=== PATIENT | female | born 1950 | race Caucasian/White ===

== ENCOUNTER 2016-09-02 09:40 | Observation (INO) | payer OTHER ==
[2016-08-29 08:00] VITALS: BMI 24.0
[~2016-09-02] VITALS: Ht 167.6 cm; Wt 72.0 kg
[~2016-09-02 09:40] MED LIST: ALPR1TAB3 PO; BRIM0.1S OPB; FENTANYL CITRATE INJ 50 MCG/1 ML 2 ML VIAL ONE; LSN25 PO; METO100T44 PO; MIDAZOLAM HCL 1 MG/ML 2ML VIAL ONE; OXGN; PANT1TAB48 PO; SPIR25TA PO
[2016-09-02 09:57] VITALS: BP 93/46; PULSE 71; TEMP 36.8; O2SAT 94; Ht 167.6 cm; Wt 72.0 kg
[2016-09-02 10:23] LABS: PROTHROMBIN TIME (PATIENT) 10.2 SECONDS (9.0-12.0)
[2016-09-02] MEDS ORDERED: DEXAMETHASONE SOD INJ 4 MG/ML VIAL ONE (10:25)
[2016-09-02] MEDS ORDERED: LIDOCAINE HCL 2% 2 ML VIAL (20MG/ML) ONE ×2 (10:25→11:14)
[2016-09-02] MEDS ORDERED: PROPOFOL IV EMULSION 10 MG/ML 20 ML VIAL IV ONE ×2 (10:25→11:14)
[2016-09-02] MEDS ORDERED: MIDAZOLAM HCL 1 MG/ML 2ML VIAL ONE (10:25)
[2016-09-02] MEDS ORDERED: ONDANSETRON INJ 2 MG/ML 2 ML VIAL ONE ×2 (10:25→11:14)
--- NOTE | 2016-09-02 10:25 | History & Physical Bridge Note ---
H&P Re-Evaluation Bridge Note: I have examined the patient, reviewed the History & Physical and in the interval since the performance of the History & Physical I have noted the following changes of clinical significance: No changes noted pt marked coumadin had been stopped son to be here later
[2016-09-02] MEDS ORDERED: FENTANYL CITRATE INJ 50 MCG/1 ML 2 ML VIAL ONE (10:26)
[2016-09-02] MEDS: BACITRACIN 50000 UNIT VIAL ONE ×2 (10:33→11:45)
[2016-09-02] MEDS ORDERED: BUPIVACAINE 0.5 % 5 MG/1 ML MPF 30ML VIAL ONE (10:33)
[2016-09-02] MEDS ORDERED: HYDROmorphone INJ 2 MG/ML SYR/VIAL ONE (10:49)
[2016-09-02] MEDS ORDERED: VANCOMYCIN 1GM/270ML NSS IV SCH (11:00)
[2016-09-02] MEDS ORDERED: EpHEDrine SULFATE 50MG/5ML SYR ONE (11:14)
[2016-09-02] MEDS ORDERED: VANCOMYCIN HCL 1000MG/20ML VIAL ONE (11:19)
--- NOTE | 2016-09-02 11:42 | [facility] Post Operative Brief Note ---
Immediate Operative Summary Operative Date September 02, 2016. Pre-Operative Diagnosis Incarcerated Left Inguinal Hernia Post-Operative Diagnosis Incarcerated Left Inguinal Hernia indirect Procedure(s) Performed Left Open Inguinal Hernia Repair(олег) Surgeon Dr. Albright Machine Fitter Surgeon(s) Yokasta Kunz-PAC Estimated Blood Loss 5 ML Findings indirect left ing hernia large displacing ext oblique fibers to sub cut Specimens none
[2016-09-02] MEDS ORDERED: LACTATED RINGER'S 1000ML 1,000 ML IV SCH (11:52)
[2016-09-02] MEDS ORDERED: ONDANSETRON INJ 2 MG/ML 2 ML VIAL IV PRN ×2 (12:00→12:15)
[2016-09-02] MEDS ORDERED: MoRPHine SULFATE 4 MG/ML 1 ML CARP\\VIAL IV PRN (12:00)
[2016-09-02] MEDS ORDERED: HYDROmorphone INJ 1 MG/ML SYR ONE (12:01)
[2016-09-02] MEDS ORDERED: HYDROmorphone INJ 2 MG/ML SYR/VIAL IV PRN (12:15)
[2016-09-02] MEDS ORDERED: EpHEDrine SULFATE INJ 50 MG/ML AMP IV PRN (12:15)
[2016-09-02] MEDS ORDERED: ATROPINE SULFATE 0.1 MG/ML 5ML SYR IV PRN (12:15)
[2016-09-02] MEDS ORDERED: PHENYLEPHRINE 100MCG/ML 5ML SYR IV PRN (12:15)
--- NOTE | 2016-09-02 12:30 | Anesthesiology Progress Note ---
Anesthesia Post Op Note Date & Time September 02, 2016 at 12:29 Vital Signs Pain Intensity: 3 Vital Signs Past 12 Hours Date Time Temp Pulse Resp B/P Pulse Ox O2 Delivery O2 Flow Rate FiO2 09/02/16 12:21 72 16 09/02/16 12:21 73 16 99 09/02/16 12:20 116/53 09/02/16 12:16 75 16 09/02/16 12:16 73 16 99 09/02/16 12:15 117/60 09/02/16 12:11 71 13 100 09/02/16 12:11 72 13 09/02/16 12:10 118/61 09/02/16 12:08 77 16 100 09/02/16 12:08 76 16 09/02/16 12:05 124/63 09/02/16 12:03 74 19 100 09/02/16 12:03 75 19 09/02/16 12:00 121/67 09/02/16 11:58 78 20 09/02/16 11:58 77 20 100 09/02/16 11:55 126/73 09/02/16 11:53 82 15 122/66 100 09/02/16 11:53 82 15 09/02/16 11:53 36.6 84 16 112/66 100 Mask 10 09/02/16 09:57 36.8 71 16 93/46 94 Room Air Notes Mental Status: alert / awake / arousable, participated in evaluation Pt Amnestic to Procedure: Yes Nausea / Vomiting: adequately controlled Pain: adequately controlled Airway Patency, RR, SpO2: stable & adequate BP & HR: stable & adequate Hydration State: stable & adequate Anesthetic Complications: no major complications apparent
[2016-09-02] MEDS: OXYCODONE/ACETAMINOPHEN 5-325 TAB PO PRN ×3 (13:16→23:43)
[2016-09-02] MEDS: ALPRAZOLAM 0.5 MG TAB PO SCH ×3 (13:19→21:14)
[2016-09-02] MEDS ORDERED: NURSING VERBAL MED ORDER ONE (14:30)
[2016-09-02] MEDS ORDERED: IV FLUIDS COMPLETED PRN (14:30)
--- NOTE | 2016-09-02 14:33 | OPERATIVE REPORT ---
DATE OF OPERATION: 09/02/2016 SURGEON: Dr. Albright. COMMERCIAL LOAN MANAGER: GEO Connelly PREOPERATIVE DIAGNOSIS: Left inguinal hernia. POSTOPERATIVE DIAGNOSIS: Left incarcerated indirect inguinal hernia. PROCEDURE: Open repair, left indirect inguinal hernia with mesh with primary (Bassini) repair. SUMMARY: The patient was brought into the operating room theater. The left lower quadrant was prepped with Betadine scrubbing solution and properly draped. We had ordered some vancomycin to be given to the patient, in case we would put mesh in there, but this was handled by anesthesia and pharmacy. We used 1% Xylocaine without epinephrine to infiltrate the skin 2 fingerbreadths medial anterior superior iliac crest, the fascia external oblique where local was used along the incision. We made an incision by the groin crease parallel to the inguinal ligament extending about 2.5 to 3 inches, deepened through subcutaneous tissue. The patient had a significant amount of fatty tissue between the subQ was ligated, but then we were able to get what appears to be under Milana fascia, well delineated fatty tissue consistent with possibly lipoma. We were not sure where this was coming from, at first it had the appearance that this was a femoral hernia coming through the canal since we could see some external oblique fibers superomedially which had the impression that this was the shelving portion of the inguinal ligament. As we freed more around this, we then got onto the symphysis pubis. We were able to identify that this was actually the external oblique fascia there had been ripped from the inferior aspect of this large incarcerated hernia that had gone through the fibers of the external oblique into the subcutaneous tissue and also to the external ring. We actually could see the fibers of the external oblique down into the inferiorly and all the way down to the inguinal ligament. With this, we then maneuvered all this fatty tissue out of the way and got to the point that this was an indirect hernia coming through a significant amount of fatty tissue. The cord structure and round ligament was barely visible with fiber stand. We identified the ilioinguinal nerve and avoided it. At this point, I elected to use a primary repair of this rather than put any mesh, since the tissue was lax and therefore we used #0 silk suture approximating transversalis fascia, the shelving portion of the inguinal ligament. We paid attention to avoid the ilioinguinal nerve. There was a small vessel along the inferior epigastric that we ligated with 3-0 silk suture. The repair appeared to be solid. Then we closed the external oblique on top of the repair with interrupted 3-0 silk suture completely reconstructing the floor of the external oblique to the external ring, which was nonexistent. Subcutaneous tissue was irrigated, skin edges approximated with edgar after we closed the Milana fascia with 2-0 Vicryl suture. The procedure was tolerated well by the patient. Estimated blood loss approximately 5 mL. The patient was taken to recovery room in good condition. I attest to the content of the Intraoperative Record and any orders documented therein. Any exceptio ns are noted below.
--- NOTE | 2016-09-02 15:07 | CARDIOLOGY CONSULTATION ---
DATE OF CONSULTATION: 09/02/2016 DATE OF CONSULTATION: 09/02/2016. REQUESTED BY: Dr. Albright. REASON FOR CONSULTATION: Postop cardiac management. HISTORY OF PRESENT ILLNESS: This is a 66-year-old female who is well known to our service with a nonischemic cardiomyopathy and severe LV dysfunction with an estimated left ventricular ejection fraction of 20%. She is [place] [employer] class 3 congestive heart failure. She has an ICD biventricular pacemaker in place. This morning she underwent an elective inguinal hernia repair that was noncomplicated. She is admitted for observation post surgery. She is actually doing quite well and is ambulating to the bathroom and has no complaints. ALLERGIES: CEFAZOLIN, CIPROFLOXACIN, CLINDAMYCIN, DIPHENHYDRAMINE, FENTANYL, DILANTIN, TRAMADOL, ZOLPIDEM. PAST MEDICAL HISTORY: As outlined above, the patient has a nonischemic cardiomyopathy with severe LV dysfunction and an estimated left ventricular ejection fraction of 20% first diagnosed in 2009 at which time she had normal coronaries by cardiac catheterization. She has had chronic systolic heart failure and is currently at class 3 [place] [employer]. The patient is status post biventricular pacemaker ICD which was implanted for primary prevention. She is status post hip replacement. She does have a history of anxiety and depression. SOCIAL HISTORY: She lives independently. She is a nonsmoker. FAMILY MEDICAL HISTORY: Noncontributory. REVIEW OF SYSTEMS: A 10-point review of systems is negative except for the history of chief complaint. PHYSICAL EXAMINATION: GENERAL: She is alert and oriented in no acute distress. VITAL SIGNS: Blood pressure is 112/60, pulse is regular at 68. She is afebrile. HEAD, EYES, EARS, NOSE, AND THROAT: She is normocephalic. Pupils are equal and reactive to light. Extraocular muscles are intact bilaterally. NECK: The neck veins are flat. Carotids have good upstrokes bilaterally without bruits. Thyroid is nonpalpable. RESPIRATORY: Breath sounds equal bilaterally and clear to auscultation. CARDIOVASCULAR: Heart has a regular rhythm. Normal S1, S2. No S3 or S4. GASTROINTESTINAL: Abdomen is soft and nontender. The patient is post-inguinal hernia repair. EXTREMITIES: Free of edema, digit clubbing, or cyanosis. NEUROLOGIC: Grossly intact. SKIN: Warm to touch. LYMPH NODES: Negative to palpation. LABORATORY DATA: Admission INR is 1.0. IMPRESSION: 1. Status post inguinal hernia repair. 2. Nonischemic cardiomyopathy with an estimated left ventricular ejection fraction of 20%. 3. ICD biventricular pacemaker. RECOMMENDATIONS: The patient will be started on her home medications. She will also be started on warfarin tonight. If all goes well, I suspect that her hospital stay will be brief.
[2016-09-02 15:30] VITALS: BP 80/51; PULSE 70; TEMP 36.3; O2SAT 95
[2016-09-02] MEDS: WARFARIN SOD 5 MG TAB PO SCH (16:54)
[2016-09-02 19:05] VITALS: BP 80/51; PULSE 79; TEMP 36.4; O2SAT 95
[2016-09-02 19:45] VITALS: BP 93/58
[2016-09-02 20:00] VITALS: O2SAT 95
[2016-09-02] MEDS: METOPROLOL SUCC 50MG EXT REL TAB PO SCH (21:00)
[2016-09-02] MEDS ORDERED: LISINOPRIL 2.5 MG TAB PO SCH (21:00)
[2016-09-02] MEDS: LISINOPRIL 2.5 MG TAB PO SCH (21:00)
[2016-09-02 21:10] VITALS: BP 100/89
[2016-09-02] MEDS: DOCUSATE SODIUM 100 MG CAP PO SCH (21:10)
[2016-09-02] MEDS: PANTOprazole SOD 40 MG TAB PO SCH (21:10)
[2016-09-02] MEDS: SPIRONOLACTONE 25 MG TAB PO SCH (21:11)
[2016-09-02] MEDS: TRAVOPROST Z 0.004% OPH SOLN 2.5 ML BTL OPB SCH (21:11)
[2016-09-02] MEDS: [UNRECOGNIZED DRUG - REMARK] SCH (23:32)
[2016-09-03] VITALS (17 sets, daily range): BP systolic 81–115; BP diastolic 50–71; PULSE 70–92; TEMP 36.5–37.6; O2SAT 91–98
[2016-09-03] MEDS: OXYCODONE/ACETAMINOPHEN 5-325 TAB PO PRN ×3 (06:23→21:21)
[2016-09-03 07:20] LABS: BASO % 0.3 %; BASO ABS # 0.02 K/uL (0-0.2); COMPLETE YES; EOS % 3.2 %; HEMATOCRIT 33.3 % (37-47); LYMPH % 27.2 %; LYMPH ABS # 1.85 K/uL (1.2-3.4); MEAN CELL VOLUME 90.5 fL (80-100); MEAN CORPUSCULAR HEMOGLOBIN 28.5 pg (25-34); MEAN CORPUSCULAR HGB CONC 31.5 g/dl (32-36); MEAN PLATELET VOLUME 9.1 fL (7.4-10.4); NEUT % 60.3 %; PLATELET COUNT 197 K/uL (130-400); RED BLOOD COUNT 3.68 M/uL (4.2-5.4)
--- NOTE | 2016-09-03 07:42 | SURGERY PROGRESS NOTE ---
DATE: 09/03/2016 Natali is resting comfortably. She has virtually no pain in the left inguinal area from the hernia. Intraoperative findings were discussed with her. The abdominal exam is negative. The dressing is dry. Last vitals showed a temperature of 36.6, pulse 71, respirations not recorded, blood pressure 90/56, O2 sats 96 on room air. She has voided without problem. At this point, certainly she can go home later on today. She will be started on Coumadin. We will continue with such. Will see her back in the office in 1 week. She was instructed as far as wound care. She can shower and only lift a gallon of milk. We will make sure to check with cardiology prior to discharging her.
[2016-09-03 07:55] LABS: BUN/CREATININE RATIO 10.1 (10-20); CALCIUM 8.2 mg/dl (8.5-10.1); CREATININE 0.7 mg/dl (0.60-1.20); POTASSIUM 3.8 mmol/L (3.5-5.1)
[2016-09-03] MEDS: [UNRECOGNIZED DRUG - REMARK] SCH ×3 (08:00→23:45)
[2016-09-03] MEDS ORDERED: OXYC-57 PO (08:09)
--- NOTE | 2016-09-03 08:11 | Discharge Instructions ---
Discharge Instructions Date of Service September 03, 2016. Admission Reason for Admission: Left Inguinal Hernia Discharge Discharge Diagnosis / Problem: Inguinal hernia repair Discharge Goals Goal(s): Decrease discomfort Activity Recommendations Activity Limitations: as noted below Lifting Limitations: no more than 10 pounds Shower/Bathe: no limitations (ok to shower) Driving or Machine Use: 1 week . Instructions / Follow-Up Instructions / Follow-Up Dr. Albright in 1 week, call [phone] if you do not already have an appt Current Hospital Diet Patient's current hospital diet: Regular Diet Discharge Diet Recommended Diet: Regular Diet Procedures Procedures Performed: Left Open Inguinal Hernia Repair(олег) Pending Studies Studies pending at discharge: no Medical Emergencies . Who to Call and When: Medical Emergencies: If at any time you feel your situation is an emergency, please call 911 immediately. . Non-Emergent Contact Non-Emergency issues call your: Surgeon Call Non-Emergent contact if: you have a fever, temperature is above 101.5, your pain is not controlled, wound has increased redness . "Provider Documentation" section prepared by Maxime Kunz. . VTE Core Measure Inpt VTE Proph given/why not?: SCD's
[2016-09-03] MEDS: METOPROLOL SUCC 50MG EXT REL TAB PO SCH ×2 (09:00→21:20)
[2016-09-03] MEDS: TORSEMIDE 20 MG TAB PO SCH (09:00)
[2016-09-03] MEDS: ALPRAZOLAM 0.5 MG TAB PO SCH ×4 (09:00→21:00)
[2016-09-03] MEDS: PANTOprazole SOD 40 MG TAB PO SCH ×2 (09:30→21:21)
[2016-09-03] MEDS: DOCUSATE SODIUM 100 MG CAP PO SCH ×2 (09:30→21:20)
--- NOTE | 2016-09-03 09:53 | Anesthesiology Progress Note ---
Anesthesia Post Op Note Date & Time September 03, 2016 at 09:53 Vital Signs Pain Intensity: 8.0 Vital Signs Past 12 Hours Date Time Temp Pulse Resp B/P Pulse Ox O2 Delivery O2 Flow Rate FiO2 09/03/16 09:30 86/55 09/03/16 07:04 36.5 73 16 91/56 91 Room Air 09/03/16 04:00 36.6 71 90/56 98 Nasal Cannula 2.0 09/03/16 04:00 98 Nasal Cannula 2.0 09/03/16 00:34 72 100/63 09/03/16 00:00 36.5 70 88/51 98 2.0 09/03/16 00:00 98 Nasal Cannula 2.0 Notes Mental Status: alert / awake / arousable, participated in evaluation Pt Amnestic to Procedure: Yes Nausea / Vomiting: adequately controlled Pain: adequately controlled Airway Patency, RR, SpO2: stable & adequate BP & HR: stable & adequate Hydration State: stable & adequate Anesthetic Complications: no major complications apparent
--- NOTE | 2016-09-03 10:21 | Cardiology Follow-Up ---
Subjective General Date of Service: September 03, 2016. Chief Complaint: Fatigue Pt evaluation today including: conversation w/ patient, physical exam, chart review, lab review, review of studies, review of inpatient medication list History of Present Illness + Incisional discomfort. Walked earlier this morning without significant difficulty. Tired, lethargic currently Hypotension observed, below systolic baseline of 90's-100's No chest pain. No palpitations. Baseline dyspnea, without orthopnea, PND, or increased edema. Telemetry: Sinus, paced, Rare PVC's in singles, one couplet. Allergies Coded Allergies: Cefazolin (Verified Allergy, Severe, ANAPHYLAXIS, 08/29/16) Phenytoin (Verified Allergy, Intermediate, HIVES, 08/29/16) PER ROUTINE PREOP ORDERS [id number] Diphenhydramine (Verified Allergy, Mild, HAS OPPOSITE EFFECTS, 08/29/16) Zolpidem (Verified Allergy, Mild, HAS OPPOSITE EFFECTS, 08/29/16) Ciprofloxacin (Verified Allergy, Unknown, UNKNOWN, 08/29/16) Clindamycin (Verified Allergy, Unknown, UNKNOWN, 08/29/16) Fentanyl (Verified Allergy, Unknown, HAS OPPOSITE EFFECTS, 08/29/16) Tramadol (Verified Adverse Reaction, Intermediate, SEIZURE, 09/02/16) PER ROUTINE PRE-OP ORDERS [id number] Social History Smoking Status: Never Smoker Hx Tobacco Use In Past Year?: No Hx Alcohol Use - Type And Amou: No Hx Substance Use - Type And Am: No Problem List Medical Problems: (1) Hypomagnesemia Status: Acute Review of Systems Respiratory: No cough, No dyspnea at rest, No dyspnea on exertion, No hemoptysis, No shortness of breath, No sputum, No wheezing Cardiac: No chest pain, No edema, No orthopnea, No palpitations Physical Exam Vital Signs Last Vital Signs Documentation Date Time Temp Pulse Resp B/P Pulse Ox O2 Delivery O2 Flow Rate FiO2 09/03/16 09:30 86/55 09/03/16 07:04 36.5 73 16 91 Room Air 09/03/16 04:00 2.0 Physical Exam Constitutional: Level of Distress: NAD Psychiatric: Mental Status: lethargic Orientation: to time, to place, to person Memory: recent memory normal, remote memory normal Head: normocephalic, atraumatic Eyes: Pupils: PERRLA Neck: pertinent finding (Neck veins are flat) Lungs: Respiratory effort: no dyspnea Auscultation: breath sounds normal, CTA except as noted, no wheezing, no rales/crackles, no rhonchi Cardiovascular: Heart Auscultation: RRR (76 bpm), no rubs Peripheral Pulses: Radial Pulse: normal on the left, normal on the right Dorsalis Pedis Pulse: normal on the left, normal on the right Abdomen: Bowel Sounds: normal Extremities: no cyanosis, no clubbing, edema (Minimal) Neurologic: Cranial Nerves: grossly intact Assessment and Plan Assessment and Plan Status post September 02, 2016 open repair of an incarcerated indirect left inguinal hernia by Dr. Albright History of severe nonischemic cardiomyopathy with EF 20%, NYHA Class III+ dyspnea, status post Medtr[employer] BiV-ICD implantation History of ventricular fibrillation status post successful ICD discharge, April 2016 Normal coronaries via September 21, 2009 cardiac catheterization Current volume status appears to be mildly hypovolemic RECOMMENDATIONS/PLAN: Attempt to continue Toprol XL as prescribed. Hold torsemide and spironolactone this morning Hold lisinopril tonight. Continue telemetry. Cardiology attending physician: Patient seen and examined at the bedside. She is resting comfortably. Blood pressure slowly improving. A.m. antihypertensive medications were held including beta carola therapy. Denies chest pain or shortness of breath. Mild incisional discomfort noted. PE: VSS, GEN: NAD, AAO x 3. Heart: Regular, normal S1-S2. No murmur. Lungs: Clear bilateral, no rales, rhonchi, or wheeze. Extremities: No edema. A/P: Agree with above PAC history, physical exam, assessment, and plan. We will attempt to continue beta carola therapy uninterrupted. Other antihypertensive medications will remain on hold including diuretic therapy. Will reassess volume status, blood pressure in the a.m. Continue telemetry monitoring. Tk Sheriff DO, [facility] Laboratory Results Last 24 Hours Test 09/03/16 06:53 White Blood Count 6.80 K/uL Red Blood Count 3.68 M/uL Hemoglobin 10.5 g/dL Hematocrit 33.3 % Mean Corpuscular Volume 90.5 fL Mean Corpuscular Hemoglobin 28.5 pg Mean Corpuscular Hemoglobin Concent 31.5 g/dl Platelet Count 197 K/uL Mean Platelet Volume 9.1 fL Neutrophils (%) (Auto) 60.3 % Lymphocytes (%) (Auto) 27.2 % Monocytes (%) (Auto) 9.0 % Eosinophils (%) (Auto) 3.2 % Basophils (%) (Auto) 0.3 % Neutrophils # (Auto) 4.10 K/uL Lymphocytes # (Auto) 1.85 K/uL Monocytes # (Auto) 0.61 K/uL Eosinophils # (Auto) 0.22 K/uL Basophils # (Auto) 0.02 K/uL RDW Standard Deviation 52.3 fL RDW Coefficient of Variation 15.7 % Immature Granulocyte % (Auto) 0.0 % Immature Granulocyte # (Auto) 0.00 K/uL Sodium Level 143 mmol/L Potassium Level 3.8 mmol/L Chloride Level 107 mmol/L Carbon Dioxide Level 30 mmol/L Anion Gap 6.0 mmol/L Blood Urea Nitrogen 7 mg/dl Creatinine 0.70 mg/dl Est Creatinine Clear Calc Drug Dose 82.4 ml/min Estimated GFR () 106.1 Estimated GFR (Non- 91.6 BUN/Creatinine Ratio 10.1 Random Glucose 85 mg/dl Calcium Level 8.2 mg/dl
[2016-09-03] MEDS: WARFARIN SOD 5 MG TAB PO SCH (17:35)
[2016-09-03] MEDS: LISINOPRIL 2.5 MG TAB PO SCH (21:00)
[2016-09-03] MEDS: SPIRONOLACTONE 25 MG TAB PO SCH (21:00)
[2016-09-03] MEDS: TRAVOPROST Z 0.004% OPH SOLN 2.5 ML BTL OPB SCH (21:21)
[2016-09-04] MEDS: OXYCODONE/ACETAMINOPHEN 5-325 TAB PO PRN ×2 (03:11→12:24)
[2016-09-04 04:23] VITALS: BP 104/68; PULSE 79; TEMP 36.7; O2SAT 95
--- NOTE | 2016-09-04 07:07 | SURGERY PROGRESS NOTE ---
DATE: 09/04/2016 Natali is doing well. She is alert, coherent and in no distress, having virtually no pain. Her last vitals showed a temperature of 36.7, pulse 79, respirations 19, blood pressure 104/68, O2 sats 95 on room air. The dressing on the left groin incision was removed. The incision is intact. There is no ecchymosis, no drainage. At this point, we will leave the final decision discharge to the cardiology service. From my point of view, she can be discharged. She can and increase her diet. Instructions will be given regarding her activity and followup.
[2016-09-04 08:41] VITALS: BP_SYST 102; BP_SYST 75; BP_DIAS 48; BP_DIAS 67; PULSE 75; TEMP 36; O2SAT 95
[2016-09-04 08:55] VITALS: BP_SYST 78; BP_SYST 95; BP_DIAS 48; BP_DIAS 61
[2016-09-04] MEDS: DOCUSATE SODIUM 100 MG CAP PO SCH (08:55)
[2016-09-04] MEDS: METOPROLOL SUCC 50MG EXT REL TAB PO SCH ×2 (08:55→09:06)
[2016-09-04] MEDS: TORSEMIDE 20 MG TAB PO SCH (08:55)
[2016-09-04] MEDS: PANTOprazole SOD 40 MG TAB PO SCH (08:55)
[2016-09-04] MEDS: ALPRAZOLAM 0.5 MG TAB PO SCH (09:02)
[2016-09-04 09:05] VITALS: BP 102/50
--- NOTE | 2016-09-04 09:24 | Cardiology Follow-Up ---
Subjective General Date of Service: September 04, 2016. Chief Complaint: Post op evaluation Pt evaluation today including: conversation w/ patient, physical exam, chart review, lab review, review of studies, review of inpatient medication list History of Present Illness No complaints. Anxious to return home. Denies chest pain, palpitations, or dyspnea above baseline. No orthopnea, PND, or increased edema. Appetite normal. Tolerable incisional discomfort Telemetry: Sinus, paced. Transient sinus tachycardia overnight. Rare PVC's in singles, couplet. Allergies Coded Allergies: Cefazolin (Verified Allergy, Severe, ANAPHYLAXIS, 08/29/16) Phenytoin (Verified Allergy, Intermediate, HIVES, 08/29/16) PER ROUTINE PREOP ORDERS [id number] Diphenhydramine (Verified Allergy, Mild, HAS OPPOSITE EFFECTS, 08/29/16) Zolpidem (Verified Allergy, Mild, HAS OPPOSITE EFFECTS, 08/29/16) Ciprofloxacin (Verified Allergy, Unknown, UNKNOWN, 08/29/16) Clindamycin (Verified Allergy, Unknown, UNKNOWN, 08/29/16) Fentanyl (Verified Allergy, Unknown, HAS OPPOSITE EFFECTS, 08/29/16) Tramadol (Verified Adverse Reaction, Intermediate, SEIZURE, 09/02/16) PER ROUTINE PRE-OP ORDERS [id number] Social History Smoking Status: Never Smoker Hx Tobacco Use In Past Year?: No Hx Alcohol Use - Type And Amou: No Hx Substance Use - Type And Am: No Problem List Medical Problems: (1) Hypomagnesemia Status: Acute Physical Exam Vital Signs Last Vital Signs Documentation Date Time Temp Pulse Resp B/P Pulse Ox O2 Delivery O2 Flow Rate FiO2 09/04/16 09:05 102/50 09/04/16 08:41 36.0 75 29 95 Room Air 09/03/16 04:00 2.0 Physical Exam Constitutional: Level of Distress: NAD Psychiatric: Orientation: to time, to place, to person Memory: recent memory normal, remote memory normal Head: normocephalic, atraumatic Eyes: Pupils: PERRLA Neck: pertinent finding (Neck veins are flat) Lungs: Respiratory effort: no dyspnea Auscultation: breath sounds normal, CTA except as noted, no wheezing, no rales/crackles, no rhonchi Cardiovascular: Heart Auscultation: RRR, no rubs Peripheral Pulses: Radial Pulse: normal on the left, normal on the right Dorsalis Pedis Pulse: normal on the left, normal on the right Abdomen: Bowel Sounds: normal Extremities: no cyanosis, no edema, no clubbing Neurologic: Cranial Nerves: grossly intact Assessment and Plan Assessment and Plan Status post September 02, 2016 open repair of an incarcerated indirect left inguinal hernia by Dr. Albright History of severe nonischemic cardiomyopathy with EF 20%, NYHA Class III+ dyspnea, status post Medtronic BiV-ICD implantation History of ventricular fibrillation status post successful ICD discharge, April 2016 Normal coronaries via September 21, 2009 cardiac catheterization Current volume status appears normovolemic. RECOMMENDATIONS/PLAN: OK for discharge to home Hold torsemide, spironolactone, and lisinopril today. Resume as before hospitalization, in the AM of 09/05/2016 Continue Toprol XL as prescribed. Cardiology follow-up in 1-2 weeks. Office aware, will call patient with arrangements. CARDIOLOGY ATTENDING ADDENDUM: Case discussed with Mr Paulino. Patient was discharged before she was examined by the undersigned. Agree with Shaun Paulino PA-C's findings and plans as documented above.
[2016-09-04 10:33] VITALS: BP 102/50; PULSE 75; TEMP 36; O2SAT 95
--- NOTE | 2016-09-06 10:42 | DISCHARGE SUMMARY ---
PRIMARY DISCHARGE DIAGNOSIS: Incarcerated left inguinal hernia. SECONDARY DISCHARGE DIAGNOSES: 1. Cardiomyopathy. 2. Anxiety. PROCEDURE PERFORMED: Open left indirect inguinal hernia repair ([place]). CONSULTATIONS: [facility]. HOSPITAL COURSE: The patient is a 66-year-old female brought in through same day and taken to the operating room for repair of chronically incarcerated left inguinal hernia. The procedure was well tolerated. She was transferred to PCU for monitoring given her history of cardiomyopathy. Cardiology was consulted routinely. She did well overnight and on postoperative day 1 was stable from a surgical standpoint; however, her systolic pressure was running in the 80s. She was continued on her Toprol, but her torsemide, lisinopril and spironolactone were held. By postoperative day 2, her blood pressure had remained stable, was running in the 90s-100s systolic, which is her baseline. She was tolerating diet and oral analgesics. Incision was dry. She was stable for discharge. DISCHARGE INSTRUCTIONS: Discharge home. Follow up with Dr. Albright in 1 week. Follow up with Shaun Paulino in 1-2 weeks. DISCHARGE MEDICATIONS: Percocet 1-2 tablets every 4 hours as needed. Continue to hold her lisinopril, spironolactone and torsemide for this evening dose and resume tomorrow with her regular routine. Resume Coumadin 5 mg daily, Protonix 40 mg daily, Toprol-XL 100 mg b.i.d., Xanax 1 mg 4 times daily as needed, Alphagan eyedrops, Travatan eyedrops and nighttime oxygen.
[2016-10-21] MEDS ORDERED: TRAV0.00 OPB (13:55)
[2016-10-21] MEDS ORDERED: WARF5TAB7 PO (17:33)
[2016-11-14] MEDS ORDERED: SPR25 PO ×2 (10:22→11:00)
[2016-11-14] MEDS ORDERED: LSN5 PO (10:22)
[2016-11-14] MEDS ORDERED: ACET-749 PO (10:23)
[2016-11-14] MEDS ORDERED: DMD20 PO (11:00)
[2017-01-10] MEDS ORDERED: MCRK20 PO (15:54)
== END 2016-09-04 12:59 | disposition home or self-care (01) ==
LOC: ENRESERVTM → ENRESERVDT → C.ACU 09:40 → C.2T 11:57 → INTOOBSV 11:57
PROVIDERS: ADMIT Surgery; ATTEND Surgery
DX: K40.30 Unilateral inguinal hernia, with obstruction, without gangrene, not specified as recurrent (principal); R53.83 Other fatigue; I50.22 Chronic systolic (congestive) heart failure; I42.9 Cardiomyopathy, unspecified; Z95.810 Presence of automatic (implantable) cardiac defibrillator

== ENCOUNTER 2016-10-21 18:14 | Emergency (ER) | payer OTHER ==
[~2016-10-21] VITALS: Ht 167.6 cm; Wt 74.4 kg
[~2016-10-21 18:14] MED LIST changes: -FENTANYL CITRATE INJ 50 MCG/1 ML 2 ML VIAL ONE; -LSN25 PO; -MIDAZOLAM HCL 1 MG/ML 2ML VIAL ONE; +OXYC-57 PO; -SPIR25TA PO; +TRAV0.00 OPB; +WARF5TAB7 PO
[2016-10-21 18:16] VITALS: TEMP 36.5; Ht 167.6 cm; Wt 74.4 kg
[2016-10-21 18:33] VITALS: O2SAT 95
[2016-10-21] MEDS ORDERED: [UNRECOGNIZED DRUG - CODE] PO (19:05)
[2016-10-21] MEDS ORDERED: DMD20 PO (19:05)
[2016-10-21 19:08] LABS: BASO % 0.4 %; BASO ABS # 0.04 K/uL (0-0.2); COMPLETE YES; EOS % 1.3 %; HEMATOCRIT 39.7 % (37-47); IG% 0.2 %; LYMPH % 18.1 %; LYMPH ABS # 1.89 K/uL (1.2-3.4); MEAN CELL VOLUME 86.1 fL (80-100); MEAN CORPUSCULAR HEMOGLOBIN 29.3 pg (25-34); MEAN PLATELET VOLUME 9.5 fL (7.4-10.4); MONO % 3.8 %; NEUT % 76.2 %; PLATELET COUNT 310 K/uL (130-400); RED BLOOD COUNT 4.61 M/uL (4.2-5.4); WHITE BLOOD COUNT 10.47 K/uL (4.8-10.8)
[2016-10-21] MEDS ORDERED: SPR25 PO (19:08)
--- NOTE | 2016-10-21 19:19 | DIAGNOSTIC IMAGING REPORT ---
CHEST ONE VIEW PORTABLE CLINICAL HISTORY: Shortness of breath COMPARISON STUDY: 04/12/2016 FINDINGS: The heart is borderline enlarged. There is a left subclavian pacer/defibrillator present. There is no failure. There is no lobar consolidation. There are subsegmental atelectatic changes at the right lung base. Postsurgical changes involve the right humerus.[ IMPRESSION: No active disease in the chest. Electronically signed by: Francisco Adam M.D. 10/21/2016 7:18 PM Dictated Date/Time: 10/21/2016 7:17 PM
[2016-10-21 19:20] LABS: INR 1.8 (0.9-1.1); PARTIAL THROMBOPLASTIN RATIO 1.3; PROTHROMBIN TIME (PATIENT) 19.6 SECONDS (9.0-12.0)
[2016-10-21 19:38] LABS: ALB/GLOB RATIO 0.9 (0.9-2); ALKALINE PHOSPHATASE 136 U/L (45-117); ALT/SGPT 21 U/L (12-78); AST/SGOT 23 U/L (15-37); BLOOD UREA NITROGEN 11 mg/dl (7-18); BUN/CREATININE RATIO 11.7 (10-20); CALCIUM 8.5 mg/dl (8.5-10.1); CARBON DIOXIDE 27 mmol/L (21-32); CHLORIDE 101 mmol/L (98-107); GLUCOSE 112 mg/dl (70-99); POTASSIUM 3.6 mmol/L (3.5-5.1); SODIUM 141 mmol/L (136-145)
--- NOTE | 2016-10-21 19:57 | EMERGENCY ROOM VISIT NOTE ---
History Report prepared by Tyrese: Norman Arias Under the Supervision of: Dr. Gallito Dominguez D.O. First contact with patient: 18:29 Chief Complaint: CARDIAC ASSESSMENT Stated Complaint: CAN'T BREATH,CARDIAC PT,FILLING W/FLUID Nursing Triage Summary: pt reports sob started friday called dr paulino took extra torsemide. pt reports cardiac pt sob worse today History of Present Illness The patient is a 66 year old female who presents to the Emergency Room with complaints of intermittent shortness of breath for the past six days. The shortness of breath is worse with exertion. The patient's shortness of breath was worse today. The patient has had similar breathing difficulty in the past. She is also feeling very tired and feel like she could fall asleep. The patient was in contact with Shaun Paulino PA-C (Cardiology). She takes Torsemide for a history of heart failure. Source of History: patient Onset: six days ago Position: other (respiratory) Quality: other (shortness of breath) Timing: intermittent Modifying Factors (Worsening): exertion Associated Symptoms: + fatigue Review of Systems See HPI for pertinent positives & negatives. A total of 10 systems reviewed and were otherwise negative. Past Medical & Surgical Medical Problems: (1) Calculus of kidney and ureter (2) Cardiomyopathy (3) Chronic osteoarthritis (4) Dyslipidemia (5) Hypokalemia (6) Hypothyroidism (7) Inguinal hernia (8) Left bundle branch block (9) left ventricular mural thrombus (10) Mitral valve regurgitation (11) Pulmonary hypertension (12) s/p arthroscopy/meniscectomy right knee (13) s/p cardiac catheterization (14) s/p colonoscopy (15) s/p EGD (16) s/p hysterectomy (17) s/p ORIF right humerus fracture (18) s/p pacemaker insertion (19) s/p placement AICD (20) s/p sinus surgery (21) s/p ROBYN left (22) s/p ROBYN right (23) Systolic heart failure (24) Ventricular fibrillation Family History FH: breast cancer SISTER FH: lung disease FATHER Social History Smoking Status: Never Smoker Alcohol Use: none Drug Use: none Marital Status: Housing Status: lives with family Occupation Status: other Current/Historical Medications Scheduled Acetaminophen W/ Codeine (Acetaminophen/Codeine #4), 1 MG PO PRN UD Alprazolam (Xanax), 1 MG PO QID Brimonidine Tartrate (Alphagan P Oph), 1 DROP OPB BID Home O2 Therapy (Oxygen), 2 LITERS NA HS&PRN Metoprolol Succ (Toprol Xl) (Toprol-Xl ), 100 MG PO BID Pantoprazole (Protonix), 40 MG PO BID Spironolactone (Spironolactone), 25 MG PO QP Torsemide (Torsemide), 60 MG PO PT Travoprost (Travatan Z), 1 DROP OPB HS Warfarin Sod (Jantoven), 5 MG PO QPM Allergies Coded Allergies: Cefazolin (Verified Allergy, Severe, ANAPHYLAXIS, 08/29/16) Phenytoin (Verified Allergy, Intermediate, HIVES, 08/29/16) PER ROUTINE PREOP ORDERS [id number] Diphenhydramine (Verified Allergy, Mild, HAS OPPOSITE EFFECTS, 08/29/16) Zolpidem (Verified Allergy, Mild, HAS OPPOSITE EFFECTS, 08/29/16) Ciprofloxacin (Verified Allergy, Unknown, UNKNOWN, 08/29/16) Clindamycin (Verified Allergy, Unknown, UNKNOWN, 08/29/16) Fentanyl (Verified Allergy, Unknown, HAS OPPOSITE EFFECTS, 08/29/16) Tramadol (Verified Adverse Reaction, Intermediate, SEIZURE, 09/02/16) PER ROUTINE PRE-OP ORDERS [id number] Physical Exam Vital Signs Date Time Temp Pulse Resp B/P (MAP) Pulse Ox O2 Delivery O2 Flow Rate FiO2 10/21/16 19:32 106 20 113/71 97 Nasal Cannula 2.0 10/21/16 18:53 95 Nasal Cannula 2.0 10/21/16 18:47 107 17 107/70 96 Nasal Cannula 2.0 10/21/16 18:42 108 10/21/16 18:33 95 Nasal Cannula 2.0 10/21/16 18:30 91 Room Air 10/21/16 18:16 36.5 120 28 100/60 93 Room Air Physical Exam CONSTITUTIONAL/VITAL SIGNS: Reviewed / noted above. GENERAL: Non-toxic in appearance. INTEGUMENTARY: Warm, dry, and Cyr. HEAD: Normocephalic. EYES: without scleral icterus or trauma. ENT/OROPHARYNX: clear and moist. LYMPHADENOPATHY/NECK: Is supple without lymphadenopathy or meningismus. RESPIRATORY: Bibasilar crackles. No increased work of breathing. CARDIOVASCULAR: Regular rate and rhythm. GI/ABDOMEN: Soft and nontender. No organomegaly or pulsatile mass. No rebound or guarding. Normal bowel sounds. EXTREMITIES: Warm and well perfused. BACK: No CVA tenderness. NEUROLOGICAL: Intact without focal deficits. PSYCHIATRIC: normal affect. MUSCULOSKELETAL: Normally developed with good muscle tone. Medical Decision & Procedures ER Provider Diagnostic Interpretation: X ray results and stated below per my interpretation and radiology interpretation. CHEST ONE VIEW PORTABLE CLINICAL HISTORY: Shortness of breath COMPARISON STUDY: 04/12/2016 FINDINGS: The heart is borderline enlarged. There is a left subclavian pacer/defibrillator present. There is no failure. There is no lobar consolidation. There are subsegmental atelectatic changes at the right lung base. Postsurgical changes involve the right humerus.[ IMPRESSION: No active disease in the chest. Electronically signed by: Francisco Adam M.D. 10/21/2016 7:18 PM Dictated Date/Time: 10/21/2016 7:17 PM Laboratory Results 10/21/16 18:45 Red Blood Count 4.61, Mean Corpuscular Volume 86.1, Mean Corpuscular Hemoglobin 29.3, Mean Corpuscular Hemoglobin Concent 34.0, Mean Platelet Volume 9.5, Neutrophils (%) (Auto) 76.2, Lymphocytes (%) (Auto) 18.1, Monocytes (%) (Auto) 3.8, Eosinophils (%) (Auto) 1.3, Basophils (%) (Auto) 0.4, Neutrophils # (Auto) 7.98, Lymphocytes # (Auto) 1.89, Monocytes # (Auto) 0.40, Eosinophils # (Auto) 0.14, Basophils # (Auto) 0.04 10/21/16 18:45 Test 10/21/16 18:37 10/21/16 18:45 White Blood Count 10.47 K/uL (4.8-10.8) Red Blood Count 4.61 M/uL (4.2-5.4) Hemoglobin 13.5 g/dL (12.0-16.0) Hematocrit 39.7 % (37-47) Mean Corpuscular Volume 86.1 fL (80-100) Mean Corpuscular Hemoglobin 29.3 pg (25-34) Mean Corpuscular Hemoglobin Concent 34.0 g/dl (32-36) Platelet Count 310 K/uL (130-400) Mean Platelet Volume 9.5 fL (7.4-10.4) Neutrophils (%) (Auto) 76.2 % Lymphocytes (%) (Auto) 18.1 % Monocytes (%) (Auto) 3.8 % Eosinophils (%) (Auto) 1.3 % Basophils (%) (Auto) 0.4 % Neutrophils # (Auto) 7.98 K/uL (1.4-6.5) Lymphocytes # (Auto) 1.89 K/uL (1.2-3.4) Monocytes # (Auto) 0.40 K/uL (0.11-0.59) Eosinophils # (Auto) 0.14 K/uL (0-0.5) Basophils # (Auto) 0.04 K/uL (0-0.2) RDW Standard Deviation 46.4 fL (36.4-46.3) RDW Coefficient of Variation 14.8 % (11.5-14.5) Immature Granulocyte % (Auto) 0.2 % Immature Granulocyte # (Auto) 0.02 K/uL (0.00-0.02) Prothrombin Time 19.6 SECONDS (9.0-12.0) Prothromb Time International Ratio 1.8 (0.9-1.1) Activated Partial Thromboplast Time 32.7 SECONDS (21.0-31.0) Partial Thromboplastin Ratio 1.3 Anion Gap 13.0 mmol/L (3-11) Est Creatinine Clear Calc Drug Dose 65.1 ml/min Estimated GFR () 78.3 Estimated GFR (Non- 67.6 BUN/Creatinine Ratio 11.7 (10-20) Calcium Level 8.5 mg/dl (8.5-10.1) Total Bilirubin 0.1 mg/dl (0.2-1) Aspartate Amino Transf (AST/SGOT) 23 U/L (15-37) Alanine Aminotransferase (ALT/SGPT) 21 U/L (12-78) Alkaline Phosphatase 136 U/L (45-117) Total Creatine Kinase 70 U/L (26-192) Creatine Kinase MB 0.7 ng/ml (0.5-3.6) Creatine Kinase MB Ratio 1.0 (0-3.0) Troponin I < 0.015 ng/ml (0-0.045) Pro-B-Type Natriuretic Peptide 1777 pg/ml (0-900) Total Protein 7.5 gm/dl (6.4-8.2) Albumin 3.5 gm/dl (3.4-5.0) Globulin 4.0 gm/dl (2.5-4.0) Albumin/Globulin Ratio 0.9 (0.9-2) Chemistry Specimen Hemolysis Laboratory results as stated above per my review. ECG Indication: SOB/dyspnea Rate (beats per minute): 110 Rhythm: other (ventricular paced) Findings: no acute ischemic change, paced rhythm, no ectopy ED Course 1835: Previous medical records were reviewed. The patient was evaluated in room B12b. A complete history and physical examination was performed. 1950: Reassessed the patient. Discussed the workup with her. She verbalized understanding and agreement of the discharge instructions. The patient is ready for discharge. Medical Decision The differential that was considered includes acute myocardial infarction, acute coronary syndrome, myocarditis, pericarditis, pericardial effusions / tamponad, esophageal perforation, thoracic aortic dissection, pulmonary embolism , pneumonia, pneumothorax, pancreatitis, shingles, acute cholecystitis, perforated abdominal viscus. Medication Reconciliation: I attest that I have personally reviewed the patient' s current medication list. Blood pressure Screening: Patient was found to have normal blood pressure on screening and does not require follow-up. This is a 66-year-old female who presents to the ED with a chief complaint of shortness of breath for the past 6 days. She states that it comes and goes without worse today. She also reports exertional dyspnea. She reports that she has a history of congestive heart failure and feels that her symptoms are related to this. She denies any fevers or recent illness. Denies any nausea or vomiting. She has not seen black stool or blood in her stool. Her physical exam reveals some crackles in the bilateral bases. Exam was otherwise unremarkable. Heart rate was initially 120. Respiratory rate is 28. She appears to be tired but is in no significant respiratory distress. Her breathing does not appear to be labored. CBC was unremarkable. Chest x-ray did not show acute disease. The patient was reassessed. Her breathing is now better. Her heart rate is normal. The exact cause of her symptoms are unclear this time. She does have a history of congestive heart failure and an ejection fraction of 20%. This does not appear to be the case today. She is on Coumadin. She was advised to take an extra Coumadin tonight. She will contact her Coumadin clinic tomorrow. She will return for any concerns or worsening. Impression Primary Impression: Dyspnea on effort Scribe Attestation The scribe's documentation has been prepared under my direction and personally reviewed by me in its entirety. I confirm that the note above accurately reflects all work, treatment, procedures, and medical decision making performed by me. Departure Information Dispostion Home / Self-Care Referrals Adan Christopher M.D. (MEDICAL) (PCP) Forms IMPORTANT VISIT INFORMATION Patient Instructions My [facility] Additional Instructions Follow-up with your doctors for further evaluation of your symptoms. Take an extra Coumadin tonight. Call your Coumadin clinic tomorrow and let them know that your INR is 1.8. Return for any worsening or new concerns.
[2016-10-21 20:12] VITALS: BP 117/74; PULSE 77; O2SAT 97
[2016-11-14] MEDS ORDERED: LSN5 PO (10:22)
[2016-11-14] MEDS ORDERED: SPR25 PO ×2 (10:22→11:00)
[2016-11-14] MEDS ORDERED: ACET-749 PO (10:23)
[2016-11-14] MEDS ORDERED: DMD20 PO (11:00)
[2017-01-10] MEDS ORDERED: MCRK20 PO (15:54)
== END 2016-10-21 20:13 | disposition home or self-care (01) ==
LOC: C.EDB 18:15
DX: R06.00 Dyspnea, unspecified (principal); Z79.899 Other long term (current) drug therapy; Z87.442 Personal history of urinary calculi; I42.9 Cardiomyopathy, unspecified; Z95.810 Presence of automatic (implantable) cardiac defibrillator; M19.90 Unspecified osteoarthritis, unspecified site; E78.5 Hyperlipidemia, unspecified; E03.9 Hypothyroidism, unspecified; Z90.710 Acquired absence of both cervix and uterus; I50.20 Unspecified systolic (congestive) heart failure; Z96.643 Presence of artificial hip joint, bilateral; Z80.3 Family history of malignant neoplasm of breast; Z84.1 Family history of disorders of kidney and ureter; Z79.01 Long term (current) use of anticoagulants

== ENCOUNTER 2016-11-11 18:23 | Inpatient (IN) | payer OTHER ==
[~2016-11-11] VITALS: Ht 167.6 cm; Wt 74.2 kg
[~2016-11-11 18:23] MED LIST changes: +DMD20 PO; -METO100T44 PO; +METO1TAB69 PO; -OXYC-57 PO; +SPR25 PO; +[UNRECOGNIZED DRUG - CODE] PO
[2016-11-11] MEDS ORDERED: SODIUM CHLORIDE 0.9% 1000ML 1,000 ML IV STA (18:43)
[2016-11-11] MEDS ORDERED: LISI-729 PO (19:18)
--- NOTE | 2016-11-11 19:19 | DIAGNOSTIC IMAGING REPORT ---
CHEST ONE VIEW PORTABLE CLINICAL HISTORY: chest pain, sob, tachycardia COMPARISON STUDY: 10/21/2016 FINDINGS: The cardiac and mediastinal contours remain stable. There is a left-sided pacer/defibrillator present. There is no failure. There is no focal pulmonary consolidation. There is minor left basilar atelectasis. No pleural effusions are visualized. IMPRESSION: No active disease in the chest. Electronically signed by: Francisco Adam M.D. 11/11/2016 7:18 PM Dictated Date/Time: 11/11/2016 7:17 PM
[2016-11-11] MEDS ORDERED: METOPROLOL TARTRATE 1 MG/ML VIAL IV STA (19:38)
--- NOTE | 2016-11-11 19:41 | EMERGENCY ROOM VISIT NOTE ---
History Report prepared by Tyrese: Lena Louie Under the Supervision of: Dr. Alonso Zambrano M.D. First contact with patient: 18:37 Chief Complaint: CHEST PAIN Stated Complaint: CHEST PAIN SOB Nursing Triage Summary: Pt reports fall on Friday, "everything jolted and I have a defribillator, so they sent me to get checked. I am just so sick". Pt c/o pain across check, n/v blood in stool. History of Present Illness The patient is a 66 year old female who presents to the Emergency Room with complaints of persistent chest pain starting 3 days ago. The patient fell off her mattress 3 days ago. She fell onto her buttocks and felt a jolt when she landed. She has a pacemaker/defibrillator in place and was supposed to see her doctor today to see if it had gone off. She was feeling too sick to go. She reports SOB, nausea, and vomiting. She has had rectal bleeding which has worsened recently. She is lightheaded when standing up and paler than usual. She has a history of internal hemorrhoids. She denies any black stools or LOC. She is taking all her medications. She was on digoxin in the past, but taken off because she did not require it anymore. She is on Coumadin. Source of History: patient Onset: 3 days ago Position: chest Quality: other (pain) Timing: other (persistent) Associated Symptoms: + SOB, + nausea, + vomiting, No LOC, No melena Note: Pt reports rectal bleeding, lightheadedness, pale. Review of Systems See HPI for pertinent positives & negatives. A total of 10 systems reviewed and were otherwise negative. Past Medical & Surgical Medical Problems: (1) Calculus of kidney and ureter (2) Cardiomyopathy (3) Chronic osteoarthritis (4) Dyslipidemia (5) Hypokalemia (6) Hypothyroidism (7) Inguinal hernia (8) Left bundle branch block (9) left ventricular mural thrombus (10) Mitral valve regurgitation (11) Pulmonary hypertension (12) s/p arthroscopy/meniscectomy right knee (13) s/p cardiac catheterization (14) s/p colonoscopy (15) s/p EGD (16) s/p hysterectomy (17) s/p ORIF right humerus fracture (18) s/p pacemaker insertion (19) s/p placement AICD (20) s/p sinus surgery (21) s/p ROBYN left (22) s/p ROBYN right (23) Systolic heart failure (24) Ventricular fibrillation Family History FH: breast cancer SISTER FH: lung disease FATHER Social History Smoking Status: Never Smoker Alcohol Use: none Drug Use: none Marital Status: Housing Status: lives with family Occupation Status: other Current/Historical Medications Scheduled Alprazolam (Xanax), 1 MG PO QID Brimonidine Tartrate (Alphagan P Oph), 1 DROP OPB BID Home O2 Therapy (Oxygen), 2 LITERS NA HS&PRN Lisinopril (Zestril), 2.5 MG PO BID Metoprolol Succ (Toprol Xl) (Toprol-Xl ), 100 MG PO BID Pantoprazole (Protonix), 40 MG PO BID Spironolactone (Spironolactone), 25 MG PO QP Torsemide (Torsemide), 20 MG PO 5XD Travoprost (Travatan Z), 1 DROP OPB HS Warfarin Sod (Jantoven), 5 MG PO QPM Allergies Coded Allergies: Cefazolin (Verified Allergy, Severe, ANAPHYLAXIS, 11/11/16) Phenytoin (Verified Allergy, Intermediate, HIVES, 11/11/16) PER ROUTINE PREOP ORDERS [id number] Diphenhydramine (Verified Allergy, Mild, HAS OPPOSITE EFFECTS, 11/11/16) Zolpidem (Verified Allergy, Mild, HAS OPPOSITE EFFECTS, 11/11/16) Ciprofloxacin (Verified Allergy, Unknown, UNKNOWN, 11/11/16) Clindamycin (Verified Allergy, Unknown, UNKNOWN, 11/11/16) Fentanyl (Verified Allergy, Unknown, HAS OPPOSITE EFFECTS, 11/11/16) Ivabradine (Unverified Allergy, Unknown, RASH/DEPLETED POTASSIUM IN BOODY , 11/11/16) Tramadol (Verified Adverse Reaction, Intermediate, SEIZURE, 11/11/16) PER ROUTINE PRE-OP ORDERS [id number] Physical Exam Vital Signs Date Time Temp Pulse Resp B/P (MAP) Pulse Ox O2 Delivery O2 Flow Rate FiO2 11/11/16 22:01 113/73 11/11/16 21:43 94 15 96 11/11/16 21:31 114/71 11/11/16 21:28 116/65 7/10/17 21:13 95 13 94 11/11/16 21:01 116/65 11/11/16 20:55 127/77 11/11/16 20:43 89 18 96 11/11/16 20:13 91 13 96 11/11/16 20:08 90 13 94 11/11/16 19:56 103 112/75 11/11/16 19:53 106 18 96 11/11/16 19:38 113 18 95 11/11/16 19:37 112/75 11/11/16 19:34 116 11/11/16 18:33 96 Room Air 11/11/16 18:30 36.7 125 18 119/67 96 Room Air Physical Exam GENERAL: Patient is unwell appearing and in mild distress. HEENT: No acute trauma, normocephalic atraumatic, mucous membranes moist, no nasal congestion, pale conjunctiva, no scleral icterus. NECK: No stridor, no adenopathy, no meningismus, trachea is midline. LUNGS: No dyspnea. Clear to auscultation and equal bilaterally. No wheeze, no rhonchi. HEART: Tachycardic rate and regular rhythm. No murmurs, rubs, gallops appreciated. ABDOMEN: Soft, nontender, bowel sounds positive, no masses appreciated, no peritonitis. BACK: No midline tenderness, no CVA tenderness EXTREMITIES: Normal motion all extremities, no cyanosis, no edema. NEUROLOGIC: Alert and oriented, no acute motor or sensory deficits, no focal weakness, cranial nerves grossly intact. SKIN: No rash, no jaundice, no diaphoresis. Medical Decision & Procedures ER Provider Diagnostic Interpretation: X ray results are stated below per my interpretation and the radiologist's interpretation. CHEST ONE VIEW PORTABLE CLINICAL HISTORY: chest pain, sob, tachycardia COMPARISON STUDY: 10/21/2016 FINDINGS: The cardiac and mediastinal contours remain stable. There is a left-sided pacer/defibrillator present. There is no failure. There is no focal pulmonary consolidation. There is minor left basilar atelectasis. No pleural effusions are visualized. IMPRESSION: No active disease in the chest. Electronically signed by: Francisco Adam M.D. 11/11/2016 7:18 PM Dictated Date/Time: 11/11/2016 7:17 PM Laboratory Results 11/11/16 19:25 Red Blood Count 4.68, Mean Corpuscular Volume 82.9, Mean Corpuscular Hemoglobin 28.6, Mean Corpuscular Hemoglobin Concent 34.5, Mean Platelet Volume 9.6, Neutrophils (%) (Auto) 67.4, Lymphocytes (%) (Auto) 22.6, Monocytes (%) (Auto) 9.0, Eosinophils (%) (Auto) 0.6, Basophils (%) (Auto) 0.2, Neutrophils # (Auto) 5.99, Lymphocytes # (Auto) 2.01, Monocytes # (Auto) 0.80, Eosinophils # (Auto) 0.05, Basophils # (Auto) 0.02 11/11/16 19:25 Test 11/11/16 19:25 11/11/16 19:30 11/11/16 20:34 White Blood Count 8.89 K/uL (4.8-10.8) Red Blood Count 4.68 M/uL (4.2-5.4) Hemoglobin 13.4 g/dL (12.0-16.0) Hematocrit 38.8 % (37-47) Mean Corpuscular Volume 82.9 fL (80-100) Mean Corpuscular Hemoglobin 28.6 pg (25-34) Mean Corpuscular Hemoglobin Concent 34.5 g/dl (32-36) Platelet Count 295 K/uL (130-400) Mean Platelet Volume 9.6 fL (7.4-10.4) Neutrophils (%) (Auto) 67.4 % Lymphocytes (%) (Auto) 22.6 % Monocytes (%) (Auto) 9.0 % Eosinophils (%) (Auto) 0.6 % Basophils (%) (Auto) 0.2 % Neutrophils # (Auto) 5.99 K/uL (1.4-6.5) Lymphocytes # (Auto) 2.01 K/uL (1.2-3.4) Monocytes # (Auto) 0.80 K/uL (0.11-0.59) Eosinophils # (Auto) 0.05 K/uL (0-0.5) Basophils # (Auto) 0.02 K/uL (0-0.2) RDW Standard Deviation 43.4 fL (36.4-46.3) RDW Coefficient of Variation 14.3 % (11.5-14.5) Immature Granulocyte % (Auto) 0.2 % Immature Granulocyte # (Auto) 0.02 K/uL (0.00-0.02) Est Creatinine Clear Calc Drug Dose 57.8 ml/min Estimated GFR () 76.3 Estimated GFR (Non- 65.8 BUN/Creatinine Ratio 12.8 (10-20) Calcium Level 9.3 mg/dl (8.5-10.1) Magnesium Level 1.7 mg/dl (1.8-2.4) Troponin I < 0.015 ng/ml (0-0.045) Chemistry Specimen Hemolysis Bedside Hemoglobin 14.3 g/dl (12.0-16.0) Bedside Hematocrit 42 % (37-47) Bedside Sodium 136 mEq/L (135-144) Bedside Potassium 3.3 mEq/L (3.3-5.0) Bedside Chloride 95 mEq/L (101-112) Bedside Total CO2 31 mEq/l (24-31) Anion Gap 15.0 mmol/L (16-25) Bedside Blood Urea Nitrogen 13 mg/dl (7-18) Bedside Creatinine 0.8 mg/dl (0.6-1.3) Bedside Glucose (other) 99 mg/dl (70-99) Bedside Ionized Calcium (Renu) 1.02 mmol/l (1.12-1.32) Prothrombin Time 41.7 SECONDS (9.0-12.0) Prothromb Time International Ratio 3.7 (0.9-1.1) Activated Partial Thromboplast Time 39.9 SECONDS (21.0-31.0) Partial Thromboplastin Ratio 1.5 Laboratory results as reviewed by me. Medications Administered Medications (Trade) Dose Ordered Sig/[facility] Route Start Time Stop Time Status Last Admin Dose Admin Sodium Chloride 1,000 ml @ 999 mls/hr Q1H1M STAT IV 11/11/16 18:43 11/11/16 19:43 DC 11/11/16 18:43 999 MLS/HR Metoprolol Tartrate (Lopressor Iv) 5 mg NOW STAT IV 11/11/16 19:38 11/11/16 19:40 DC 11/11/16 19:56 5 MG Promethazine HCl 25 mg/Sodium Chloride 51 ml @ 204 mls/hr NOW STAT IV 11/11/16 19:44 11/11/16 19:58 DC 11/11/16 19:44 204 MLS/HR Magnesium Sulfate 1 gm/Prmx 100 ml @ 100 mls/hr Q1H IV 11/11/16 23:03 11/12/16 01:02 DC 11/12/16 00:33 100 MLS/HR ECG Indication: chest pain Rate (beats per minute): 131 Rhythm: sinus tachycardia Findings: LBBB, no acute ischemic change, no ectopy Change: Similar to morphology of previous sinus EKGs. Repeat EKG: atrial sensed ventricular paced, rate 111, no ectopy, no ischemia, similar to previous ventricular paced morphologies. ED Course 1836: The patient was evaluated in room B10. A complete history and physical exam was performed. 1842: NSS 1000 ml @ 999 mls/hr IV. 1937: Lopressor Iv 5 mg IV. 1938: I reevaluated the patient. She is stable. She now has an atrial sensed ventricular paced rhythm. Her hemoglobin is 14. 1943: Promethazine HCl 25 mg/Sodium Chloride 51 ml @ 204 mls/hr IV. 1954: I reevaluated the patient. She is starting to feel better. She notes that she might have hit her right lower ribs when she fell on Friday. 2054: Upon reevaluation, the patient is feeling much better and somewhat drowsy. She has no further chest pain. I discussed results and treatment plan with the patient. She verbalized understanding and agreement with the treatment plan. The patient will be evaluated for further management. 2057: I discussed the patient's case with Dr. Phipps, [facility] hospitalist. The patient will be evaluated for further management. Medical Decision Differential: Cardiac Ischemia (STEMI, NSTEMI, Unstable Angina, etc), Aortic Dissection, Arrhythmia, Pulmonary Embolism, Pneumonia, Pneumothorax, MSK, Infectious, Pericarditis/Myocarditis, Esophageal Rupture, Gastrointestinal, amongst other pathologies entertained. Medication Reconciliation: I attest that I have personally reviewed the patient 's current medication list. Blood pressure screening: Patient was found to have normal blood pressure on screening and does not require follow-up. 66 yr old female arrives with complaint of weakness, nausea, dizzy and chest pain. Weak and feel 3 days ago with right rib pain since though this afternoon worsening substernal CP. She is on coumadin already. No evidence of hemothorax on CXR and otherwise clear. No abdominal TTP nor evidence intraabdominal hemorrhage. Trop initial negative. CP resolved with fluids, metoprolol and HR under control. Suspect this was CP from demand Tachycardia. Unclear cause of tachy, she has history of tachycardia for which she is on metoprolol and regularly has HR that is mildly elevated though 130s is clearly a bit high for her. Labs otherwise not significantly off. I suspect she does have right rib contusion vs fracture that is causing pain. With stability and exam will hold on CT imaging at this time. Will need cardiac rule out given her complex history. Consults Time Called: 2034 Consulting Physician: Dr. Phipps [facility] hospitalist Returned Call: [phone] I discussed the patient's case with him. The patient will be evaluated for further management. Impression Primary Impression: Chest pain Additional Impression: Tachycardia Scribe Attestation The scribe's documentation has been prepared under my direction and personally reviewed by me in its entirety. I confirm that the note above accurately reflects all work, treatment, procedures, and medical decision making performed by me. Departure Information Dispostion Being Evaluated By Hospitalist Referrals Adan Christopher M.D. (MEDICAL) (PCP) Patient Instructions My [facility] Problem Qualifiers
[2016-11-11 19:42] LABS: ISTAT CREATININE 0.8 mg/dl (0.6-1.3); ISTAT HEMOGLOBIN 14.3 g/dl (12.0-16.0); ISTAT IONIZED CALCIUM 1.02 mmol/l (1.12-1.32)
[2016-11-11 19:44] LABS: BASO % 0.2 %; BASO ABS # 0.02 K/uL (0-0.2); COMPLETE YES; EOS % 0.6 %; HEMATOCRIT 38.8 % (37-47); IG% 0.2 %; LYMPH % 22.6 %; LYMPH ABS # 2.01 K/uL (1.2-3.4); MEAN CELL VOLUME 82.9 fL (80-100); MEAN CORPUSCULAR HEMOGLOBIN 28.6 pg (25-34); MEAN CORPUSCULAR HGB CONC 34.5 g/dl (32-36); MEAN PLATELET VOLUME 9.6 fL (7.4-10.4); NEUT % 67.4 %; PLATELET COUNT 295 K/uL (130-400); RED BLOOD COUNT 4.68 M/uL (4.2-5.4); WHITE BLOOD COUNT 8.89 K/uL (4.8-10.8)
[2016-11-11] MEDS ORDERED: PROMETHAZINE HCL INJ 25 MG in SODIUM CHLORIDE 0.9% 50ML 50 ML IV STA (19:44)
[2016-11-11 20:06] LABS: BLOOD UREA NITROGEN 12 mg/dl (7-18); BUN/CREATININE RATIO 12.8 (10-20); CALCIUM 9.3 mg/dl (8.5-10.1); CARBON DIOXIDE 28 mmol/L (21-32); CHLORIDE 97 mmol/L (98-107); CREATININE 0.92 mg/dl (0.60-1.20); GLUCOSE 94 mg/dl (70-99); MAGNESIUM 1.7 mg/dl (1.8-2.4); POTASSIUM 2.8 mmol/L (3.5-5.1); SODIUM 136 mmol/L (136-145)
[2016-11-11 21:08] LABS: INR 3.7 (0.9-1.1); PARTIAL THROMBOPLASTIN RATIO 1.5; PROTHROMBIN TIME (PATIENT) 41.7 SECONDS (9.0-12.0)
[2016-11-11] MEDS ORDERED: POLYETHYLENE (MIRALAX) 17 GM PACK PO PRN (23:15)
[2016-11-11] MEDS ORDERED: ENOXAPARIN 40 MG/0.4 ML SYR SC SCH (23:15)
[2016-11-11] MEDS ORDERED: ONDANSETRON INJ 2 MG/ML 2 ML VIAL IV PRN (23:15)
[2016-11-11] MEDS ORDERED: ALUMINUM/MAGNESIUM/SIMETH (MAALOX MAX) 30 ML UDC PO PRN (23:15)
[2016-11-11] MEDS ORDERED: MAGNESIUM HYDROXIDE SUSP 30 ML UDC PO PRN (23:15)
[2016-11-11] MEDS ORDERED: NITROGLYCERIN 0.4 MG SL PER TAB CHARGE SL PRN (23:15)
[2016-11-11] MEDS: MAGNESIUM SULFATE 1GM / D5W 1 GM in PREMIXED IN D5W 100 ML IV SCH (23:31)
[2016-11-12] VITALS (10 sets, daily range): BP systolic 84–113; BP diastolic 57–76; PULSE 85–126; TEMP 36.6–37.1; O2SAT 94–98; Ht 167.6 cm; Wt 74.2 kg
[2016-11-12] MEDS: MAGNESIUM SULFATE 1GM / D5W 1 GM in PREMIXED IN D5W 100 ML IV SCH (00:33)
[2016-11-12] MEDS ORDERED: MoRPHine SULFATE 2 MG/ML CARP IV STA (00:43)
[2016-11-12] MEDS ORDERED: ALPRAZOLAM 0.5 MG TAB PO STA (01:05)
--- NOTE | 2016-11-12 03:51 | History and Physical ---
History & Physical Date & Time of Service: Nov 12, 2016 at 03:26 Chief Complaint: Chest Pain, Tachycardia Primary Care Physician: Adan Christopher M.D. (MEDICAL) History of Present Illness Source: patient, clinic records, hospital records This is a 66 year old female with PMH of idiopathic cardiomyopathy and systolic CHF with EF ~ 20% s/p AICD, hx. of V-fib, Hx. of A-flutter on Coumadin presents to the ER after a fall on November 08. She states that her doses of Aldactone and torsemide have been increased recently. She has been having to urinate more often; states that on Friday, she was trying to get up at night to go to the bathroom and on her way to get up she fell and hit her back/R side. She developed R back pain. She thought nothing of it; but then developed substernal chest pain. States it was worse with movement. She denies shortness of breath/palpitations. Upon presentation, she was noted to have tachycardia. Chest pain improved. She is resting comfortably now. Past Medical/Surgical History Medical Problems: (1) Calculus of kidney and ureter Status: Resolved (2) Cardiomyopathy Permanent Comment: idiopathic echo 02/10/11 [facility] global hypokinesis, LVEF 20-25%, mural thrombus Status: Chronic (3) Chronic osteoarthritis Status: Chronic (4) Dyslipidemia Status: Chronic (5) Hypothyroidism Status: Chronic (6) Left bundle branch block Status: Chronic (7) left ventricular mural thrombus Permanent Comment: noted on echo 02/10/11 Status: Chronic (8) Mitral valve regurgitation Status: Chronic (9) Pulmonary hypertension Status: Chronic (10) s/p arthroscopy/meniscectomy right knee Permanent Comment: 2003 Status: Resolved (11) s/p cardiac catheterization Permanent Comment: 09/21/09 normal coronaries Status: Resolved (12) s/p colonoscopy Permanent Comment: 2008 internal hemorrhoids Status: Resolved (13) s/p EGD Permanent Comment: 03/22/11 [facility] gastritis Status: Resolved (14) s/p hysterectomy Status: Resolved (15) s/p ORIF right humerus fracture Status: Resolved (16) s/p pacemaker insertion Permanent Comment: 03/26/10 Dr. Wallace [facility] [place] Status: Resolved (17) s/p placement AICD Status: Resolved (18) s/p sinus surgery Status: Resolved (19) s/p ROBYN left Permanent Comment: 08/14/11 Dr. Butcher [facility] Status: Resolved (20) s/p ROBYN right Permanent Comment: 05/09/11 Dr. Butcher [facility] Status: Resolved (21) Systolic heart failure Permanent Comment: LVEF 20-25% by echo 2010 Status: Chronic Family History FH: breast cancer SISTER FH: lung disease FATHER Social History Smoking Status: Never Smoker Drug Use: none Marital Status: Housing status: lives with family Occupational Status: other Immunizations History of Influenza Vaccine: No History of Tetanus Vaccine?: Yes Tetanus Immunization Date: Mar 21, 2005 History of Pneumococcal: Yes Pneumococcal Date: May 09, 2009 History of Hepatitis B Vaccine: Yes Multi-Drug Resistant Organisms History of MDRO: No Allergies Coded Allergies: Cefazolin (Verified Allergy, Severe, ANAPHYLAXIS, 11/11/16) Phenytoin (Verified Allergy, Intermediate, HIVES, 11/11/16) PER ROUTINE PREOP ORDERS [id number] Diphenhydramine (Verified Allergy, Mild, HAS OPPOSITE EFFECTS, 11/11/16) Zolpidem (Verified Allergy, Mild, HAS OPPOSITE EFFECTS, 11/11/16) Ciprofloxacin (Verified Allergy, Unknown, UNKNOWN, 11/11/16) Clindamycin (Verified Allergy, Unknown, UNKNOWN, 11/11/16) Fentanyl (Verified Allergy, Unknown, HAS OPPOSITE EFFECTS, 11/11/16) Ivabradine (Unverified Allergy, Unknown, RASH/DEPLETED POTASSIUM IN BOODY , 11/11/16) Tramadol (Verified Adverse Reaction, Intermediate, SEIZURE, 11/11/16) PER ROUTINE PRE-OP ORDERS [id number] Home Medications Scheduled Alprazolam (Xanax), 1 MG PO QID Brimonidine Tartrate (Alphagan P Oph), 1 DROP OPB BID Home O2 Therapy (Oxygen), 2 LITERS NA HS&PRN Lisinopril (Zestril), 2.5 MG PO BID Metoprolol Succ (Toprol Xl) (Toprol-Xl ), 100 MG PO BID Pantoprazole (Protonix), 40 MG PO BID Spironolactone (Spironolactone), 25 MG PO QP Torsemide (Torsemide), 20 MG PO 5XD Travoprost (Travatan Z), 1 DROP OPB HS Warfarin Sod (Jantoven), 5 MG PO QPM Review of Systems Constitutional: + weakness, No fever, No chills, No sweats, No fatigue Respiratory: No cough, No sputum, No shortness of breath, No dyspnea on exertion, No dyspnea at rest, No hemoptysis Cardiovascular: + chest pain, No orthopnea, No edema, No palpitations Abdomen: No pain, No nausea, No vomiting, No diarrhea, No constipation Musculoskeletal: No joint pain, No muscle pain Genitourinary - Female: No dysuria, No urinary frequency, No urinary urgency, No urinary incontinence, No urinary retention, No hematuria Psychiatric: No depression symptoms Hematologic / Lymphatic: No abnormal bleeding/bruising Integumentary: No rash Allergic / Immunologic: No environmental allergies, No seasonal allergies Physical Exam Vital Signs Date Time Temp Pulse Resp B/P (MAP) Pulse Ox O2 Delivery O2 Flow Rate FiO2 11/12/16 00:16 36.7 98 18 113/76 94 Room Air 11/11/16 23:19 97 20 104/65 94 Room Air 11/11/16 22:01 113/73 11/11/16 21:43 94 15 96 11/11/16 21:31 114/71 11/11/16 21:28 116/65 11/11/16 21:13 95 13 94 11/11/16 21:01 116/65 11/11/16 20:55 127/77 11/11/16 20:43 89 18 96 11/11/16 20:13 91 13 96 11/11/16 20:08 90 13 94 11/11/16 19:56 103 112/75 11/11/16 19:53 106 18 96 11/11/16 19:38 113 18 95 11/11/16 19:37 112/75 11/11/16 19:34 116 11/11/16 18:33 96 Room Air 11/11/16 18:30 36.7 125 18 119/67 96 Room Air General Appearance: no apparent distress Head: normocephalic, atraumatic Eyes: normal inspection Respiratory/Chest: lungs clear, normal breath sounds, no respiratory distress, no accessory muscle use, + pertinent finding (chest wall tenderness; R back pain to palpation) Cardiovascular: no edema, no murmur, + tachycardia Abdomen/GI: normal bowel sounds, non tender, soft Extremities/Musculoskelatal: no calf tenderness, normal capillary refill, no pedal edema Neurologic/Psych: no motor/sensory deficits, alert, normal mood/affect Diagnostics Laboratory Results Results Past 24 Hours Test 11/11/16 19:25 11/11/16 19:30 11/11/16 20:34 Range/Units White Blood Count 8.89 4.8-10.8 K/uL Red Blood Count 4.68 4.2-5.4 M/uL Hemoglobin 13.4 12.0-16.0 g/dL Hematocrit 38.8 37-47 % Mean Corpuscular Volume 82.9 80-100 fL Mean Corpuscular Hemoglobin 28.6 25-34 pg Mean Corpuscular Hemoglobin Concent 34.5 32-36 g/dl Platelet Count 295 130-400 K/uL Mean Platelet Volume 9.6 7.4-10.4 fL Neutrophils (%) (Auto) 67.4 % Lymphocytes (%) (Auto) 22.6 % Monocytes (%) (Auto) 9.0 % Eosinophils (%) (Auto) 0.6 % Basophils (%) (Auto) 0.2 % Neutrophils # (Auto) 5.99 1.4-6.5 K/uL Lymphocytes # (Auto) 2.01 1.2-3.4 K/uL Monocytes # (Auto) 0.80 0.11-0.59 K/uL Eosinophils # (Auto) 0.05 0-0.5 K/uL Basophils # (Auto) 0.02 0-0.2 K/uL RDW Standard Deviation 43.4 36.4-46.3 fL RDW Coefficient of Variation 14.3 11.5-14.5 % Immature Granulocyte % (Auto) 0.2 % Immature Granulocyte # (Auto) 0.02 0.00-0.02 K/uL Sodium Level 136 136-145 mmol/L Potassium Level 2.8 3.5-5.1 mmol/L Chloride Level 97 98-107 mmol/L Carbon Dioxide Level 28 21-32 mmol/L Anion Gap 11.0 15.0 16-25 mmol/L Blood Urea Nitrogen 12 7-18 mg/dl Creatinine 0.92 0.60-1.20 mg/dl Est Creatinine Clear Calc Drug Dose 57.8 ml/min Estimated GFR () 76.3 Estimated GFR (Non- 65.8 BUN/Creatinine Ratio 12.8 10-20 Random Glucose 94 70-99 mg/dl Calcium Level 9.3 8.5-10.1 mg/dl Magnesium Level 1.7 1.8-2.4 mg/dl Troponin I < 0.015 0-0.045 ng/ml Chemistry Specimen Hemolysis Bedside Hemoglobin 14.3 12.0-16.0 g/dl Bedside Hematocrit 42 37-47 % Bedside Sodium 136 135-144 mEq/L Bedside Potassium 3.3 3.3-5.0 mEq/L Bedside Chloride 95 101-112 mEq/L Bedside Total CO2 31 24-31 mEq/l Bedside Blood Urea Nitrogen 13 7-18 mg/dl Bedside Creatinine 0.8 0.6-1.3 mg/dl Bedside Glucose (other) 99 70-99 mg/dl Bedside Ionized Calcium (Renu) 1.02 1.12-1.32 mmol/l Prothrombin Time 41.7 9.0-12.0 SECONDS Prothromb Time International Ratio 3.7 0.9-1.1 Activated Partial Thromboplast Time 39.9 21.0-31.0 SECONDS Partial Thromboplastin Ratio 1.5 Diagnostic Radiology CHEST ONE VIEW PORTABLE CLINICAL HISTORY: chest pain, sob, tachycardia COMPARISON STUDY: 10/21/2016 FINDINGS: The cardiac and mediastinal contours remain stable. There is a left-sided pacer/defibrillator present. There is no failure. There is no focal pulmonary consolidation. There is minor left basilar atelectasis. No pleural effusions are visualized. IMPRESSION: No active disease in the chest. EKG Atrial-sensed ventricular-paced rhythm Abnormal ECG When compared with ECG of 11-NOV-2016 18:29, (unconfirmed) Electronic ventricular pacemaker has replaced Sinus rhythm Impression Assessment and Plan This is a 66 year old female with PMH of idiopathic cardiomyopathy and systolic CHF with EF ~ 20% s/p AICD, hx. of V-fib, Hx. of A-flutter on Coumadin presents to the ER after a fall and subsequently developed chest pain Chest Pain r/o ACS patient presented with chest pain likely chest wall tenderness initial set of cardiac enzymes negative will trend enzymes recheck EKG in AM to compare get an updated echo consulted cardiology S/P Fall, likely Mechanical Fall possibly orthostatic due to increase in diuretics recently monitor in tele orthostatic vitals Idiopathic Cardiomyopathy systolic CHF with EF ~ 20% s/p AICD dose of diuretics have increased recently for now, continue Torsemide BID, Aldactone BID Tachycardia for now, continue Toprol monitor in tele for now cardiology consultation for further dose adjustment Hx. of A. Flutter continue b-carola hold Coumadin, INR > 3 DVT ppx Coumadin FULL CODE Advanced Directives Existing Living Will: No Existing Power of Wood Cabinetmaker: No VTE Prophylaxis VTE Risk Assessment Done? Y/N: Yes Risk Level: Moderate
[2016-11-12] MEDS ORDERED: IV FLUIDS COMPLETED PRN ×2 (05:00→08:15)
[2016-11-12 06:18] LABS: HEMATOCRIT 35.1 % (37-47); MEAN CELL VOLUME 83.2 fL (80-100); MEAN CORPUSCULAR HEMOGLOBIN 27.3 pg (25-34); MEAN CORPUSCULAR HGB CONC 32.8 g/dl (32-36); MEAN PLATELET VOLUME 8.8 fL (7.4-10.4); PLATELET COUNT 251 K/uL (130-400); RED BLOOD COUNT 4.22 M/uL (4.2-5.4)
[2016-11-12 06:35] LABS: INR 3.1 (0.9-1.1); PROTHROMBIN TIME (PATIENT) 34.5 SECONDS (9.0-12.0)
[2016-11-12 06:55] LABS: BLOOD UREA NITROGEN 12 mg/dl (7-18); BUN/CREATININE RATIO 17.6 (10-20); CALCIUM 8.4 mg/dl (8.5-10.1); CARBON DIOXIDE 30 mmol/L (21-32); CHLORIDE 104 mmol/L (98-107); CREATININE 0.68 mg/dl (0.60-1.20); GLUCOSE 91 mg/dl (70-99); MAGNESIUM 2.5 mg/dl (1.8-2.4); POTASSIUM 2.5 mmol/L (3.5-5.1); SODIUM 140 mmol/L (136-145)
[2016-11-12] MEDS ORDERED: POTASSIUM CHLR 10 MEQ / WTR 10 MEQ in PREMIXED WATER 100 ML IV SCH (08:00)
[2016-11-12] MEDS: PANTOprazole SOD 40 MG TAB PO SCH ×2 (08:06→20:28)
[2016-11-12] MEDS: ASPIRIN 81 MG ECTAB PO SCH (08:06)
[2016-11-12] MEDS: ALPRAZOLAM 0.5 MG TAB PO SCH ×4 (08:09→23:34)
[2016-11-12] MEDS ORDERED: TORSEMIDE 20 MG TAB PO SCH (09:00)
[2016-11-12] MEDS ORDERED: LISINOPRIL 5 MG TAB PO SCH (09:00)
[2016-11-12] MEDS: SPIRONOLACTONE 25 MG TAB PO SCH ×2 (09:35→16:21)
[2016-11-12] MEDS: METOPROLOL SUCC 50MG EXT REL TAB PO SCH ×2 (09:35→20:28)
[2016-11-12] MEDS ORDERED: POTASSIUM CHLORIDE 20 MEQ TABCR PO ONE (10:30)
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
[2016-11-12] MEDS: PROMETHAZINE HCL INJ 12.5 MG in SODIUM CHLORIDE 0.9% 50ML 50 ML IV PRN (13:32)
[2016-11-12 14:04] LABS: BLOOD UREA NITROGEN 12 mg/dl (7-18); BUN/CREATININE RATIO 12.3 (10-20); CALCIUM 9.1 mg/dl (8.5-10.1); CARBON DIOXIDE 29 mmol/L (21-32); CHLORIDE 102 mmol/L (98-107); CREATININE 0.94 mg/dl (0.60-1.20); GLUCOSE 73 mg/dl (70-99); POTASSIUM 3.7 mmol/L (3.5-5.1); SODIUM 139 mmol/L (136-145)
[2016-11-12 14:24] LABS: CKMB/CK RATIO 1.3 (0-3.0)
--- NOTE | 2016-11-12 14:55 | ECHOCARDIOGRAM REPORT ---
*NOTICE TO RECEIVING CONSTITUTION PARTY AGENCY This information is strictly Confidential and protected under [place] law. [place] law prohibits you from making any further disclosure of this information unless further disclosure is expressly permitted by the written consent of the person to whom it pertains or is authorized by law. A general authorization for the release of medical or other information is not sufficient for this purpose. Hospital accepts no responsibility if the information is made available to any other person, INCLUDING THE PATIENT. Interpretation Summary * Name: DIANA STEIN Study Date: 11/12/2016 06:54 AM BP: 84/66 mmHg * Patient Location: C.2T\S\S233\S\1 HR: 98 * : 1950 (M/d/yyyy) Gender: Female Height: 66 in * Age: 66 yrs Ethnicity: CA Weight: 156 lb * Ordering Physician: Ronald Phipps * Referring Physician: Shaun Paulino PA-C * Performed By: Marva Puri RCS * * Reason For Study: CHEST PAIN * BSA: 1.8 m2 * -- Conclusions -- * There is global thinning of the left ventricular esparza. * The left ventricle is severely dilated. * There is severe global hypokinesis of the left ventricle. * Left ventricular systolic function is severely reduced. * The qualitative left ventricular ejection fraction is < 20% * There is moderate to severe mitral regurgitation. * The etiology of the metral regurtitation is secondary mitral regurgitation from left ventricular chamber dilatation with resultant leaflet motion in systole (Maeve functional classification Type IIIb ). * There is moderate tricuspid regurgitation. * Doppler findings do not suggest pulmonary hypertension. * Diastolic dysfunction, Grade III (restrictive pattern), consistent with markedly increased left atrial pressure. * The inferior vena cava diameter is collapsed at baseline, consistent with low right atrial pressure and low central venous pressure. * Compared to the prior study dated 10/01/13 , the LV systolic function is relatively unchanged. Procedure Details * A complete two-dimensional transthoracic echocardiogram was performed (2D, M-mode, Doppler and color flow Doppler). Left Ventricle * The left ventricle is severely dilated. * There is global thinning of the left ventricular esparza. * Left ventricular systolic function is severely reduced. * The qualitative left ventricular ejection fraction is < 20% * There is severe global hypokinesis of the left ventricle. Right Ventricle * The right ventricle is normal size. * The right ventricular systolic function is normal as assessed by tricuspid annular plane systolic excursion (TAPSE) (normal >1.5 cm). Atria * The left atrium is moderately dilated. * Right atrial size is normal. * An AICD lead is noted in the right atrium. * There is no evidence of atrial septal defect, but resolution does not allow assessment for a patent foramen ovale. Mitral Valve * The mitral valve is normal. * There is no mitral valve stenosis. * There is moderate to severe mitral regurgitation. Tricuspid Valve * The tricuspid valve is normal. * There is no tricuspid stenosis. * There is moderate tricuspid regurgitation. * Doppler findings do not suggest pulmonary hypertension. Aortic Valve * The aortic valve is trileaflet. * Aortic stenosis is absent. * There is no significant aortic regurgitation. Pulmonic Valve * The pulmonary valve is not well seen, but the Doppler examination is normal without significant regurgitation or stenosis. Great Vessels * The aortic root and proximal ascending aorta are normal sized. Pericardium/Pleural * There is no pericardial effusion. Right Ventricle * An AICD lead is noted in the right ventricle. Great Vessels * The inferior vena cava diameter is collapsed at baseline, consistent with low right atrial pressure and low central venous pressure. Left Ventricular Diastolic Function * Diastolic dysfunction, Grade III (restrictive pattern), consistent with markedly increased left atrial pressure. MMode 2D Measurements and Calculations IVSd 1.2 cm IVSs 1.3 cm LVIDd 6.5 cm LVIDs 5.8 cm LVPWd 1.2 cm LVPWs 1.3 cm IVS/LVPW 1.0 FS 10.4 % EDV(Teich) 213.3 ml ESV(Teich) 165.9 ml EF(Teich) 22.2 % EDV(cubed) 270.1 ml ESV(cubed) 194.1 ml EF(cubed) 28.1 % % IVS thick 4.2 % % LVPW thick 12.0 % LV mass(C)d 351.8 grams LV mass(C)dI 195.5 grams/m\S\2 LV mass(C)s 325.7 grams LV mass(C)sI 181.0 grams/m\S\2 SV(Teich) 47.4 ml SI(Teich) 26.3 ml/m\S\2 SV(cubed) 75.9 ml SI(cubed) 42.2 ml/m\S\2 Ao root diam 2.7 cm Ao root area 5.6 cm\S\2 ACS 1.6 cm LA dimension 3.5 cm LA/Ao 1.3 LVOT diam 1.9 cm LVOT area 3.0 cm\S\2 LVAd ap4 50.7 cm\S\2 LVLd ap4 8.0 cm EDV(MOD-sp4) 262.0 ml EDV(sp4-el) 272.5 ml LVAs ap4 44.7 cm\S\2 LVLs ap4 8.0 cm ESV(MOD-sp4) 202.5 ml ESV(sp4-el) 211.5 ml EF(MOD-sp4) 22.7 % EF(sp4-el) 22.4 % LVAd ap2 53.3 cm\S\2 LVLd ap2 8.5 cm EDV(MOD-sp2) 279.6 ml EDV(sp2-el) 283.8 ml LVAs ap2 46.7 cm\S\2 LVLs ap2 8.3 cm ESV(MOD-sp2) 211.8 ml ESV(sp2-el) 223.9 ml EF(MOD-sp2) 24.2 % EF(sp2-el) 21.1 % LVLd %diff 5.8 % EDV(MOD-bp) 279.9 ml LVLs %diff 2.9 % ESV(MOD-bp) 211.9 ml EF(MOD-bp) 24.3 % SV(MOD-sp4) 59.5 ml SI(MOD-sp4) 33.1 ml/m\S\2 SV(MOD-sp2) 67.8 ml SI(MOD-sp2) 37.7 ml/m\S\2 SV(MOD-bp) 68.0 ml SI(MOD-bp) 37.8 ml/m\S\2 SV(sp4-el) 61.0 ml SI(sp4-el) 33.9 ml/m\S\2 SV(sp2-el) 59.9 ml SI(sp2-el) 33.3 ml/m\S\2 Doppler Measurements and Calculations MV E max zamzam 152.6 cm/sec MV P1/2t max zamzam 141.2 cm/sec MV P1/2t 67.6 msec MVA(P1/2t) 3.3 cm\S\2 MV dec slope 612.3 cm/sec\S\2 MV dec time 0.13 sec Ao V2 max 131.8 cm/sec Ao max PG 7.0 mmHg Ao max PG (full) 0.89 mmHg MARYLIN(V,A) 2.8 cm\S\2 MARYLIN(V,D) 2.8 cm\S\2 LV V1 max PG 6.1 mmHg LV V1 max 123.1 cm/sec MR max zamzam 504.8 cm/sec MR max PG 101.9 mmHg TR max zamzam 279.0 cm/sec
[2016-11-12] MEDS ORDERED: WARFARIN SOD 5 MG TAB PO SCH (16:00)
--- NOTE | 2016-11-12 18:56 | Progress Note ---
Internal Med Progress Note Date of Service: Nov 12, 2016. Provider Documentation: SUBJECTIVE: minimum SOB , chest pain has improved OBJECTIVE: Vital Signs-as noted below Exam: General-no sign of distress Eyes-sclera non icteric ENT-NAD Neck-no JVD Lungs-CTA Heart-regular Abdomen-soft, non tender Extremities-no lower ext edema Neuro-AAO x3, no focal deficit Lab data as noted below. ASSESSMENT & PLAN: Chest Pain/ no cardiac : likely chest wall tenderness cardiac enzymes negative appreciate cardiology eval Chronic CHF with severe non ischemic cardiomyopathy : status post BiV-ICD implantation Volume status is currently mildly hypovolemic. diuretics on hold for low ECHO : Transthoracic echocardiogram performed today and reviewed independently by the undersigned: Severe left ventricular chamber dilatation, left ventricular end-diastolic dimension was 6.5 cm. Severe global left ventricular hypokinesis with severely reduced ejection fraction, less than 20%. Moderate to severe mitral regurgitation secondary to left ventricular chamber dilatation and tethering of the mitral valve apparatus. Marked hypokalemia due to diuresis replaced cont to monitor K and Mg level S/P Fall, likely Mechanical Fall no complain of dizzy spell or lightheadedness at present possibly orthostatic due to increase in diuretics recently monitor in tele orthostatic vitals Idiopathic Cardiomyopathy systolic CHF with EF ~ 20% s/p AICD dose of diuretics have increased recently Torsemide BID, Aldactone BID has been kept on hold Hx. of A. Flutter continue b-carola hold Coumadin, INR > 3 DVT ppx Coumadin DISPOSITION to home when medically stable Vital Signs: Date Time Temp Pulse Resp B/P (MAP) Pulse Ox O2 Delivery O2 Flow Rate FiO2 11/12/16 16:00 Room Air 11/12/16 15:33 37.1 98 22 97/66 (76) 94 Room Air 11/12/16 12:00 Room Air 11/12/16 11:50 36.7 90 18 103/69 (80) 95 11/12/16 08:00 Room Air 11/12/16 07:50 126 84/66 (72) 11/12/16 07:49 109 100/70 (80) 11/12/16 07:48 106 106/73 (84) 11/12/16 07:27 36.9 104 18 103/70 (81) 95 11/12/16 04:00 Room Air 11/12/16 03:53 36.6 119 20 112/62 (79) 98 Room Air 11/12/16 00:16 36.7 98 18 113/76 94 Room Air 11/11/16 23:19 97 20 104/65 94 Room Air 11/11/16 22:01 113/73 11/11/16 21:43 94 15 96 11/11/16 21:31 114/71 11/11/16 21:28 116/65 11/11/16 21:13 95 13 94 11/11/16 21:01 116/65 11/11/16 20:55 127/77 11/11/16 20:43 89 18 96 11/11/16 20:13 91 13 96 11/11/16 20:08 90 13 94 11/11/16 19:56 103 112/75 11/11/16 19:53 106 18 96 11/11/16 19:38 113 18 95 11/11/16 19:37 112/75 11/11/16 19:34 116 Lab Results: Results Past 24 Hours Test 11/11/16 19:25 11/11/16 19:30 11/11/16 20:34 11/12/16 06:01 Range/Units White Blood Count 8.89 6.60 4.8-10.8 K/uL Red Blood Count 4.68 4.22 4.2-5.4 M/uL Hemoglobin 13.4 11.5 12.0-16.0 g/dL Hematocrit 38.8 35.1 37-47 % Mean Corpuscular Volume 82.9 83.2 80-100 fL Mean Corpuscular Hemoglobin 28.6 27.3 25-34 pg Mean Corpuscular Hemoglobin Concent 34.5 32.8 32-36 g/dl Platelet Count 295 251 130-400 K/uL Mean Platelet Volume 9.6 8.8 7.4-10.4 fL Neutrophils (%) (Auto) 67.4 % Lymphocytes (%) (Auto) 22.6 % Monocytes (%) (Auto) 9.0 % Eosinophils (%) (Auto) 0.6 % Basophils (%) (Auto) 0.2 % Neutrophils # (Auto) 5.99 1.4-6.5 K/uL Lymphocytes # (Auto) 2.01 1.2-3.4 K/uL Monocytes # (Auto) 0.80 0.11-0.59 K/uL Eosinophils # (Auto) 0.05 0-0.5 K/uL Basophils # (Auto) 0.02 0-0.2 K/uL RDW Standard Deviation 43.4 43.6 36.4-46.3 fL RDW Coefficient of Variation 14.3 14.3 11.5-14.5 % Immature Granulocyte % (Auto) 0.2 % Immature Granulocyte # (Auto) 0.02 0.00-0.02 K/uL Sodium Level 136 140 136-145 mmol/L Potassium Level 2.8 2.5 3.5-5.1 mmol/L Chloride Level 97 104 98-107 mmol/L Carbon Dioxide Level 28 30 21-32 mmol/L Anion Gap 11.0 15.0 6.0 3-11 mmol/L Blood Urea Nitrogen 12 12 7-18 mg/dl Creatinine 0.92 0.68 0.60-1.20 mg/dl Est Creatinine Clear Calc Drug Dose 57.8 84.8 ml/min Estimated GFR () 76.3 107.1 Estimated GFR (Non- 65.8 92.4 BUN/Creatinine Ratio 12.8 17.6 10-20 Random Glucose 94 91 70-99 mg/dl Calcium Level 9.3 8.4 8.5-10.1 mg/dl Magnesium Level 1.7 2.5 1.8-2.4 mg/dl Troponin I < 0.015 0.020 0-0.045 ng/ml Chemistry Specimen Hemolysis Bedside Hemoglobin 14.3 12.0-16.0 g/dl Bedside Hematocrit 42 37-47 % Bedside Sodium 136 135-144 mEq/L Bedside Potassium 3.3 3.3-5.0 mEq/L Bedside Chloride 95 101-112 mEq/L Bedside Total CO2 31 24-31 mEq/l Bedside Blood Urea Nitrogen 13 7-18 mg/dl Bedside Creatinine 0.8 0.6-1.3 mg/dl Bedside Glucose (other) 99 70-99 mg/dl Bedside Ionized Calcium (Renu) 1.02 1.12-1.32 mmol/l Prothrombin Time 41.7 34.5 9.0-12.0 SECONDS Prothromb Time International Ratio 3.7 3.1 0.9-1.1 Activated Partial Thromboplast Time 39.9 21.0-31.0 SECONDS Partial Thromboplastin Ratio 1.5 Total Creatine Kinase 36 26-192 U/L Creatine Kinase MB < 0.5 0.5-3.6 ng/ml Creatine Kinase MB Ratio 0-3.0 Test 11/12/16 13:17 11/12/16 13:26 Range/Units Creatine Kinase MB Ratio 1.3 0-3.0 Sodium Level 139 136-145 mmol/L Potassium Level 3.7 3.5-5.1 mmol/L Chloride Level 102 98-107 mmol/L Carbon Dioxide Level 29 21-32 mmol/L Anion Gap 8.0 3-11 mmol/L Blood Urea Nitrogen 12 7-18 mg/dl Creatinine 0.94 0.60-1.20 mg/dl Est Creatinine Clear Calc Drug Dose 61.4 ml/min Estimated GFR () 74.3 Estimated GFR (Non- 64.1 BUN/Creatinine Ratio 12.3 10-20 Random Glucose 73 70-99 mg/dl Calcium Level 9.1 8.5-10.1 mg/dl Total Creatine Kinase 45 26-192 U/L Creatine Kinase MB 0.6 0.5-3.6 ng/ml Troponin I < 0.015 0-0.045 ng/ml
[2016-11-12] MEDS: LISINOPRIL 5 MG TAB PO SCH (20:28)
[2016-11-12] MEDS: MoRPHine SULFATE 2 MG/ML CARP IV PRN (23:35)
[2016-11-13] VITALS (8 sets, daily range): BP systolic 78–104; BP diastolic 49–70; PULSE 72–87; TEMP 36.3–36.9; O2SAT 94–97
[2016-11-13] MEDS: ACETAMINOPHEN 325 MG TAB PO PRN ×2 (02:18→22:18)
[2016-11-13] MEDS: PROMETHAZINE HCL INJ 12.5 MG in SODIUM CHLORIDE 0.9% 50ML 50 ML IV PRN (02:32)
[2016-11-13] MEDS: ASPIRIN 81 MG ECTAB PO SCH (07:32)
[2016-11-13] MEDS: PANTOprazole SOD 40 MG TAB PO SCH ×2 (07:32→20:36)
[2016-11-13] MEDS: SPIRONOLACTONE 25 MG TAB PO SCH ×2 (07:32→16:47)
[2016-11-13] MEDS: METOPROLOL SUCC 50MG EXT REL TAB PO SCH ×2 (07:33→20:36)
[2016-11-13] MEDS: ALPRAZOLAM 0.5 MG TAB PO SCH ×4 (07:35→20:35)
[2016-11-13 08:50] LABS: HEMATOCRIT 34.5 % (37-47); MEAN CELL VOLUME 85.8 fL (80-100); MEAN CORPUSCULAR HEMOGLOBIN 27.1 pg (25-34); MEAN CORPUSCULAR HGB CONC 31.6 g/dl (32-36); MEAN PLATELET VOLUME 9.3 fL (7.4-10.4); PLATELET COUNT 252 K/uL (130-400); RED BLOOD COUNT 4.02 M/uL (4.2-5.4); WHITE BLOOD COUNT 6.26 K/uL (4.8-10.8)
[2016-11-13 09:00] LABS: INR 2.5 (0.9-1.1); PROTHROMBIN TIME (PATIENT) 27.8 SECONDS (9.0-12.0)
[2016-11-13 09:11] LABS: BUN/CREATININE RATIO 18.1 (10-20); CALCIUM 8.8 mg/dl (8.5-10.1); CREATININE 0.78 mg/dl (0.60-1.20); MAGNESIUM 2.2 mg/dl (1.8-2.4); POTASSIUM 3.5 mmol/L (3.5-5.1)
[2016-11-13 09:15] LABS: ALB/GLOB RATIO 0.9 (0.9-2); FERRITIN 25.4 ng/ml (8.0-388.0)
[2016-11-13] MEDS ORDERED: POTASSIUM CHLORIDE 20 MEQ TABCR PO ONE (09:45)
--- NOTE | 2016-11-13 09:46 | Cardiology Follow-Up ---
Subjective General Date of Service: Nov 13, 2016. Chief Complaint: Chest pain Pt evaluation today including: conversation w/ patient, physical exam, chart review, lab review, review of studies, review of inpatient medication list History of Present Illness Patient seen and examined. Resting comfortably. Laying flat without cough, orthopnea, or PND. No abdominal bloating or lower extremity peripheral edema. Notes chest pain, neck pain, back pain, nausea, and diaphoresis overnight. Two bouts of diarrhea over the past 24 hours Morning labs not available at the time of my evaluation. Toprol XL held last night secondary to hypotension. Lisinopril administered last night. Telemetry: atrial sensed ventricular paced. Heart rates have been controlled over the past 14 hours, currently in the lower 80's. EKG this morning (13-NOV-2016 @ 06:35:41) revealed an atrial-sensed ventricular- paced rhythm at 79 bpm. November 12, 2016 TTE Interpretation Summary ([facility], Dr. Nguyễn): There is global thinning of the left ventricular esparza. The left ventricle is severely dilated. There is severe global hypokinesis of the left ventricle. Left ventricular systolic function is severely reduced. The qualitative left ventricular ejection fraction is < 20% There is moderate to severe mitral regurgitation. The etiology of the metral regurtitation is secondary mitral regurgitation from left ventricular chamber dilatation with resultant leaflet motion in systole ( Maeve functional classification Type IIIb ). There is moderate tricuspid regurgitation. Doppler findings do not suggest pulmonary hypertension. Diastolic dysfunction, Grade III (restrictive pattern), consistent with markedly increased left atrial pressure. The inferior vena cava diameter is collapsed at baseline, consistent with low right atrial pressure and low central venous pressure. Compared to the prior study dated 10/01/13 , the LV systolic function is relatively unchanged. Allergies Coded Allergies: Cefazolin (Verified Allergy, Severe, ANAPHYLAXIS, 11/11/16) Phenytoin (Verified Allergy, Intermediate, HIVES, 11/11/16) PER ROUTINE PREOP ORDERS [id number] Diphenhydramine (Verified Allergy, Mild, HAS OPPOSITE EFFECTS, 11/11/16) Zolpidem (Verified Allergy, Mild, HAS OPPOSITE EFFECTS, 11/11/16) Ciprofloxacin (Verified Allergy, Unknown, UNKNOWN, 11/11/16) Clindamycin (Verified Allergy, Unknown, UNKNOWN, 11/11/16) Fentanyl (Verified Allergy, Unknown, HAS OPPOSITE EFFECTS, 11/11/16) Ivabradine (Unverified Allergy, Unknown, RASH/DEPLETED POTASSIUM IN BOODY , 11/11/16) Tramadol (Verified Adverse Reaction, Intermediate, SEIZURE, 11/11/16) PER ROUTINE PRE-OP ORDERS [id number] Social History Smoking Status: Never Smoker Hx Tobacco Use In Past Year?: No Hx Alcohol Use - Type And Amou: No Hx Substance Use - Type And Am: No Problem List Medical Problems: (1) Chest pain Status: Acute (2) Dyspnea on effort Status: Acute (3) Hypomagnesemia Status: Acute (4) Tachycardia Status: Acute Physical Exam Vital Signs Last Vital Signs Documentation Date Time Temp Pulse Resp B/P (MAP) Pulse Ox O2 Delivery O2 Flow Rate FiO2 11/13/16 08:00 95 Room Air 11/13/16 07:50 36.5 72 20 94/65 (75) Physical Exam Constitutional: Level of Distress: NAD, chronically ill Psychiatric: Mental Status: abnormal affect, lethargic Orientation: to time, to place, to person Memory: recent memory normal, remote memory normal Head: normocephalic, atraumatic Eyes: Pupils: PERRLA Neck: pertinent finding (Normal JVP. No HJR) Lungs: Respiratory effort: no dyspnea Auscultation: no wheezing, no rales/crackles, no rhonchi, deminished air movement Cardiovascular: Heart Auscultation: RRR Peripheral Pulses: Carotid Pulse: normal on the left, normal on the right Dorsalis Pedis Pulse: normal on the left, normal on the right Abdomen: Bowel Sounds: normal Inspection & Palpation: soft, non-distended, no masses Liver: no hepatomegaly Extremities: no cyanosis, no edema, no clubbing Neurologic: Cranial Nerves: grossly intact Assessment and Plan Assessment and Plan Noncardiac chest discomfort (placing a stethoscope on the chest results in discomfort) No historical evidence of syncope NYHA Class III+ CHF secondary to a severe nonischemic cardiomyopathy status post BiV-ICD implantation as detailed above. Normal BiV-ICD function, without significant arrhythmias on interrogation this admission. Volume status appears normovolemic to mildly hypovolemic. RECOMMENDATIONS/PLAN: Maintain electrolytes. Hold Torsemide this AM; Resume lower dose Torsemide tonight. Will give 20 mg tonight and reassessing volume status in AM. Home dosing of Torsemide was 100 mg /day. Continue Toprol XL, Lisinopril, and spironolactone as prescribed. Outpatient advance heart failure evaluation at [facility], LVAD versus transplantation Note: Previously evaluated by Advanced Heart Failure at [facility]. Unable to tolerate Entresto, issues with Corlanor. CARDIOLOGY ATTENDING ADDENDUM: The patient was seen and personally examined. Agree with Shaun Paulino PA-C's findings and plans as documented above. Pt resting comfortably. BP was low at 11 am vitals. BP better now. Last Vital Signs Documentation Date Time Temp Pulse Resp B/P (MAP) Pulse Ox O2 Delivery O2 Flow Rate FiO2 11/13/16 15:41 36.8 87 18 88/62 (71) 97 Room Air Will hold of on PM diuretic dose tonight. Reassess volume status 11/14. Laboratory Results Last 24 Hours Test 11/12/16 13:17 11/12/16 13:26 11/13/16 02:13 11/13/16 08:12 Creatine Kinase MB Ratio 1.3 Sodium Level 139 mmol/L 142 mmol/L Potassium Level 3.7 mmol/L 3.5 mmol/L Chloride Level 102 mmol/L 108 mmol/L Carbon Dioxide Level 29 mmol/L 23 mmol/L Anion Gap 8.0 mmol/L 11.0 mmol/L Blood Urea Nitrogen 12 mg/dl 14 mg/dl Creatinine 0.94 mg/dl 0.78 mg/dl Est Creatinine Clear Calc Drug Dose 61.4 ml/min 75.2 ml/min Estimated GFR () 74.3 93.1 Estimated GFR (Non- 64.1 80.3 BUN/Creatinine Ratio 12.3 18.1 Random Glucose 73 mg/dl 125 mg/dl Calcium Level 9.1 mg/dl 8.8 mg/dl Total Creatine Kinase 45 U/L Creatine Kinase MB 0.6 ng/ml Troponin I < 0.015 ng/ml Bedside Glucose 110 mg/dl White Blood Count 6.26 K/uL Red Blood Count 4.02 M/uL Hemoglobin 10.9 g/dL Hematocrit 34.5 % Mean Corpuscular Volume 85.8 fL Mean Corpuscular Hemoglobin 27.1 pg Mean Corpuscular Hemoglobin Concent 31.6 g/dl RDW Standard Deviation 46.0 fL RDW Coefficient of Variation 14.7 % Platelet Count 252 K/uL Mean Platelet Volume 9.3 fL Prothrombin Time 27.8 SECONDS Prothromb Time International Ratio 2.5 Magnesium Level 2.2 mg/dl Iron Level 66 mcg/dl Total Iron Binding Capacity 428 mcg/dl Transferrin 300 mg/dl Transferrin % Saturation 16 % Ferritin 25.4 ng/ml Total Bilirubin 0.3 mg/dl Aspartate Amino Transf (AST/SGOT) 8 U/L Alanine Aminotransferase (ALT/SGPT) 10 U/L Alkaline Phosphatase 103 U/L Total Protein 6.0 gm/dl Albumin 2.9 gm/dl Globulin 3.1 gm/dl Albumin/Globulin Ratio 0.9
--- NOTE | 2016-11-13 14:19 | Progress Note ---
Internal Med Progress Note Date of Service: Nov 13, 2016. Provider Documentation: SUBJECTIVE: has non productive cough hurts chest across with coughing no complain of orthopnea or SOB OBJECTIVE: Vital Signs-as noted below Exam: General-no sign of distress Eyes-sclera non icteric ENT-NAD Neck-no JVD Lungs-CTA Heart-regular Abdomen-soft, non tender Extremities-no lower ext edema Neuro-AAO x3, no focal deficit Lab data as noted below. ASSESSMENT & PLAN: Chest Pain/ no cardiac : chest wall tenderness/soreness with cough no evidence of ACS cont symptom control cardiac enzymes negative appreciate cardiology eval Chronic CHF with severe non ischemic cardiomyopathy : status post BiV-ICD implantation ECHO : Transthoracic echocardiogram performed today and reviewed independently by the undersigned: Severe left ventricular chamber dilatation, left ventricular end-diastolic dimension was 6.5 cm. Severe global left ventricular hypokinesis with severely reduced ejection fraction, less than 20%. Moderate to severe mitral regurgitation secondary to left ventricular chamber dilatation and tethering of the mitral valve apparatus. diuretics resumed on lower dose -Torsemide 20 mg at night reassess volume status in AM. ( prior dose Torsemide was 100 mg/day. ) Continue Toprol XL, Lisinopril, and spironolactone resumed as prior dose pt is scheduled to follow up at [facility] next Friday pt will likely to reschedule Hypokalemia corrected due to diuresis K level with in normal limit replaced cont to monitor K and Mg level S/P Fall, likely Mechanical Fall no complain of dizzy spell or lightheadedness at present able to ambulate in hallway without any discomfort possibly orthostatic due to increase in diuretics recently monitor in tele orthostatic vitals Hx. of A. Fluttalycia continue b-carola Coumadin resumed DVT ppx Coumadin DISPOSITION to home when medically stable Vital Signs: Date Time Temp Pulse Resp B/P (MAP) Pulse Ox O2 Delivery O2 Flow Rate FiO2 11/13/16 12:00 97 Room Air 11/13/16 11:05 36.9 81 18 78/49 (59) 94 Room Air 95/65 (75) 11/13/16 08:00 95 Room Air 11/13/16 07:50 36.5 72 20 94/65 (75) 95 Room Air 11/13/16 04:00 Room Air 11/13/16 03:58 36.5 78 16 89/54 (66) 95 Room Air 11/13/16 00:00 Room Air 11/12/16 23:36 36.7 85 18 94/61 (72) 96 Room Air 11/12/16 20:00 Room Air 11/12/16 19:55 36.8 88 22 86/57 (67) 94 Room Air 11/12/16 16:00 Room Air 11/12/16 15:33 37.1 98 22 97/66 (76) 94 Room Air Lab Results: Results Past 24 Hours Test 11/13/16 02:13 11/13/16 08:12 Range/Units Bedside Glucose 110 70-90 mg/dl White Blood Count 6.26 4.8-10.8 K/uL Red Blood Count 4.02 4.2-5.4 M/uL Hemoglobin 10.9 12.0-16.0 g/dL Hematocrit 34.5 37-47 % Mean Corpuscular Volume 85.8 80-100 fL Mean Corpuscular Hemoglobin 27.1 25-34 pg Mean Corpuscular Hemoglobin Concent 31.6 32-36 g/dl RDW Standard Deviation 46.0 36.4-46.3 fL RDW Coefficient of Variation 14.7 11.5-14.5 % Platelet Count 252 130-400 K/uL Mean Platelet Volume 9.3 7.4-10.4 fL Prothrombin Time 27.8 9.0-12.0 SECONDS Prothromb Time International Ratio 2.5 0.9-1.1 Sodium Level 142 136-145 mmol/L Potassium Level 3.5 3.5-5.1 mmol/L Chloride Level 108 98-107 mmol/L Carbon Dioxide Level 23 21-32 mmol/L Anion Gap 11.0 3-11 mmol/L Blood Urea Nitrogen 14 7-18 mg/dl Creatinine 0.78 0.60-1.20 mg/dl Est Creatinine Clear Calc Drug Dose 75.2 ml/min Estimated GFR () 93.1 Estimated GFR (Non- 80.3 BUN/Creatinine Ratio 18.1 10-20 Random Glucose 125 70-99 mg/dl Calcium Level 8.8 8.5-10.1 mg/dl Magnesium Level 2.2 1.8-2.4 mg/dl Iron Level 66 35-150 mcg/dl Total Iron Binding Capacity 428 250-450 mcg/dl Transferrin 300 200-360 mg/dl Transferrin % Saturation 16 15-50 % Ferritin 25.4 8.0-388.0 ng/ml Total Bilirubin 0.3 0.2-1 mg/dl Aspartate Amino Transf (AST/SGOT) 8 15-37 U/L Alanine Aminotransferase (ALT/SGPT) 10 12-78 U/L Alkaline Phosphatase 103 45-117 U/L Total Protein 6.0 6.4-8.2 gm/dl Albumin 2.9 3.4-5.0 gm/dl Globulin 3.1 2.5-4.0 gm/dl Albumin/Globulin Ratio 0.9 0.9-2
[2016-11-13] MEDS: LISINOPRIL 5 MG TAB PO SCH (20:37)
[2016-11-13] MEDS ORDERED: TRAVOPROST Z 0.004% OPH SOLN 2.5 ML BTL OPB SCH (21:00)
[2016-11-13] MEDS ORDERED: LATANOPROST 0.005% OP SOLN 2.5 ML BTL OP SCH (21:00)
[2016-11-13] MEDS ORDERED: POTASSIUM CHLORIDE 10 MEQ TABCR PO ONE (21:00)
[2016-11-13] MEDS ORDERED: TORSEMIDE 20 MG TAB PO ONE (21:00)
[2016-11-13] MEDS: MoRPHine SULFATE 2 MG/ML CARP IV PRN (22:17)
[2016-11-14] MEDS: MoRPHine SULFATE 2 MG/ML CARP IV PRN (02:00)
[2016-11-14 03:28] VITALS: BP 102/66; PULSE 88; TEMP 36.7; O2SAT 95
[2016-11-14] MEDS ORDERED: ACETAMINOPHEN/CODEINE 300/30MG TAB PO STA (03:58)
--- NOTE | 2016-11-14 07:00 | Clinical Documentation Query ---
DWAYNE FarrellESHA : CLINICAL DOCUMENTATION QUERY Patient is a 66 year old female admitted with a 3 day history of chest pain starting 3 days prior to admission after falling off her mattress. Chest pain describe as "non cardiac" and attributed to "likely chest wall tenderness". As appropriate, consider documentation as suggested below so as to capture the most accurate clinical diagnosis. In your clinical opinion is this patient being managed for: (x ) Musculoskeletal chest pain ( ) Other explanation of clinical findings (Please Explain) ( ) Unable to determine (Please Define) ( ) Need to Discuss ( ) Not Agree The medical record reflects the following clinical findings, treatment, and risk factors. Clinical Indicators: As above, tender to palpation Treatment: Telemetry, cardiology evaluation, serial enzymes Risk Factors: Fall Please clarify and document your clinical opinion in the progress notes and discharge summary. Terms such as "probable", "suspected", "likely", "questionable", "possible", or "still to be ruled out" are acceptable. IF IN AGREEMENT, YOU MUST DOCUMENT ABOVE DIAGNOSTIC STATEMENT IN DAILY PROGRESS NOTES AND DISCHARGE SUMMARY. This document is not part of the patient's record. Thank You, Parker Lopez, RN [phone]
[2016-11-14 07:46] VITALS: BP 76/49; PULSE 70; TEMP 36.6; O2SAT 93
[2016-11-14 08:00] VITALS: O2SAT 93
[2016-11-14] MEDS: METOPROLOL SUCC 50MG EXT REL TAB PO SCH ×2 (08:44→09:58)
[2016-11-14] MEDS: ALPRAZOLAM 0.5 MG TAB PO SCH ×2 (08:45→13:17)
[2016-11-14] MEDS: ASPIRIN 81 MG ECTAB PO SCH (08:46)
[2016-11-14] MEDS: PANTOprazole SOD 40 MG TAB PO SCH (08:46)
[2016-11-14] MEDS: SPIRONOLACTONE 25 MG TAB PO SCH (08:47)
[2016-11-14 08:59] VITALS: BP_SYST 99; BP_DIAS 60; BP_DIAS 64
--- NOTE | 2016-11-14 09:45 | Progress Note ---
Internal Med Progress Note Date of Service: Nov 14, 2016. Provider Documentation: SUBJECTIVE: found to be hypotensive this AM BP in 70's repeat SBP 99 denies of any symptom of chest pain or dizzy spell no DICKERSON mentions her BP always been low wants to know when she can be discharged home OBJECTIVE: Vital Signs-as noted below Exam: General-no sign of distress Eyes-sclera non icteric ENT-NAD Neck-no JVD Lungs-CTA Heart-regular Abdomen-soft, non tender Extremities-no lower ext edema Neuro-AAO x3, no focal deficit Lab data as noted below. ASSESSMENT & PLAN: Chest Pain/ no cardiac : musculoskeletal-reproducible with chest wall palpation chest wall tenderness/soreness with cough no evidence of ACS cont symptom control cardiac enzymes negative appreciate cardiology eval Chronic CHF with severe non ischemic cardiomyopathy : status post BiV-ICD implantation ECHO : Transthoracic echocardiogram performed today and reviewed independently by the undersigned: Severe left ventricular chamber dilatation, left ventricular end-diastolic dimension was 6.5 cm. Severe global left ventricular hypokinesis with severely reduced ejection fraction, less than 20%. Moderate to severe mitral regurgitation secondary to left ventricular chamber dilatation and tethering of the mitral valve apparatus. diuretics adjusted : Resume Torsemide at 20 mg twice a day. Resume spironolactone at 25 mg/day Continue Toprol XL 100 mg BID, Lisinopril 2.5 mg QHS, proper coumadin anticoagulation and supplemental oxygen as prescribed. Close outpatient cardiology follow-up. Outpatient advance heart failure evaluation at [facility], LVAD versus transplantation stable to be discharged home today Hypokalemia corrected -K level remains normal due to diuresis K level with in normal limit replaced cont to monitor K and Mg level S/P Fall, likely Mechanical Fall no complain of dizzy spell or lightheadedness at present able to ambulate in hallway without any discomfort possibly orthostatic due to increase in diuretics recently monitor in tele orthostatic vitals Hx. of A. Flutter continue b-carola Coumadin resumed DVT ppx Coumadin DISPOSITION Discharge home today Medicine follow up with Dr Christopher Vital Signs: Date Time Temp Pulse Resp B/P (MAP) Pulse Ox O2 Delivery O2 Flow Rate FiO2 11/14/16 08:59 99/60 (73) 99/64 (76) 11/14/16 07:46 36.6 70 20 76/49 (58) 93 Room Air 11/14/16 04:00 Room Air 11/14/16 03:28 36.7 88 20 102/66 (78) 95 Room Air 11/14/16 00:00 Room Air 11/13/16 23:39 36.6 82 18 104/70 (81) 95 Room Air 11/13/16 20:24 Room Air 11/13/16 19:27 36.3 84 20 98/66 (77) 94 Room Air 11/13/16 16:00 Room Air 11/13/16 15:41 36.8 87 18 88/62 (71) 97 Room Air 11/13/16 12:00 97 Room Air 11/13/16 11:05 36.9 81 18 78/49 (59) 94 Room Air 95/65 (75) Lab Results: Results Past 24 Hours Test 11/14/16 10:32 11/14/16 10:40 Range/Units Prothrombin Time 19.7 9.0-12.0 SECONDS Prothromb Time International Ratio 1.8 0.9-1.1
--- NOTE | 2016-11-14 09:46 | Discharge Instructions ---
Discharge Instructions Date of Service Nov 14, 2016. Admission Reason for Admission: Chest Pain, Tachycardia Discharge Discharge Diagnosis / Problem: CHF /SEVERE NON ISCHEMIC CARDIOMYOPATHY Discharge Goals Goal(s): Decrease discomfort, Diagnostic testing Activity Recommendations Activity Limitations: resume your previous activity . Instructions / Follow-Up Instructions / Follow-Up HOSPITAL FOLLOW UP : 11/20/2016 10:20 AM Adan Christopher MD [facility] DO NOT TAKE TYLENOL OVER THE COUNTER WHILE TAKING TYLENOL #3 WILL CAUSE OVER DOSE MEDICATION ADJUSTMENTS: Torsemide at 20 mg twice a day. spironolactone at 25 mg/day Toprol XL 100 mg BID, Lisinopril 2.5 mg AT NIGHT CARDIOLOGY FOLLOW UP IN 1-2 WEEKS , OFFICE WILL CALL WITH APPOINTMENT Outpatient advance heart failure evaluation at [facility], LVAD versus transplantation Call your Primary Care doctor if any of the following symptoms or problems start or get worse: * Shortness of breath or difficulty breathing * Wake up at night short of breath * Chest pain * Cough * Swelling of your hands, feet, or legs * More fatigued or tired with your normal activity * Palpitations - sudden fast heart beats WEIGHT * Weigh yourself every morning after using the bathroom. * Use the same scale. * Wear the same amount of clothing. * Write your weight down on a chart. * Call your Primary Care doctor if you gain more than 2-3 pounds in 1-2 days. MEDICATIONS * Use this discharge instruction sheet for medication instructions. * Take your medications at the time your doctor ordered. * Do not skip a dose of your medicines. * If you miss a dose of medicine, take it as soon as possible, but DO NOT DOUBLE A DOSE. * Read your medicine information when you get home. * Know all of the side effects of your medicine. If in doubt, ask your pharmacist * Call your Primary Care doctor's office if you have any side effects. * Be sure all of your doctors know what medicine and herbs you take (including cold, flu, and herbal medicine). Take the following with you to your follow-up doctor appointments: * Weight Chart * Medication List * List of questions Do not drink excessive alcohol, beer or wine. Current Hospital Diet Patient's current hospital diet: AHA Diet (Heart Healthy) Discharge Diet Recommended Diet: AHA Diet (Heart Healthy) Pending Studies Studies pending at discharge: no Medical Emergencies . Who to Call and When: Call 911 or go to the Emergency Room if: * If at any time you feel your situation is an emergency * You have tightness or pain in your chest that does not go away with rest or Nitroglycerin * You are very short of breath even with rest . Non-Emergent Contact Non-Emergency issues call your: Primary Care Provider . . "Provider Documentation" section prepared by Veronica Posey. . VTE Core Measure Inpt VTE Proph given/why not?: Warfarin (Coumadin)
[2016-11-14] MEDS ORDERED: LSN5 PO (10:22)
[2016-11-14] MEDS ORDERED: SPR25 PO ×2 (10:22→11:00)
[2016-11-14] MEDS ORDERED: ACET-749 PO (10:23)
[2016-11-14] MEDS ORDERED: ACETAMINOPHEN/CODEINE 300/30MG TAB PO PRN (10:30)
--- NOTE | 2016-11-14 10:43 | Cardiology Follow-Up ---
Subjective General Date of Service: Nov 14, 2016. Chief Complaint: Chest pain Pt evaluation today including: conversation w/ patient, physical exam, chart review, lab review, review of studies, review of inpatient medication list History of Present Illness Patient seen and examined. Diffuse musculoskeletal discomfort. Right shoulder discomfort aided by a hot compression, all others aided by Tylenol#3. Resting comfortably. Laying flat without cough, orthopnea, PND, abdominal bloating or lower extremity peripheral edema. Telemetry: atrial sensed ventricular paced. Heart rates have been well controlled over the last 24 hours. Allergies Coded Allergies: Cefazolin (Verified Allergy, Severe, ANAPHYLAXIS, 11/11/16) Phenytoin (Verified Allergy, Intermediate, HIVES, 11/11/16) PER ROUTINE PREOP ORDERS [id number] Diphenhydramine (Verified Allergy, Mild, HAS OPPOSITE EFFECTS, 11/11/16) Zolpidem (Verified Allergy, Mild, HAS OPPOSITE EFFECTS, 11/11/16) Ciprofloxacin (Verified Allergy, Unknown, UNKNOWN, 11/11/16) Clindamycin (Verified Allergy, Unknown, UNKNOWN, 11/11/16) Fentanyl (Verified Allergy, Unknown, HAS OPPOSITE EFFECTS, 11/11/16) Ivabradine (Unverified Allergy, Unknown, RASH/DEPLETED POTASSIUM IN BOODY , 11/11/16) Tramadol (Verified Adverse Reaction, Intermediate, SEIZURE, 11/11/16) PER ROUTINE PRE-OP ORDERS [id number] Social History Smoking Status: Never Smoker Hx Tobacco Use In Past Year?: No Hx Alcohol Use - Type And Amou: No Hx Substance Use - Type And Am: No Problem List Medical Problems: (1) Chest pain Status: Acute (2) Dyspnea on effort Status: Acute (3) Hypomagnesemia Status: Acute (4) Tachycardia Status: Acute Physical Exam Vital Signs Last Vital Signs Documentation Date Time Temp Pulse Resp B/P (MAP) Pulse Ox O2 Delivery O2 Flow Rate FiO2 11/14/16 08:59 99/60 (73) 99/64 (76) 11/14/16 07:46 36.6 70 20 93 Room Air Physical Exam Constitutional: Level of Distress: NAD, chronically ill Psychiatric: Mental Status: abnormal affect, lethargic Orientation: to time, to place, to person Memory: recent memory normal, remote memory normal Head: normocephalic, atraumatic Eyes: Pupils: PERRLA Neck: pertinent finding (Normal JVP. No HJR) Lungs: Respiratory effort: no dyspnea Auscultation: no wheezing, no rales/crackles, no rhonchi, deminished air movement Cardiovascular: Heart Auscultation: RRR Peripheral Pulses: Carotid Pulse: normal on the left, normal on the right Dorsalis Pedis Pulse: normal on the left, normal on the right Abdomen: Bowel Sounds: normal Inspection & Palpation: soft, non-distended, no masses Liver: no hepatomegaly Extremities: no cyanosis, no edema, no clubbing Neurologic: Cranial Nerves: grossly intact Assessment and Plan Assessment and Plan Noncardiac chest discomfort, diffuse musculoskeletal discomfort No historical evidence of syncope NYHA Class III+ CHF secondary to a severe nonischemic cardiomyopathy status post BiV-ICD implantation as detailed above. Normal BiV-ICD function, without significant arrhythmias on interrogation this admission. Volume status: normovolemic RECOMMENDATIONS/PLAN: Basic metabolic panel, magnesium level, and a PT/INR today. Resume Torsemide at 20 mg twice a day. Resume spironolactone at 25 mg/day Continue Toprol XL 100 mg BID, Lisinopril 2.5 mg QHS, proper coumadin anticoagulation and supplemental oxygen as prescribed. Close outpatient cardiology follow-up. Outpatient advance heart failure evaluation at [facility], LVAD versus transplantation CARDIOLOGY ATTENDING ADDENDUM: The patient was seen and personally examined. Agree with Shaun Paulino PA-C's findings and plans as documented above with additions as noted below. Patient feeling better with increased energy today. She is walking in hallway. Exam: No edema. lungs clear Data: Last Resulted 11/13/16 08:12 Last Resulted 11/14/16 10:32 Past 24 Hours Test 11/14/16 10:32 Range/Units Prothromb Time International Ratio 1.8 H 0.9-1.1 Prothrombin Time 19.7 H 9.0-12.0 SECONDS Impression: Advanced heart failure, non ischemic CM. Admitted with volume depletion and non cardiac chest pain. Improved after holding off on diuretic therapy. Plan: DC with torsemide dose as above. Has plans for consult with advanced heart failure at [facility]. Laboratory Results Last 24 Hours Test 11/14/16 10:32
[2016-11-14 10:58] LABS: INR 1.8 (0.9-1.1); PROTHROMBIN TIME (PATIENT) 19.7 SECONDS (9.0-12.0)
[2016-11-14] MEDS ORDERED: DMD20 PO (11:00)
--- NOTE | 2016-11-14 11:06 | Discharge Summary ---
Discharge Summary Date of Service Nov 14, 2016. Discharge Summary Admission Date: Nov 13, 2016 at 12:52 Discharge Date: Nov 14, 2016 Discharge Disposition: Home Principal Diagnosis: CHF /SEVERE NON ISCHEMIC CARDIOMYOPATHY Procedures: CHEST XRAY : IMPRESSION: No active disease in the chest. ECHO 11/13/2015 : There is global thinning of the left ventricular esparza. The left ventricle is severely dilated. There is severe global hypokinesis of the left ventricle. Left ventricular systolic function is severely reduced. The qualitative left ventricular ejection fraction is < 20% There is moderate to severe mitral regurgitation. The etiology of the metral regurtitation is secondary mitral regurgitation from left ventricular chamber dilatation with resultant leaflet motion in systole ( Maeve functional classification Type IIIb ). There is moderate tricuspid regurgitation. Doppler findings do not suggest pulmonary hypertension. Diastolic dysfunction, Grade III (restrictive pattern), consistent with markedly increased left atrial pressure. The inferior vena cava diameter is collapsed at baseline, consistent with low right atrial pressure and low central venous pressure. Compared to the prior study dated 10/01/13 , the LV systolic function is relatively unchanged. Consultations: [facility] Medication Reconciliation New Medications: Acetaminophen/Codeine (Tylenol W/Codeine #3) 300 Mg/30 Mg Tab 1 TAB PO Q8 PRN for Pain, #60 TAB Torsemide (Torsemide) 20 Mg Tab 1 TAB PO BID for 30 Days, #60 TAB Lisinopril (Lisinopril) 5 Mg Tab 2.5 MG PO QPM for 30 Days, #30 TAB Spironolactone (Spironolactone) 25 Mg Tab 25 MG PO DAILY for 30 Days, #30 TAB Continued Medications: Alprazolam (Xanax) 1 Mg Tab 1 MG PO QID for Anxiety, TAB Home O2 Therapy (Oxygen) Gas 2 LITERS NA HS&PRN Metoprolol Succ (Toprol Xl) (Toprol-Xl ) 100 Mg Tabcr 100 MG PO BID, TAB Pantoprazole (Protonix) 40 Mg Tab 40 MG PO BID, TAB Travoprost (Travatan Z) 0.004 % Paul 1 DROP OPB HS Warfarin Sod (Jantoven) 5 Mg Tab 5 MG PO QPM, TAB Discontinued Medications: Brimonidine Tartrate (Alphagan P Oph) 0.1 % Elzbieta 1 DROP OPB BID, BTL Lisinopril (Zestril) 5 Mg Tab 2.5 MG PO BID, TAB Spironolactone (Spironolactone) 25 Mg Tab 25 MG PO QP, #90 Torsemide (Torsemide) 20 Mg Tab 20 MG PO 5XD, #180 Admission Information HPI (per Admitting provider): This is a 66 year old female with PMH of idiopathic cardiomyopathy and systolic CHF with EF ~ 20% s/p AICD, hx. of V-fib, Hx. of A-flutter on Coumadin presents to the ER after a fall on November 08. She states that her doses of Aldactone and torsemide have been increased recently. She has been having to urinate more often; states that on Friday, she was trying to get up at night to go to the bathroom and on her way to get up she fell and hit her back/R side. She developed R back pain. She thought nothing of it; but then developed substernal chest pain. States it was worse with movement. She denies shortness of breath/palpitations. Upon presentation, she was noted to have tachycardia. Chest pain improved. She is resting comfortably now. Physical Exam (per Admitting): General Appearance: no apparent distress Head: normocephalic, atraumatic Eyes: normal inspection Respiratory/Chest: lungs clear, normal breath sounds, no respiratory distress, no accessory muscle use, + pertinent finding (chest wall tenderness; R back pain to palpation) Cardiovascular: no edema, no murmur, + tachycardia Abdomen/GI: normal bowel sounds, non tender, soft Extremities/Musculoskelatal: no calf tenderness, normal capillary refill, no pedal edema Neurologic/Psych: no motor/sensory deficits, alert, normal mood/affect Hospital Course Chest Pain/ no cardiac : musculoskeletal-reproducible with chest wall palpation chest wall tenderness/soreness with cough no evidence of ACS cont symptom control cardiac enzymes negative appreciate cardiology eval Chronic CHF with severe non ischemic cardiomyopathy : status post BiV-ICD implantation ECHO : Transthoracic echocardiogram performed today and reviewed independently by the undersigned: Severe left ventricular chamber dilatation, left ventricular end-diastolic dimension was 6.5 cm. Severe global left ventricular hypokinesis with severely reduced ejection fraction, less than 20%. Moderate to severe mitral regurgitation secondary to left ventricular chamber dilatation and tethering of the mitral valve apparatus. diuretics adjusted : Resume Torsemide at 20 mg twice a day. Resume spironolactone at 25 mg/day Continue Toprol XL 100 mg BID, Lisinopril 2.5 mg QHS, proper coumadin anticoagulation and supplemental oxygen as prescribed. Close outpatient cardiology follow-up. Outpatient advance heart failure evaluation at [facility], LVAD versus transplantation stable to be discharged home today Hypokalemia corrected -K level remains normal due to diuresis K level with in normal limit replaced cont to monitor K and Mg level S/P Fall, likely Mechanical Fall no complain of dizzy spell or lightheadedness at present able to ambulate in hallway without any discomfort possibly orthostatic due to increase in diuretics recently monitor in tele orthostatic vitals Hx. of A. Flutter continue b-carola Coumadin resumed DVT ppx Coumadin DISPOSITION Discharge home today Medicine follow up with Dr Christopher Total time spent on discharge = 40 mins This includes examination of the patient, discharge planning, medication reconciliation, and communication with other providers. Discharge Instructions DI: CHF v4 Discharge Instructions Date of Service Nov 14, 2016. Admission Reason for Admission: Chest Pain, Tachycardia Discharge Discharge Diagnosis / Problem: CHF /SEVERE NON ISCHEMIC CARDIOMYOPATHY Discharge Goals Goal(s): Decrease discomfort, Diagnostic testing Activity Recommendations Activity Limitations: resume your previous activity . Instructions / Follow-Up Instructions / Follow-Up HOSPITAL FOLLOW UP : 11/20/2016 10:20 AM Adan Christopher MD [facility] DO NOT TAKE TYLENOL OVER THE COUNTER WHILE TAKING TYLENOL #3 WILL CAUSE OVER DOSE MEDICATION ADJUSTMENTS: Torsemide at 20 mg twice a day. spironolactone at 25 mg/day Toprol XL 100 mg BID, Lisinopril 2.5 mg AT NIGHT CARDIOLOGY FOLLOW UP IN 1-2 WEEKS , OFFICE WILL CALL WITH APPOINTMENT Outpatient advance heart failure evaluation at [facility], LVAD versus transplantation Call your Primary Care doctor if any of the following symptoms or problems start or get worse: * Shortness of breath or difficulty breathing * Wake up at night short of breath * Chest pain * Cough * Swelling of your hands, feet, or legs * More fatigued or tired with your normal activity * Palpitations - sudden fast heart beats WEIGHT * Weigh yourself every morning after using the bathroom. * Use the same scale. * Wear the same amount of clothing. * Write your weight down on a chart. * Call your Primary Care doctor if you gain more than 2-3 pounds in 1-2 days. MEDICATIONS * Use this discharge instruction sheet for medication instructions. * Take your medications at the time your doctor ordered. * Do not skip a dose of your medicines. * If you miss a dose of medicine, take it as soon as possible, but DO NOT DOUBLE A DOSE. * Read your medicine information when you get home. * Know all of the side effects of your medicine. If in doubt, ask your pharmacist * Call your Primary Care doctor's office if you have any side effects. * Be sure all of your doctors know what medicine and herbs you take (including cold, flu, and herbal medicine). Take the following with you to your follow-up doctor appointments: * Weight Chart * Medication List * List of questions Do not drink excessive alcohol, beer or wine. Current Hospital Diet Patient's current hospital diet: AHA Diet (Heart Healthy) Discharge Diet Recommended Diet: AHA Diet (Heart Healthy) Pending Studies Studies pending at discharge: no Medical Emergencies . Who to Call and When: Call 911 or go to the Emergency Room if: * If at any time you feel your situation is an emergency * You have tightness or pain in your chest that does not go away with rest or Nitroglycerin * You are very short of breath even with rest . Non-Emergent Contact Non-Emergency issues call your: Primary Care Provider . . "Provider Documentation" section prepared by Veronica Posey. . VTE Core Measure Inpt VTE Proph given/why not?: Warfarin (Coumadin) Additional Copies To Shaun Paulino PA-C Burke, P Brian, M.D. (MEDICAL)
[2016-11-14 12:00] VITALS: BP 97/56; PULSE 68; TEMP 36.7; O2SAT 94
[2016-11-14 12:03] LABS: BUN/CREATININE RATIO 23.2 (10-20); CREATININE 0.69 mg/dl (0.60-1.20); MAGNESIUM 2.1 mg/dl (1.8-2.4); POTASSIUM 4.6 mmol/L (3.5-5.1)
[2016-11-14 14:08] VITALS: BP 97/56; PULSE 68; TEMP 36.7; O2SAT 94
[2017-01-10] MEDS ORDERED: MCRK20 PO (15:54)
== END 2016-11-14 15:24 | disposition home health service (06) | DRG 313 ==
LOC: C.EDB 18:23 → C.2T 23:17 → ENRESERV 23:26 → OBSVTOIN 11-13 12:52
PROVIDERS: ADMIT Family Medicine; ATTEND Hospitalist
DX: R07.89 Other chest pain (principal); I42.8 Other cardiomyopathies; I50.22 Chronic systolic (congestive) heart failure; I48.92 Unspecified atrial flutter; W06.XXXA Fall from bed, initial encounter; Y92.003 Bedroom of unspecified non-institutional (private) residence as the place of occurrence of the external cause; E87.6 Hypokalemia; T50.2X5A Adverse effect of carbonic-anhydrase inhibitors, benzothiadiazides and other diuretics, initial encounter; E83.42 Hypomagnesemia; I95.1 Orthostatic hypotension; E86.1 Hypovolemia; F32.9 Major depressive disorder, single episode, unspecified; F41.9 Anxiety disorder, unspecified; Z95.810 Presence of automatic (implantable) cardiac defibrillator; Z96.643 Presence of artificial hip joint, bilateral; Z99.81 Dependence on supplemental oxygen; Z79.01 Long term (current) use of anticoagulants; Z79.899 Other long term (current) drug therapy

== ENCOUNTER 2017-01-08 03:58 | Observation (INO) | payer OTHER ==
[~2017-01-08] VITALS: Ht 167.6 cm; Wt 70.9 kg
[~2017-01-08 03:58] MED LIST changes: +ACET-749 PO; -BRIM0.1S OPB; +LSN5 PO; -[UNRECOGNIZED DRUG - CODE] PO
[2017-01-08] MEDS ORDERED: SODIUM CHLORIDE 0.9% 1000ML 1,000 ML IV STA ×2 (04:09→05:02)
[2017-01-08] MEDS ORDERED: SODIUM CHLORIDE 0.9% 500ML 500 ML IV STA (04:09)
[2017-01-08] MEDS ORDERED: OPTIRAY 320 IV PRN (04:15)
[2017-01-08 04:36] LABS: BASO % 0.1 %; BASO ABS # 0.01 K/uL (0-0.2); COMPLETE YES; HEMATOCRIT 37.3 % (37-47); IG% 0.4 %; LYMPH % 10.5 %; LYMPH ABS # 1.31 K/uL (1.2-3.4); MEAN CELL VOLUME 80.6 fL (80-100); MEAN CORPUSCULAR HEMOGLOBIN 27.9 pg (25-34); MEAN CORPUSCULAR HGB CONC 34.6 g/dl (32-36); MEAN PLATELET VOLUME 9.2 fL (7.4-10.4); MONO % 6.6 %; NEUT % 82.4 %; PLATELET COUNT 241 K/uL (130-400); RED BLOOD COUNT 4.63 M/uL (4.2-5.4); WHITE BLOOD COUNT 12.51 K/uL (4.8-10.8)
[2017-01-08 04:57] LABS: ALT/SGPT 17 U/L (12-78); AST/SGOT 20 U/L (15-37); BLOOD UREA NITROGEN 13 mg/dl (7-18); BUN/CREATININE RATIO 10.3 (10-20); CALCIUM 8.9 mg/dl (8.5-10.1); CARBON DIOXIDE 29 mmol/L (21-32); CHLORIDE 94 mmol/L (98-107); GLUCOSE 114 mg/dl (70-99); MAGNESIUM 1.7 mg/dl (1.8-2.4); POTASSIUM 2.9 mmol/L (3.5-5.1); SODIUM 132 mmol/L (136-145)
[2017-01-08] MEDS ORDERED: MAGNESIUM SULFATE 1GM / D5W 1 GM BAG IV STA (04:58)
[2017-01-08] MEDS ORDERED: POTASSIUM CHLORIDE 10 MEQ TABCR PO STA (04:58)
[2017-01-08] MEDS ORDERED: PROMETHAZINE HCL INJ 25 MG in SODIUM CHLORIDE 0.9% 50ML 50 ML IV STA (04:58)
[2017-01-08 05:09] LABS: ALKALINE PHOSPHATASE 120 U/L (45-117); CKMB/CK RATIO 2.1 (0-3.0)
[2017-01-08] MEDS ORDERED: METO-217 PO (05:09)
[2017-01-08 06:03] LABS: URINE APPEARANCE CLEAR (CLEAR); URINE BILIRUBIN NEG (NEG); URINE COLOR YELLOW; URINE NITRITE NEG (NEG); URINE PH 5.5 (4.5-7.5); URINE SPECIFIC GRAVITY 1.042 (1.000-1.030); UROBILINOGEN NEG (NEG); ZZUR CULT IF INDIC CLEAN CATCH NO
[2017-01-08 06:08] LABS: MANUAL MICROSCOPIC REQUIRED? YES; REVIEW REQ? NO
--- NOTE | 2017-01-08 06:20 | DIAGNOSTIC IMAGING REPORT ---
LEFT SHOULDER MIN 2 VIEWS ROUTINE CLINICAL HISTORY: left , pain COMPARISON: None. DISCUSSION: Mild degenerative change. No acute bony abnormality. No evidence for fracture or dislocation. There is no evidence for soft tissue swelling. IMPRESSION: Mild degenerative change. No acute process. The above report was generated using voice recognition software. It may contain grammatical, syntax or spelling errors. Electronically signed by: Shaun Pollack M.D. 01/08/2017 6:18 AM Dictated Date/Time: 01/08/2017 6:17 AM
[2017-01-08 06:31] LABS: URINE BACTERIA NEG (NEG); URINE RBC 0-4 /hpf (0-4)
--- NOTE | 2017-01-08 06:41 | DIAGNOSTIC IMAGING REPORT ---
CHEST ONE VIEW PORTABLE CLINICAL HISTORY: CHEST PAIN pain COMPARISON STUDY: 11/11/2016 FINDINGS: Mild stable cardia megaly. Permanent bipolar cardiac pacemaker. Mild chronic left basilar interstitial change. Mild chronic elevation left hemidiaphragm. Lungs otherwise are clear. IMPRESSION: Chronic and postoperative change. No acute process. The above report was generated using voice recognition software. It may contain grammatical, syntax or spelling errors. Electronically signed by: Shaun Pollack M.D. 01/08/2017 6:40 AM Dictated Date/Time: 01/08/2017 6:39 AM
--- NOTE | 2017-01-08 06:44 | EMERGENCY ROOM VISIT NOTE ---
History First contact with patient: 04:09 Chief Complaint: ILLNESS Stated Complaint: GENERAL ILLNESS/DIARRHEA History of Present Illness The patient is a 66 year old female who presents to the Emergency Room with complaints of fatigue, lack of sleep, diffuse abdominal pain and diarrhea for the past 6 days steadily getting worse. Patient denies chest pain, dyspnea, fever, chills, cough, congestion. Patient states earlier today she was laying on the bed on the phone and the phone dropped. Her friend called EMS and she refused care at that time as she was not sure why they were called. Patient states now she is feeling increasing fatigue with abdominal pain this is what prompted her to come to the ER at this hour. Patient describes the pain as cramping, ranging in severity 5 out of 10 to the lower abdomen. Nothing makes it better or worse. No blood or black in the stool. Patient c/o a few episodes of diarrhea and has IBS. Patient has heart failure and follows with Dr. Hernanedz. Her ejection fraction is less than 20%. Review of Systems See HPI for pertinent positives & negatives. A total of 10 systems reviewed and were otherwise negative. Past Medical/Surgical History Medical Problems: (1) Calculus of kidney and ureter (2) Cardiomyopathy (3) CHF (congestive heart failure) (4) Chronic osteoarthritis (5) Dyslipidemia (6) Hypokalemia (7) Hypothyroidism (8) Inguinal hernia (9) Left bundle branch block (10) left ventricular mural thrombus (11) Mitral valve regurgitation (12) Pulmonary hypertension (13) s/p arthroscopy/meniscectomy right knee (14) s/p cardiac catheterization (15) s/p colonoscopy (16) s/p EGD (17) s/p hysterectomy (18) s/p ORIF right humerus fracture (19) s/p pacemaker insertion (20) s/p placement AICD (21) s/p sinus surgery (22) s/p ROBYN left (23) s/p ROBYN right (24) Systolic heart failure (25) Ventricular fibrillation Family History FH: breast cancer SISTER FH: lung disease FATHER Social History Smoking Status: Never Smoker Alcohol Use: none Drug Use: none Marital Status: Housing Status: lives with family Occupation Status: disabled Current/Historical Medications Scheduled Home O2 Therapy (Oxygen), 2 LITERS NA HS&PRN Lisinopril (Lisinopril), 2.5 MG PO QPM Metoprolol Succinate (Toprol Xl), 100 MG PO BID Pantoprazole (Protonix), 40 MG PO BID Spironolactone (Spironolactone), 25 MG PO DAILY Torsemide (Torsemide), 1 TAB PO BID Travoprost (Travatan Z), 1 DROP OPB HS Warfarin Sod (Jantoven), 5 MG PO QPM Scheduled PRN Alprazolam (Xanax), 0.5-1 MG PO QID PRN for STRESS Physical Exam Vital Signs Date Time Temp Pulse Resp B/P (MAP) Pulse Ox O2 Delivery O2 Flow Rate FiO2 01/08/17 05:25 78 22 117/57 97 01/08/17 04:13 96 Room Air 01/08/17 04:13 96 Room Air 01/08/17 04:05 93 01/08/17 04:04 36.7 85 20 100/73 96 Room Air Physical Exam VITALS: Vitals are noted on the nurse's note and reviewed by myself. Vital signs stable. GENERAL: White female appearing older than stated age, in no acute distress, nondiaphoretic SKIN: The skin was without rashes, erythema, edema, or bruising. There is no tenting of the skin. Capillary reflex less than 2 seconds. HEAD: Normocephalic atraumatic. EARS: External auditory canals clear, tympanic membranes pearly coppola without erythema or effusion bilaterally. EYES: Pupils equal round and reactive to light and accommodation. Conjunctivae without injection, sclerae without icterus. Extraocular movements intact. NOSE: Patent, turbinates without inflammation or discharge. MOUTH: Mucous membranes mildly dry. Pharynx without erythema or exudate. Uvula midline. Airway patent. Tongue does not deviate. NECK: Supple without nuchal rigidity. No lymphadenopathy. No thyromegaly. Cervical spine is nontender. No JVD. HEART: Regular rate and rhythm LUNGS: Clear to auscultation bilaterally without wheezes, rales or rhonchi. No dullness to percussion. No retractions or accessory muscle use. ABDOMEN: Positive bowel sounds x 4. Normal tympanic percussion. Soft, tender to palpation lower abdomen, no CVA tenderness, without masses or organomegaly. Copeland sign negative. No guarding or rebound tenderness. MUSCULOSKELETAL: No muscle atrophy, erythema, or edema noted. NEURO: Patient was alert and oriented to person place and time. Normal sensation to light and sharp touch. No focal neurological deficits. Medical Decision & Procedures Laboratory Results 01/08/17 04:25 Red Blood Count 4.63, Mean Corpuscular Volume 80.6, Mean Corpuscular Hemoglobin 27.9, Mean Corpuscular Hemoglobin Concent 34.6, Mean Platelet Volume 9.2, Neutrophils (%) (Auto) 82.4, Lymphocytes (%) (Auto) 10.5, Monocytes (%) (Auto) 6.6, Eosinophils (%) (Auto) 0.0, Basophils (%) (Auto) 0.1, Neutrophils # (Auto) 10.32, Lymphocytes # (Auto) 1.31, Monocytes # (Auto) 0.82, Eosinophils # (Auto) 0.00, Basophils # (Auto) 0.01 01/08/17 04:25 Test 01/08/17 04:25 01/08/17 04:50 White Blood Count 12.51 K/uL (4.8-10.8) Red Blood Count 4.63 M/uL (4.2-5.4) Hemoglobin 12.9 g/dL (12.0-16.0) Hematocrit 37.3 % (37-47) Mean Corpuscular Volume 80.6 fL (80-100) Mean Corpuscular Hemoglobin 27.9 pg (25-34) Mean Corpuscular Hemoglobin Concent 34.6 g/dl (32-36) Platelet Count 241 K/uL (130-400) Mean Platelet Volume 9.2 fL (7.4-10.4) Neutrophils (%) (Auto) 82.4 % Lymphocytes (%) (Auto) 10.5 % Monocytes (%) (Auto) 6.6 % Eosinophils (%) (Auto) 0.0 % Basophils (%) (Auto) 0.1 % Neutrophils # (Auto) 10.32 K/uL (1.4-6.5) Lymphocytes # (Auto) 1.31 K/uL (1.2-3.4) Monocytes # (Auto) 0.82 K/uL (0.11-0.59) Eosinophils # (Auto) 0.00 K/uL (0-0.5) Basophils # (Auto) 0.01 K/uL (0-0.2) RDW Standard Deviation 44.6 fL (36.4-46.3) RDW Coefficient of Variation 15.4 % (11.5-14.5) Immature Granulocyte % (Auto) 0.4 % Immature Granulocyte # (Auto) 0.05 K/uL (0.00-0.02) Anion Gap 9.0 mmol/L (3-11) Est Creatinine Clear Calc Drug Dose 40.9 ml/min Estimated GFR () 50.2 Estimated GFR (Non- 43.3 BUN/Creatinine Ratio 10.3 (10-20) Calcium Level 8.9 mg/dl (8.5-10.1) Magnesium Level 1.7 mg/dl (1.8-2.4) Total Bilirubin 0.7 mg/dl (0.2-1) Direct Bilirubin 0.2 mg/dl (0-0.2) Aspartate Amino Transf (AST/SGOT) 20 U/L (15-37) Alanine Aminotransferase (ALT/SGPT) 17 U/L (12-78) Alkaline Phosphatase 120 U/L (45-117) Total Creatine Kinase 299 U/L (26-192) Creatine Kinase MB 6.3 ng/ml (0.5-3.6) Creatine Kinase MB Ratio 2.1 (0-3.0) Troponin I < 0.015 ng/ml (0-0.045) Total Protein 7.4 gm/dl (6.4-8.2) Albumin 3.9 gm/dl (3.4-5.0) Lipase 157 U/L (73-393) Thyroid Stimulating Hormone (TSH) 0.780 uIu/ml (0.300-4.500) Urine Color YELLOW Urine Appearance CLEAR (CLEAR) Urine pH 5.5 (4.5-7.5) Urine Specific [place] 1.042 (1.000-1.030) Urine Protein NEG (NEG) Urine Glucose (UA) NEG (NEG) Urine Ketones TRACE (NEG) Urine Occult Blood NEG (NEG) Urine Nitrite NEG (NEG) Urine Bilirubin NEG (NEG) Urine Urobilinogen NEG (NEG) Urine Leukocyte Esterase TRACE (NEG) Urine WBC (Auto) /hpf (0-5) Urine RBC (Auto) /hpf (0-4) Urine Hyaline Casts (Auto) /lpf (0-5) Urine Epithelial Cells (Auto) /lpf (0-5) Urine Bacteria (Auto) (NEG) Medications Administered Medications (Trade) Dose Ordered Sig/Anusha Route Start Time Stop Time Status Last Admin Dose Admin Sodium Chloride 500 ml @ 999 mls/hr Q31M STAT IV 01/08/17 04:09 01/08/17 04:39 DC 01/08/17 04:09 999 MLS/HR Sodium Chloride 1,000 ml @ 125 mls/hr Q8H STAT IV 01/08/17 04:09 01/08/17 05:03 DC 01/08/17 04:17 125 MLS/HR Potassium Chloride (Klor-Con M10) 40 meq NOW STAT PO 01/08/17 04:58 01/08/17 05:00 DC 01/08/17 05:27 40 MEQ Magnesium Sulfate (Magnesium Sulfate) 1 gm NOW STAT IV 01/08/17 04:58 01/08/17 05:00 DC 01/08/17 05:26 1 GM Promethazine HCl 25 mg/Sodium Chloride 51 ml @ 204 mls/hr NOW STAT IV 01/08/17 04:58 01/08/17 05:12 DC 01/08/17 05:26 204 MLS/HR Sodium Chloride 1,000 ml @ 75 mls/hr [id number] STAT IV 01/08/17 05:02 01/08/17 18:21 01/08/17 05:27 75 MLS/HR ED Course Prior records/ancillary studies reviewed. Triage Nursing notes reviewed. Additional history obtained from EMS. The patient's history was concerning for abdominal pain. Differential diagnosis: Etiologies such as diarrheal illness, C. difficile, rhabdomyolysis, appendicitis , diverticulitis, PUD, biliary pathology, UTI, pancreatitis, obstruction, mesenteric ischemia, aortic pathology, infections, inflammatory bowel disease, renal colic, as well as others were entertained. Physical examination findings: As above. ER treatment provided: NSS, potassium, magnesium, Phenergan On reassessment the patient felt better. Diagnostics interpreted by me: ECG: Poor baseline, ventricular paced rhythm with a left bundle branch block with no acute ST-T wave changes with ventricular rate of 79. Impression Left bundle branch block that is ventricular paced interpreted by myself The labs revealed leukocytosis, hypokalemia, hypomagnesemia, hyperglycemia without DKA, creatine 1.3 Imaging studies: Chest x-ray with pacemaker present, no acute consolidation, pneumothorax or free air per my interpretation Shoulder x-ray with no fracture, effusion or dislocation per my interpretation Consultation: A consultation was placed with . The case was discussed and diagnostics were reviewed. The patient was evaluated in the ER for further treatment. Exam and history seem consistent with fatigue, abdominal pain and diarrhea. Patient was extremely weak. She has not been sleeping. She'll be evaluated by medicine for possible admission. Patient states she did not fill comfortable going home as she was too weak to walk and is requesting admission or observation. I did consult medicine. By the evaluation outlined above emergent etiologies such as appendicitis, diverticulitis, PUD, biliary pathology, pancreatitis, obstruction, mesenteric ischemia, aortic pathology, infections, inflammatory bowel disease, renal colic , as well as others were deemed relatively unlikely. The pt informed about the findings as listed above. All questions were answered and pleased with the treatment. Case reviewed with my attending. Medical Decision As above Medication Reconcilliation Current Medication List: was personally reviewed by me Blood Pressure Screening Patient's blood pressure: Normal blood pressure Impression Primary Impression: Abdominal pain Additional Impressions: Hypomagnesemia Hypokalemia Diarrhea Weakness Departure Information Dispostion Being Evaluated By Hospitalist Condition FAIR Referrals Adan Christopher M.D. (MEDICAL) (PCP) Patient Instructions My [facility] Problem Qualifiers Primary Impression: Abdominal pain Abdominal location: generalized Qualified Codes: R10.84 - Generalized abdominal pain
--- NOTE | 2017-01-08 06:45 | EMERGENCY ROOM VISIT NOTE ---
ED Visit Note First contact with patient: 04:06 Patient seen with the advanced doctor of nursing practice, agree with workup patient will be evaluated by the hospitalist for admission due to her multiple complaints of weakness diarrhea possible cardiac event positive review of systems and currently states that she feels like she cannot go home Problem List Medical Problems: (1) Calculus of kidney and ureter Status: Resolved (2) Cardiomyopathy Permanent Comment: idiopathic echo 02/10/11 [facility] global hypokinesis, LVEF 20-25%, mural thrombus Status: Chronic (3) Chronic osteoarthritis Status: Chronic (4) Dyslipidemia Status: Chronic (5) Hypothyroidism Status: Chronic (6) Left bundle branch block Status: Chronic (7) left ventricular mural thrombus Permanent Comment: noted on echo 02/10/11 Status: Chronic (8) Mitral valve regurgitation Status: Chronic (9) Pulmonary hypertension Status: Chronic (10) s/p arthroscopy/meniscectomy right knee Permanent Comment: 2003 Status: Resolved (11) s/p cardiac catheterization Permanent Comment: 09/21/09 normal coronaries Status: Resolved (12) s/p colonoscopy Permanent Comment: 2008 internal hemorrhoids Status: Resolved (13) s/p EGD Permanent Comment: 03/22/11 [facility] gastritis Status: Resolved (14) s/p hysterectomy Status: Resolved (15) s/p ORIF right humerus fracture Status: Resolved (16) s/p pacemaker insertion Permanent Comment: 03/26/10 Dr. Wallace [facility] Status: Resolved (17) s/p placement AICD Status: Resolved (18) s/p sinus surgery Status: Resolved (19) s/p ROBYN left Permanent Comment: 08/14/11 Dr. Butcher [facility] Status: Resolved (20) s/p ROBYN right Permanent Comment: 05/09/11 Dr. Butcher [facility] Status: Resolved (21) Systolic heart failure Permanent Comment: LVEF 20-25% by echo 2010 Status: Chronic Current/Historical Medications Scheduled Home O2 Therapy (Oxygen), 2 LITERS NA HS&PRN Lisinopril (Lisinopril), 2.5 MG PO QPM Metoprolol Succinate (Toprol Xl), 100 MG PO BID Pantoprazole (Protonix), 40 MG PO BID Spironolactone (Spironolactone), 25 MG PO DAILY Torsemide (Torsemide), 1 TAB PO BID Travoprost (Travatan Z), 1 DROP OPB HS Warfarin Sod (Jantoven), 5 MG PO QPM Scheduled PRN Alprazolam (Xanax), 0.5-1 MG PO QID PRN for STRESS Allergies Coded Allergies: Cefazolin (Verified Allergy, Severe, ANAPHYLAXIS, 01/08/17) Phenytoin (Verified Allergy, Intermediate, HIVES, 01/08/17) PER ROUTINE PREOP ORDERS [id number] Diphenhydramine (Verified Allergy, Mild, HAS OPPOSITE EFFECTS, 01/08/17) Zolpidem (Verified Allergy, Mild, HAS OPPOSITE EFFECTS, 01/08/17) Ciprofloxacin (Verified Allergy, Unknown, UNKNOWN, 01/08/17) Clindamycin (Verified Allergy, Unknown, UNKNOWN, 01/08/17) Fentanyl (Verified Allergy, Unknown, HAS OPPOSITE EFFECTS, 01/08/17) Ivabradine (Unverified Allergy, Unknown, RASH/DEPLETED POTASSIUM IN [place]ODY , 01/08/17) Tramadol (Verified Adverse Reaction, Intermediate, SEIZURE, 01/08/17) PER ROUTINE PRE-OP ORDERS [id number] Vital Signs Date Time Temp Pulse Resp B/P (MAP) Pulse Ox O2 Delivery O2 Flow Rate FiO2 01/08/17 05:25 78 22 117/57 97 01/08/17 04:13 96 Room Air 01/08/17 04:13 96 Room Air 01/08/17 04:05 93 01/08/17 04:04 36.7 85 20 100/73 96 Room Air Laboratory Results 01/08/17 04:25 Red Blood Count 4.63, Mean Corpuscular Volume 80.6, Mean Corpuscular Hemoglobin 27.9, Mean Corpuscular Hemoglobin Concent 34.6, Mean Platelet Volume 9.2, Neutrophils (%) (Auto) 82.4, Lymphocytes (%) (Auto) 10.5, Monocytes (%) (Auto) 6.6, Eosinophils (%) (Auto) 0.0, Basophils (%) (Auto) 0.1, Neutrophils # (Auto) 10.32, Lymphocytes # (Auto) 1.31, Monocytes # (Auto) 0.82, Eosinophils # (Auto) 0.00, Basophils # (Auto) 0.01 01/08/17 04:25 Test 01/08/17 04:25 01/08/17 04:50 White Blood Count 12.51 K/uL (4.8-10.8) Red Blood Count 4.63 M/uL (4.2-5.4) Hemoglobin 12.9 g/dL (12.0-16.0) Hematocrit 37.3 % (37-47) Mean Corpuscular Volume 80.6 fL (80-100) Mean Corpuscular Hemoglobin 27.9 pg (25-34) Mean Corpuscular Hemoglobin Concent 34.6 g/dl (32-36) Platelet Count 241 K/uL (130-400) Mean Platelet Volume 9.2 fL (7.4-10.4) Neutrophils (%) (Auto) 82.4 % Lymphocytes (%) (Auto) 10.5 % Monocytes (%) (Auto) 6.6 % Eosinophils (%) (Auto) 0.0 % Basophils (%) (Auto) 0.1 % Neutrophils # (Auto) 10.32 K/uL (1.4-6.5) Lymphocytes # (Auto) 1.31 K/uL (1.2-3.4) Monocytes # (Auto) 0.82 K/uL (0.11-0.59) Eosinophils # (Auto) 0.00 K/uL (0-0.5) Basophils # (Auto) 0.01 K/uL (0-0.2) RDW Standard Deviation 44.6 fL (36.4-46.3) RDW Coefficient of Variation 15.4 % (11.5-14.5) Immature Granulocyte % (Auto) 0.4 % Immature Granulocyte # (Auto) 0.05 K/uL (0.00-0.02) Anion Gap 9.0 mmol/L (3-11) Est Creatinine Clear Calc Drug Dose 40.9 ml/min Estimated GFR () 50.2 Estimated GFR (Non- 43.3 BUN/Creatinine Ratio 10.3 (10-20) Calcium Level 8.9 mg/dl (8.5-10.1) Magnesium Level 1.7 mg/dl (1.8-2.4) Total Bilirubin 0.7 mg/dl (0.2-1) Direct Bilirubin 0.2 mg/dl (0-0.2) Aspartate Amino Transf (AST/SGOT) 20 U/L (15-37) Alanine Aminotransferase (ALT/SGPT) 17 U/L (12-78) Alkaline Phosphatase 120 U/L (45-117) Total Creatine Kinase 299 U/L (26-192) Creatine Kinase MB 6.3 ng/ml (0.5-3.6) Creatine Kinase MB Ratio 2.1 (0-3.0) Troponin I < 0.015 ng/ml (0-0.045) Total Protein 7.4 gm/dl (6.4-8.2) Albumin 3.9 gm/dl (3.4-5.0) Lipase 157 U/L (73-393) Thyroid Stimulating Hormone (TSH) 0.780 uIu/ml (0.300-4.500) Urine Color YELLOW Urine Appearance CLEAR (CLEAR) Urine pH 5.5 (4.5-7.5) Urine Specific [place] 1.042 (1.000-1.030) Urine Protein NEG (NEG) Urine Glucose (UA) NEG (NEG) Urine Ketones TRACE (NEG) Urine Occult Blood NEG (NEG) Urine Nitrite NEG (NEG) Urine Bilirubin NEG (NEG) Urine Urobilinogen NEG (NEG) Urine Leukocyte Esterase TRACE (NEG) Urine WBC (Auto) /hpf (0-5) Urine RBC (Auto) /hpf (0-4) Urine Hyaline Casts (Auto) /lpf (0-5) Urine Epithelial Cells (Auto) /lpf (0-5) Urine Bacteria (Auto) (NEG) Urine RBC 0-4 /hpf (0-4) Urine WBC 1-5 /hpf (0-5) Urine Epithelial Cells 20-30 /lpf (0-5) Urine Bacteria NEG (NEG) Medications Administered Medications (Trade) Dose Ordered Sig/Anusha Route Start Time Stop Time Status Last Admin Dose Admin Sodium Chloride 500 ml @ 999 mls/hr Q31M STAT IV 01/08/17 04:09 01/08/17 04:39 DC 01/08/17 04:09 999 MLS/HR Sodium Chloride 1,000 ml @ 125 mls/hr Q8H STAT IV 01/08/17 04:09 01/08/17 05:03 DC 01/08/17 04:17 125 MLS/HR Potassium Chloride (Klor-Con M10) 40 meq NOW STAT PO 01/08/17 04:58 01/08/17 05:00 DC 01/08/17 05:27 40 MEQ Magnesium Sulfate (Magnesium Sulfate) 1 gm NOW STAT IV 01/08/17 04:58 01/08/17 05:00 DC 01/08/17 05:26 1 GM Promethazine HCl 25 mg/Sodium Chloride 51 ml @ 204 mls/hr NOW STAT IV 01/08/17 04:58 01/08/17 05:12 DC 01/08/17 05:26 204 MLS/HR Sodium Chloride 1,000 ml @ 75 mls/hr [id number] STAT IV 01/08/17 05:02 01/08/17 18:21 01/08/17 05:27 75 MLS/HR Departure Information Impression Primary Impression: Abdominal pain Additional Impressions: Diarrhea Weakness Hypokalemia Hypomagnesemia Dispostion Being Evaluated By Hospitalist Condition FAIR Referrals Adan Christopher M.D. (MEDICAL) (PCP) Patient Instructions [facility] Problem Qualifiers
[2017-01-08] MEDS ORDERED: SODIUM CHLORIDE 0.9% 1000ML 1,000 ML IV SCH (07:15)
--- NOTE | 2017-01-08 07:50 | DIAGNOSTIC IMAGING REPORT ---
ABDOMEN AND PELVIS CT WITH IV CONTRAST CT DOSE: 350.55 mGy.cm HISTORY: Lower abdominal pain. TECHNIQUE: Multiaxial CT images of the abdomen and pelvis were performed following the use of intravenous contrast. A dose lowering technique was utilized adhering to the principles of ALARA. COMPARISON STUDY: Abdomen and pelvis CT 05/03/2016. FINDINGS: Bibasilar linear densities likely represent subsegmental atelectasis. Pacemaker wires are noted. Bilateral total hip arthroplasties. This obscures the deep pelvic structures. Old left pubic ring fracture. Old, healed left rib fractures. Near nondiagnostic evaluation of the bladder. There may be a small urachal diverticulum. Hysterectomy. No pelvic free fluid. No bowel wall thickening or obstruction. Normal appendix. No retroperitoneal lymphadenopathy. A few bilateral renal hypodense lesions. The majority of these are subcentimeter in size and too small to characterize. Dominant lesion in the right kidney measures 2.2 cm and is consistent with a cyst. No hydronephrosis. The adrenal glands, spleen, pancreas, gallbladder, and liver are unremarkable. IMPRESSION: 1. No bowel wall thickening or obstruction. 2. Normal appendix. 3. No hydronephrosis. 4. Suboptimal evaluation of the deep pelvic structures due to the bilateral total hip arthroplasties. 5. Suggestion of a small urachal diverticulum. Electronically signed by: Serge Cabrera M.D. 01/08/2017 7:49 AM Dictated Date/Time: 01/08/2017 7:43 AM
[2017-01-08 07:54] LABS: INR 3.9 (0.9-1.1); PROTHROMBIN TIME (PATIENT) 44.5 SECONDS (9.0-12.0)
[2017-01-08] MEDS ORDERED: IV FLUIDS COMPLETED PRN (08:00)
--- NOTE | 2017-01-08 08:05 | History and Physical ---
History & Physical Date & Time of Service: Jan 08, 2017 at 07:51 Chief Complaint: General Illness/Diarrhea Primary Care Physician: Adan Christopher M.D. (MEDICAL) History of Present Illness Source: patient, clinic records, hospital records 66 year old female with history of Ischemic Cardiomyopathy, EF <20% s/p AICD, Atrial Flutter on coumadin, presenting with weakness. Patient states she was doing fine until about 1 week ago when started to have diarrhea, >5x a day, associated with generalized abdominal discomfort, and occasional hematochezia. She also has poor oral intake, and was still taking her diuretics. Last night, patient was talking to her friend on the phone and states she cannot recall what exactly happened after. She reports EMS came to her apartment last night, and thinks her friend may have called them to check on her. Patient states her left lower lip is hurting, also has some left sided headache. She also reports occasional palpitations for the past few days. On exam, patient is oriented x 3, but appears anxious. Denies dizziness, nausea, chest pain, does have dyspnea on exertion. No active abdominal pain, nausea/vomiting. Denies other symptoms. Past Medical/Surgical History Medical Problems: (1) Calculus of kidney and ureter Status: Resolved (2) Cardiomyopathy Permanent Comment: idiopathic echo 02/10/11 [facility] global hypokinesis, LVEF 20-25%, mural thrombus Status: Chronic (3) Chronic osteoarthritis Status: Chronic (4) Dyslipidemia Status: Chronic (5) Hypothyroidism Status: Chronic (6) Left bundle branch block Status: Chronic (7) left ventricular mural thrombus Permanent Comment: noted on echo 02/10/11 Status: Chronic (8) Mitral valve regurgitation Status: Chronic (9) Pulmonary hypertension Status: Chronic (10) s/p arthroscopy/meniscectomy right knee Permanent Comment: 2003 Status: Resolved (11) s/p cardiac catheterization Permanent Comment: 09/21/09 normal coronaries Status: Resolved (12) s/p colonoscopy Permanent Comment: 2008 internal hemorrhoids Status: Resolved (13) s/p EGD Permanent Comment: 03/22/11 [facility] gastritis Status: Resolved (14) s/p hysterectomy Status: Resolved (15) s/p ORIF right humerus fracture Status: Resolved (16) s/p pacemaker insertion Permanent Comment: 03/26/10 [place]. [place] [facility]: Resolved (17) s/p placement AICD Status: Resolved (18) s/p sinus surgery Status: Resolved (19) s/p ROBYN left Permanent Comment: 08/14/11 Dr. Butcher [facility] Status: Resolved (20) s/p ROBYN right Permanent Comment: 05/09/11 Dr. Butcher [facility] Status: Resolved (21) Systolic heart failure Permanent Comment: LVEF 20-25% by echo 2010 Status: Chronic Family History FH: breast cancer SISTER FH: lung disease FATHER Social History Smoking Status: Never Smoker Drug Use: none Marital Status: Housing status: lives alone Occupational Status: disabled Immunizations History of Influenza Vaccine: No History of Tetanus Vaccine?: Yes Tetanus Immunization Date: Mar 21, 2005 History of Pneumococcal: Yes Pneumococcal Date: May 09, 2009 History of Hepatitis B Vaccine: Yes Multi-Drug Resistant Organisms History of MDRO: No Allergies Coded Allergies: Cefazolin (Verified Allergy, Severe, ANAPHYLAXIS, 01/08/17) Phenytoin (Verified Allergy, Intermediate, HIVES, 01/08/17) PER ROUTINE PREOP ORDERS [id number] Diphenhydramine (Verified Allergy, Mild, HAS OPPOSITE EFFECTS, 01/08/17) Zolpidem (Verified Allergy, Mild, HAS OPPOSITE EFFECTS, 01/08/17) Ciprofloxacin (Verified Allergy, Unknown, UNKNOWN, 01/08/17) Clindamycin (Verified Allergy, Unknown, UNKNOWN, 01/08/17) Fentanyl (Verified Allergy, Unknown, HAS OPPOSITE EFFECTS, 01/08/17) Ivabradine (Unverified Allergy, Unknown, RASH/DEPLETED POTASSIUM IN BOODY , 01/08/17) Tramadol (Verified Adverse Reaction, Intermediate, SEIZURE, 01/08/17) PER ROUTINE PRE-OP ORDERS [id number] Home Medications Scheduled Home O2 Therapy (Oxygen), 2 LITERS NA HS&PRN Lisinopril (Lisinopril), 2.5 MG PO QPM Metoprolol Succinate (Toprol Xl), 100 MG PO BID Pantoprazole (Protonix), 40 MG PO BID Spironolactone (Spironolactone), 25 MG PO DAILY Torsemide (Torsemide), 1 TAB PO BID Travoprost (Travatan Z), 1 DROP OPB HS Warfarin Sod (Jantoven), 5 MG PO QPM Scheduled PRN Alprazolam (Xanax), 0.5-1 MG PO QID PRN for STRESS Review of Systems Constitutional- no fever; no weight loss Eyes- no acute visual changes ENT- no sinus drainage; no pharyngitis Pulmonary- no cough, no wheezing, no shortness of breath Cardiac- no chest pain,(+) palpitations, no orthopnea, no dependent edema GI- (+) as noted above - no dysuria, no hematuria Musculoskeletal- no arthralgias, no myalgias Derm- no rashes, no new skin lesions, no changing skin lesions Hematologic- no unusual bruising, no unusual bleeding Lymphatics- no adenopathy Endocrine- no polyuria or polydipsia; no heat or cold intolerance Neuro- no headaches, no focal neurologic symptoms Psych- no anxiety, no depression Physical Exam Vital Signs Date Time Temp Pulse Resp B/P (MAP) Pulse Ox O2 Delivery O2 Flow Rate FiO2 01/08/17 05:25 78 22 117/57 97 01/08/17 04:13 96 Room Air 01/08/17 04:13 96 Room Air 01/08/17 04:05 93 01/08/17 04:04 36.7 85 20 100/73 96 Room Air General Appearance: WD/WN, no apparent distress, + pertinent finding (anxious, appeared tired) Head: normocephalic, atraumatic Eyes: normal inspection, EOMI, sclerae normal ENT: normal ENT inspection, hearing grossly normal, pharynx normal Neck: supple, no adenopathy, thyroid normal, no JVD, trachea midline Respiratory/Chest: chest non-tender, lungs clear, normal breath sounds, no respiratory distress, no accessory muscle use Cardiovascular: regular rate, rhythm, no edema, no JVD, no murmur Abdomen/GI: normal bowel sounds, non tender, soft, no organomegaly Back: normal inspection, no CVA tenderness Extremities/Musculoskelatal: normal inspection, no calf tenderness, no pedal edema, normal range of motion Neurologic/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: 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, no motor/sensory deficits, alert, normal mood/affect, oriented x 3 Skin: normal color, warm/dry, no rash Lymphatic: no adenopathy Diagnostics Laboratory Results Results Past 24 Hours Test 01/08/17 04:25 01/08/17 04:50 Range/Units White Blood Count 12.51 4.8-10.8 K/uL Red Blood Count 4.63 4.2-5.4 M/uL Hemoglobin 12.9 12.0-16.0 g/dL Hematocrit 37.3 37-47 % Mean Corpuscular Volume 80.6 80-100 fL Mean Corpuscular Hemoglobin 27.9 25-34 pg Mean Corpuscular Hemoglobin Concent 34.6 32-36 g/dl Platelet Count 241 130-400 K/uL Mean Platelet Volume 9.2 7.4-10.4 fL Neutrophils (%) (Auto) 82.4 % Lymphocytes (%) (Auto) 10.5 % Monocytes (%) (Auto) 6.6 % Eosinophils (%) (Auto) 0.0 % Basophils (%) (Auto) 0.1 % Neutrophils # (Auto) 10.32 1.4-6.5 K/uL Lymphocytes # (Auto) 1.31 1.2-3.4 K/uL Monocytes # (Auto) 0.82 0.11-0.59 K/uL Eosinophils # (Auto) 0.00 0-0.5 K/uL Basophils # (Auto) 0.01 0-0.2 K/uL RDW Standard Deviation 44.6 36.4-46.3 fL RDW Coefficient of Variation 15.4 11.5-14.5 % Immature Granulocyte % (Auto) 0.4 % Immature Granulocyte # (Auto) 0.05 0.00-0.02 K/uL Sodium Level 132 136-145 mmol/L Potassium Level 2.9 3.5-5.1 mmol/L Chloride Level 94 98-107 mmol/L Carbon Dioxide Level 29 21-32 mmol/L Anion Gap 9.0 3-11 mmol/L Blood Urea Nitrogen 13 7-18 mg/dl Creatinine 1.30 0.60-1.20 mg/dl Est Creatinine Clear Calc Drug Dose 40.9 ml/min Estimated GFR () 50.2 Estimated GFR (Non- 43.3 BUN/Creatinine Ratio 10.3 10-20 Random Glucose 114 70-99 mg/dl Calcium Level 8.9 8.5-10.1 mg/dl Magnesium Level 1.7 1.8-2.4 mg/dl Total Bilirubin 0.7 0.2-1 mg/dl Direct Bilirubin 0.2 0-0.2 mg/dl Aspartate Amino Transf (AST/SGOT) 20 15-37 U/L Alanine Aminotransferase (ALT/SGPT) 17 12-78 U/L Alkaline Phosphatase 120 45-117 U/L Total Creatine Kinase 299 26-192 U/L Creatine Kinase MB 6.3 0.5-3.6 ng/ml Creatine Kinase MB Ratio 2.1 0-3.0 Troponin I < 0.015 0-0.045 ng/ml Total Protein 7.4 6.4-8.2 gm/dl Albumin 3.9 3.4-5.0 gm/dl Lipase 157 73-393 U/L Thyroid Stimulating Hormone (TSH) 0.780 0.300-4.500 uIu/ml Urine Color YELLOW Urine Appearance CLEAR CLEAR Urine pH 5.5 4.5-7.5 Urine Specific [place] 1.042 1.000-1.030 Urine Protein NEG NEG Urine Glucose (UA) NEG NEG Urine Ketones TRACE NEG Urine Occult Blood NEG NEG Urine Nitrite NEG NEG Urine Bilirubin NEG NEG Urine Urobilinogen NEG NEG Urine Leukocyte Esterase TRACE NEG Urine WBC (Auto) 0-5 /hpf Urine RBC (Auto) 0-4 /hpf Urine Hyaline Casts (Auto) 0-5 /lpf Urine Epithelial Cells (Auto) 0-5 /lpf Urine Bacteria (Auto) NEG Urine RBC 0-4 0-4 /hpf Urine WBC 1-5 0-5 /hpf Urine Epithelial Cells 20-30 0-5 /lpf Urine Bacteria NEG NEG Diagnostic Radiology CLINICAL HISTORY: CHEST PAIN pain COMPARISON STUDY: 11/11/2016 FINDINGS: Mild stable cardia megaly. Permanent bipolar cardiac pacemaker. Mild chronic left basilar interstitial change. Mild chronic elevation left hemidiaphragm. Lungs otherwise are clear. IMPRESSION: Chronic and postoperative change. No acute process. EKG HR 79, paced rhythm Impression Assessment and Plan 66 year old female with history of Ischemic Cardiomyopathy, EF <20% s/p AICD, Atrial Flutter on coumadin, presenting with weakness. DIARRHEA - check stool for culture and C diff - patient allergic to Cipro and has prolonged QT - gentle IV fluids- 1 L NSS at 60cc/hr HEMATOCHEZIA - Hg 12 - check fecal occult blood - may need to hold coumadin if (+) hematochezia EPISODE OF ALTERED MENTAL STATUS - poor recollection of events last night - likely from Dehydration - ff up CT head EEG ordered Neuro checks ACUTE RENAL FAILURE - likely pre renal from diarrhea - gently IV fluids HYPO K AND MG - from GI losses - PO K and IV Mg given - repeat K and Mg at 830am CHF, CARDIOMYOPATHY EF <20% S/P AICD - on the dry side - gently IV fluids Torsemide and Spironolactone held - AICD interrogation ordered ATRIAL FLUTTER - INR pending - usually on coumadin 5mg po daily on Metoprolol DVT PROPHYLAXIS - on coumadin FULL CODE PER PATIENT DISPOSITION will need PT/OT lives alone in her apartment VTE Prophylaxis VTE Risk Assessment Done? Y/N: Yes Risk Level: Moderate Given or contraindicated: Warfarin (Coumadin)
--- NOTE | 2017-01-08 08:45 | DIAGNOSTIC IMAGING REPORT ---
HEAD WITHOUT CONTRAST (CT) CLINICAL HISTORY: 66 years-old Female with r/o cva. Acute dizziness with altered mental status. Concern for acute stroke. TECHNIQUE: Multiple axial CT images of the head were obtained without contrast. A dose lowering technique was utilized adhering to the principles of ALARA. CT DOSE: 614.27 mGy.cm COMPARISON: CT head 08/07/2014. FINDINGS: No acute intracranial hemorrhage, midline shift, mass, large territorial ischemia or abnormal extra-axial collection. There is increased attenuation of the vasculature compatible with recent contrast-enhanced study. The calvarium is intact. There is evidence of prior bilateral maxillary antrostomy. Mild mucosal thickening is seen within the ethmoid air cells and left maxillary sinus. There is hypoplasia of the frontal sinuses. Soft tissues and orbits are unremarkable. IMPRESSION: No acute intracranial abnormality. The above report was generated using voice recognition software. It may contain grammatical, syntax or spelling errors. Electronically signed by: Deon Casillas M.D. 01/08/2017 8:44 AM Dictated Date/Time: 01/08/2017 8:40 AM
[2017-01-08 09:07] VITALS: BP 114/73; PULSE 75; TEMP 37.5; O2SAT 94; Ht 167.6 cm; Wt 70.9 kg
[2017-01-08] MEDS: ALPRAZOLAM 0.5 MG TAB PO PRN ×2 (09:27→19:43)
[2017-01-08] MEDS: PANTOprazole SOD 40 MG TAB PO SCH ×2 (09:31→19:44)
[2017-01-08] MEDS: METOPROLOL SUCC 50MG EXT REL TAB PO SCH ×2 (09:31→21:00)
[2017-01-08 10:12] LABS: BUN/CREATININE RATIO 10.6 (10-20); CALCIUM 8.9 mg/dl (8.5-10.1); CREATININE 0.97 mg/dl (0.60-1.20); MAGNESIUM 2.4 mg/dl (1.8-2.4); POTASSIUM 2.7 mmol/L (3.5-5.1)
[2017-01-08] MEDS: POTASSIUM CHLR 10 MEQ / WTR 10 MEQ in PREMIXED WATER 100 ML IV SCH ×2 (10:51→12:13)
[2017-01-08 12:34] VITALS: BP 101/62; PULSE 75; TEMP 36.7; O2SAT 96
[2017-01-08 15:36] VITALS: BP 90/55; PULSE 74; TEMP 36.8; O2SAT 95
[2017-01-08] MEDS: TRAVOPROST Z 0.004% OPH SOLN 2.5 ML BTL OPB SCH (19:44)
[2017-01-08 20:17] VITALS: BP 95/61; PULSE 85; TEMP 37; O2SAT 92
[2017-01-08] MEDS: LISINOPRIL 5 MG TAB PO SCH (21:00)
[2017-01-08 21:31] VITALS: BP 94/56
[2017-01-08] MEDS: ACETAMINOPHEN 325 MG TAB PO PRN (23:13)
[2017-01-09] VITALS (7 sets, daily range): BP systolic 94–109; BP diastolic 59–68; PULSE 70–80; TEMP 36.8–37; O2SAT 92–95
[2017-01-09] MEDS ORDERED: HYDROCODONE/ACETAMOPHEN 5/325MG TAB PO STA (00:41)
[2017-01-09] MEDS: ALPRAZOLAM 0.5 MG TAB PO PRN ×2 (03:54→18:00)
[2017-01-09 06:57] LABS: BASO % 0.6 %; BASO ABS # 0.03 K/uL (0-0.2); COMPLETE YES; EOS % 2.4 %; HEMATOCRIT 32.1 % (37-47); IG% 0.2 %; LYMPH % 35.8 %; LYMPH ABS # 1.92 K/uL (1.2-3.4); MEAN CELL VOLUME 82.7 fL (80-100); MEAN CORPUSCULAR HEMOGLOBIN 27.6 pg (25-34); MEAN CORPUSCULAR HGB CONC 33.3 g/dl (32-36); MEAN PLATELET VOLUME 9.6 fL (7.4-10.4); MONO % 9.3 %; NEUT % 51.7 %; PLATELET COUNT 180 K/uL (130-400); RED BLOOD COUNT 3.88 M/uL (4.2-5.4); WHITE BLOOD COUNT 5.36 K/uL (4.8-10.8)
[2017-01-09 07:27] LABS: INR 3.8 (0.9-1.1); PROTHROMBIN TIME (PATIENT) 42.8 SECONDS (9.0-12.0)
[2017-01-09 07:43] LABS: BUN/CREATININE RATIO 9.3 (10-20); CALCIUM 8.3 mg/dl (8.5-10.1); CREATININE 0.84 mg/dl (0.60-1.20); POTASSIUM 3.8 mmol/L (3.5-5.1)
[2017-01-09] MEDS: PANTOprazole SOD 40 MG TAB PO SCH ×2 (07:43→20:44)
[2017-01-09] MEDS: BUMETANIDE 1 MG TAB PO SCH ×2 (07:43→20:24)
[2017-01-09] MEDS: METOPROLOL SUCC 50MG EXT REL TAB PO SCH ×2 (07:44→20:23)
[2017-01-09] MEDS: SPIRONOLACTONE 25 MG TAB PO SCH ×2 (07:44→20:24)
--- NOTE | 2017-01-09 14:46 | CARDIOLOGY CONSULTATION ---
DATE OF CONSULTATION: 01/09/2017 CONSULTATION REQUESTED BY: Dr. Nair. REASON FOR CONSULTATION: Questionable syncopal event. HISTORY OF PRESENT ILLNESS: Ms. Washington is a very medically complex 66-year-old woman, who presented to [facility] on 01/08/2017 with a report of questionable loss of consciousness. The patient states that she has been having very bad diarrhea for the last 5 days. This is nothing new to her and it is caused by her ongoing irritable bowel syndrome; however, last evening, she was talking on a phone to a friend and she seemed to have trialed off. The next thing she knows she woke up with her friend at the bedside. At that point, they became concerned and brought her into the Emergency Department. Her pacemaker was interrogated and showed no arrhythmias. Upon presentation, she was significantly volume depleted and hypokalemic and hyponatremic. She was given IV fluids. Her diuretics were held and she is now improving. Her diarrhea is still coming and going, but not as bad as over the last several days. Otherwise, she denies any chest pain, shortness of breath, palpitations, lightheadedness, dizziness, syncope, or ICD firings. PAST SURGICAL HISTORY: 1. Cardiac catheterization in September 2009, showing normal coronary arteries. 2. Bi-V ICD placement initially with ventricular lead disabled due to diaphragmatic stimulation. 3. Left ventricular epicardial lead placement by left thoracotomy along with generator change in January 2016. 4. Colonoscopy. 5. Knee surgery. 6. Sinus surgery. 7. Abdominal hysterectomy. MEDICAL ILLNESSES: 1. Nonischemic cardiomyopathy, EF less than 20%. 2. History of ICD firings for appropriate ventricular fibrillation in the setting of profound hypokalemia. 3. Chronic resting sinus tachycardia. 4. Rectus sheath hematoma. 5. Anxiety. 6. Depression. FAMILY HISTORY: Noncontributory. SOCIAL HISTORY: Denies any alcohol, tobacco or recreational drug use. 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. She has 2 children. She is . REVIEW OF SYSTEMS: As per HPI, all other review of systems reviewed and negative at this time. ALLERGIES: 1. CEFAZOLIN. 2. CIPROFLOXIN. 3. CLINDAMYCIN. 4. DIPHENHYDRAMINE. 5. FENTANYL. 6. IVABRADINE. 7. PHENYTOIN. 8. TRAMADOL. 9. ZOLPIDEM. MEDICATIONS AN OUTPATIENT: 1. Lisinopril 2.5 mg daily. 2. Coumadin as directed by the Coumadin clinic. 3. Toprol-XL 100 mg b.i.d. 4. Spironolactone 25 mg daily. 5. Oxygen via nasal cannula. 6. Digoxin 0.125 mg daily on Mondays, Wednesdays and Fridays. 7. Torsemide 20 mg b.i.d. 8. Xanax as needed. PHYSICAL EXAMINATION: VITALS: Temperature 36.9, pulse 80, respiratory rate 12, and blood pressure 99/67. GENERAL: Awake, alert, and oriented x3 in no acute distress. HEENT: Normocephalic and atraumatic. Pupils equal, round, and reactive to light and accommodation. Extraocular muscles intact. Anicteric sclerae. Moist mucous membranes. NECK: No JVD and no bruit. CARDIOVASCULAR: Regular. Positive S4. Normal S1 and S2. No S3. No murmurs or rubs. PULMONARY: Clear to auscultation bilaterally. ABDOMEN: Bowel sounds x4, soft. No rebound, guarding, or tenderness. No organomegaly. EXTREMITIES: No clubbing, cyanosis or edema. +2 pedal pulses bilaterally. SKIN: Warm and dry. TEST RESULTS: A 12-lead EKG performed in the Emergency Department independently reviewed at this time shows an A sensed V paced rhythm. LABORATORY STUDIES OF SIGNIFICANCE: Initial sodium 132, potassium 2.9, BUN 13, and creatinine 1.3. CPK of 299. Troponin negative. INR 3.8. IMPRESSION: 1. Orthostatic syncope. 2. Ongoing diarrhea with significant volume loss. 3. Hyponatremia. 4. Hypokalemia. 5. History of nonischemic cardiomyopathy, EF less than 20%, status post BiV ICD placement. RECOMMENDATIONS: Ms. Washington was counseled that I do not see any cardiac component to her diarrhea nor to her orthostatic syncopal event. I agree with holding her diuretics for now. She has been given IV fluids and her electrolytes are improving. Luckily, she has not had any ICD firings with this. No other changes will be made at this time. She will continue on her Toprol-XL and lisinopril for now and her diuretics will be restarted based on her volume status.
--- NOTE | 2017-01-09 15:29 | Progress Note ---
Internal Med Progress Note Date of Service: Jan 09, 2017. Provider Documentation: SUBJECTIVE: The patient was seen and examined Admitted with possible postural Hypotension with fall and questionable seizure- no witness Has had Diarrhea OBJECTIVE: Vital Signs-as noted below Exam: General-no distress at rest Eyes-normal ENT-normal Neck-supple Lungs-clear to ausucltate bilaterally Heart-Regular,no murmur Abdomen-Benign,no masses,bowel sound present Extremities-Trace edema bilaterally Neuro-AAOx3 Generally weak Lab data as noted below. ASSESSMENT & PLAN: 66 year old female with history of Ischemic Cardiomyopathy, EF <20% s/p AICD, Atrial Flutter on Coumadin, presenting with weakness. DIARRHEA- - check stool for culture and C diff - patient allergic to Cipro and has prolonged QT - gentle IV fluids- 1 L NSS at 60cc/hr -diarrhea stopped -C Diff test-pending HEMATOCHEZIA - Hg 12 - check fecal occult blood - may need to hold Coumadin if (+) hematochezia -Likely from Hemorrhoids-patient admits to have Hemorrhoids EPISODE OF ALTERED MENTAL STATUS - poor recollection of events last night - likely from Dehydration and hypotension -doubt any seizure activity - ff up CT head-negative -EEG ordered-result pending -Neuro checks-no abnormality ACUTE RENAL FAILURE - likely pre renal from diarrhea - gently IV fluids -Normalized HYPO K AND MG - from GI losses - PO K and IV Mg given - repeat K and Mg at 830am -corrected CHF, CARDIOMYOPATHY EF <20% S/P AICD - on the dry side - gently IV fluids -Torsemide and Spironolactone held - AICD interrogation -Appreciate Cardiology evaluation ATRIAL FLUTTER - INR pending - usually on Coumadin 5mg po daily -on Metoprolol -No acute symptoms DVT PROPHYLAXIS - on Coumadin FULL CODE PER PATIENT DISPOSITION PT/OT Vital Signs: Date Time Temp Pulse Resp B/P (MAP) Pulse Ox O2 Delivery O2 Flow Rate FiO2 01/09/17 12:00 Room Air 01/09/17 11:56 36.9 80 16 99/67 (78) 93 Room Air 01/09/17 08:00 Room Air 01/09/17 07:39 36.9 78 18 109/67 (81) 92 Room Air 01/09/17 04:00 36.9 73 94/62 (73) 94 Room Air 01/09/17 04:00 94 Room Air 01/09/17 00:00 94 Room Air 01/09/17 00:00 36.9 75 97/59 (72) 94 Room Air 01/08/17 21:31 94/56 (69) 01/08/17 20:17 37.0 85 16 95/61 (72) 92 Room Air 01/08/17 20:00 Room Air 01/08/17 16:00 Room Air 01/08/17 15:36 36.8 74 16 90/55 (67) 95 Room Air Lab Results: Results Past 24 Hours Test 01/09/17 06:30 Range/Units White Blood Count 5.36 4.8-10.8 K/uL Red Blood Count 3.88 4.2-5.4 M/uL Hemoglobin 10.7 12.0-16.0 g/dL Hematocrit 32.1 37-47 % Mean Corpuscular Volume 82.7 80-100 fL Mean Corpuscular Hemoglobin 27.6 25-34 pg Mean Corpuscular Hemoglobin Concent 33.3 32-36 g/dl Platelet Count 180 130-400 K/uL Mean Platelet Volume 9.6 7.4-10.4 fL Neutrophils (%) (Auto) 51.7 % Lymphocytes (%) (Auto) 35.8 % Monocytes (%) (Auto) 9.3 % Eosinophils (%) (Auto) 2.4 % Basophils (%) (Auto) 0.6 % Neutrophils # (Auto) 2.77 1.4-6.5 K/uL Lymphocytes # (Auto) 1.92 1.2-3.4 K/uL Monocytes # (Auto) 0.50 0.11-0.59 K/uL Eosinophils # (Auto) 0.13 0-0.5 K/uL Basophils # (Auto) 0.03 0-0.2 K/uL RDW Standard Deviation 47.7 36.4-46.3 fL RDW Coefficient of Variation 16.2 11.5-14.5 % Immature Granulocyte % (Auto) 0.2 % Immature Granulocyte # (Auto) 0.01 0.00-0.02 K/uL Prothrombin Time 42.8 9.0-12.0 SECONDS Prothromb Time International Ratio 3.8 0.9-1.1 Sodium Level 143 136-145 mmol/L Potassium Level 3.8 3.5-5.1 mmol/L Chloride Level 109 98-107 mmol/L Carbon Dioxide Level 29 21-32 mmol/L Anion Gap 5.0 3-11 mmol/L Blood Urea Nitrogen 8 7-18 mg/dl Creatinine 0.84 0.60-1.20 mg/dl Est Creatinine Clear Calc Drug Dose 68.6 ml/min Estimated GFR () 85.1 Estimated GFR (Non- 73.4 BUN/Creatinine Ratio 9.3 10-20 Random Glucose 84 70-99 mg/dl Calcium Level 8.3 8.5-10.1 mg/dl
[2017-01-09] MEDS: LISINOPRIL 5 MG TAB PO SCH (20:24)
[2017-01-09] MEDS: TRAVOPROST Z 0.004% OPH SOLN 2.5 ML BTL OPB SCH (20:44)
[2017-01-09] MEDS: WARFARIN SOD 5 MG TAB PO SCH (20:44)
[2017-01-09] MEDS: ACETAMINOPHEN 325 MG TAB PO PRN (21:49)
[2017-01-10] VITALS (7 sets, daily range): BP systolic 70–128; BP diastolic 47–76; PULSE 70–85; TEMP 36.3–37.1; O2SAT 93–97
[2017-01-10] MEDS: ALPRAZOLAM 0.5 MG TAB PO PRN ×2 (03:51→15:55)
[2017-01-10 06:10] LABS: BASO % 0.5 %; BASO ABS # 0.03 K/uL (0-0.2); COMPLETE YES; EOS % 3.6 %; HEMATOCRIT 34.4 % (37-47); IG% 0.2 %; LYMPH ABS # 1.75 K/uL (1.2-3.4); MEAN CELL VOLUME 83.5 fL (80-100); MEAN CORPUSCULAR HEMOGLOBIN 26.7 pg (25-34); MEAN PLATELET VOLUME 9.7 fL (7.4-10.4); MONO % 9.1 %; NEUT % 56.6 %; PLATELET COUNT 191 K/uL (130-400); RED BLOOD COUNT 4.12 M/uL (4.2-5.4); WHITE BLOOD COUNT 5.84 K/uL (4.8-10.8)
[2017-01-10 06:50] LABS: BUN/CREATININE RATIO 16.3 (10-20); CALCIUM 8.6 mg/dl (8.5-10.1); CREATININE 0.8 mg/dl (0.60-1.20); POTASSIUM 3.1 mmol/L (3.5-5.1)
[2017-01-10] MEDS: PANTOprazole SOD 40 MG TAB PO SCH (08:30)
[2017-01-10] MEDS: BUMETANIDE 1 MG TAB PO SCH (08:31)
[2017-01-10] MEDS: METOPROLOL SUCC 50MG EXT REL TAB PO SCH (08:32)
[2017-01-10] MEDS ORDERED: POTASSIUM CHLORIDE 10 MEQ TABCR PO STA (09:36)
[2017-01-10] MEDS ORDERED: NSS + 20MEQ KCL 1000ML 1,000 ML IV SCH (09:45)
--- NOTE | 2017-01-10 10:10 | Cardiology Follow-Up ---
Subjective Subjective Date of Service: Jan 10, 2017. Pt evaluation today including: conversation w/ patient, physical exam, chart review, lab review, review of studies, review of inpatient medication list Additional Details: Pt seen and examined, states that she feels back to normal and would like to go home today. Denies cp, sob, palpitations, lightheadedness or dizziness. Tele reviewed: sinus rhythm without arrhythmia or significant ectopy Problem List Medical Problems: (1) Abdominal pain Status: Acute (2) Chest pain Status: Acute (3) Diarrhea Status: Acute (4) Dyspnea on effort Status: Acute (5) Hypomagnesemia Status: Acute (6) Hypomagnesemia Status: Acute (7) Tachycardia Status: Acute (8) Weakness Status: Acute Review of Systems Constitutional: + see HPI Respiratory: No see HPI, No cough, No sputum, No wheezing, No shortness of breath, No dyspnea on exertion, No dyspnea at rest, No hemoptysis, No problem reported Cardiac: No see HPI, No chest pain, No orthopnea, No PND, No edema, No claudication, No palpitations, No problem reported Objective Vital Signs Last Vital Signs Documentation Date Time Temp Pulse Resp B/P (MAP) Pulse Ox O2 Delivery O2 Flow Rate FiO2 01/10/17 08:00 Room Air 01/10/17 07:01 36.8 74 18 70/47 (25) 96 Physical Exam: General Appearance: WD/WN, no apparent distress Eyes: bilateral eyes normal inspection, bilateral eyes PERRL, bilateral eyes EOMI ENT: normal ENT inspection, hearing grossly normal, pharynx normal Neck: supple, no adenopathy, thyroid normal, no JVD, no carotid bruits, trachea midline Respiratory/Chest: chest non-tender, lungs clear, normal breath sounds, no respiratory distress, no accessory muscle use Cardiovascular: regular rate, rhythm, no edema, no JVD, no murmur, + gallop/S4 Abdomen: normal bowel sounds, non tender, soft, no organomegaly, no pulsatile mass Extremities: normal range of motion, non-tender, normal inspection, no pedal edema, no calf tenderness Neurologic/Psychiatric: 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 orthostatic syncope presumed in the setting of 5 days of diarrhea, continued diuretic usage and significant volume depletion no arrhythmia on device interrogation bp still on the low side no further diarrhea today would cont to hold diuretics and trinity for another 2 days then resume if patient is insistent on discharge would repeat bmp on Friday ok to d/c tele from cardiac standpoint
--- NOTE | 2017-01-10 12:34 | Progress Note ---
Internal Med Progress Note Date of Service: Jan 10, 2017. Provider Documentation: SUBJECTIVE: The patient was seen and examined Admitted with possible postural Hypotension with fall and questionable seizure- no witness Has had Diarrhea as an OP No more diarrhea Ambulating well and ready to be discharged Borderline low SBP this morning OBJECTIVE: Vital Signs-as noted below Exam: General-no distress at rest Eyes-normal ENT-normal Neck-supple Lungs-clear to ausucltate bilaterally Heart-Regular,no murmur Abdomen-Benign,no masses,bowel sound present Extremities-Trace edema bilaterally Neuro-AAOx3 Generally weak Lab data as noted below. ASSESSMENT & PLAN: 66 year old female with history of Ischemic Cardiomyopathy, EF <20% s/p AICD, Atrial Flutter on Coumadin, presenting with weakness. DIARRHEA- stopped spontaneously - check stool for culture and C diff - patient allergic to Cipro and has prolonged QT - gentle IV fluids- 1 L NSS at 60cc/hr -diarrhea stopped -C Diff test-never done HEMATOCHEZIA - Hg 12 - check fecal occult blood - may need to hold Coumadin if (+) hematochezia -Likely from Hemorrhoids-patient admits to have Hemorrhoids -No real issue EPISODE OF ALTERED MENTAL STATUS-resolved - poor recollection of events last night - likely from Dehydration and hypotension -doubt any seizure activity - ff up CT head-negative -EEG ordered-result pending -Neuro checks-no abnormality- ACUTE RENAL FAILURE - likely pre renal from diarrhea - gently IV fluids -Improved HYPO K AND MG - from GI losses - PO K and IV Mg given - repeat K and Mg at 830am -corrected CHF, CARDIOMYOPATHY EF <20% S/P AICD - on the dry side - gently IV fluids -Torsemide and Spironolactone held - AICD interrogation -Appreciate Cardiology evaluation -Hold Diuretics for the next 2 days ATRIAL FLUTTER - INR pending - usually on Coumadin 5mg po daily -on Metoprolol -No acute symptoms DVT PROPHYLAXIS - on Coumadin -INR 3.8 today -hold Coumadin today -follow up with the Coag clinic FULL CODE PER PATIENT DISPOSITION Patient is ambulating Will discharge home today Vital Signs: Date Time Temp Pulse Resp B/P (MAP) Pulse Ox O2 Delivery O2 Flow Rate FiO2 01/10/17 12:00 Room Air 01/10/17 11:29 36.6 70 18 109/71 (84) 97 Room Air 9/8/17 08:00 Room Air 01/10/17 07:01 36.8 74 18 70/47 (55) 96 Room Air 01/10/17 04:00 93 Room Air 01/10/17 03:43 37.1 74 17 95/54 (68) 93 Room Air 01/10/17 00:00 95 Room Air 01/09/17 23:47 37.0 70 17 95/62 (73) 95 Room Air 01/09/17 20:00 94 Room Air 01/09/17 20:00 36.8 79 95/61 (72) 94 Room Air 01/09/17 16:15 36.9 79 18 104/68 (80) 95 Room Air 01/09/17 16:00 Room Air Lab Results: Results Past 24 Hours Test 01/10/17 05:37 Range/Units White Blood Count 5.84 4.8-10.8 K/uL Red Blood Count 4.12 4.2-5.4 M/uL Hemoglobin 11.0 12.0-16.0 g/dL Hematocrit 34.4 37-47 % Mean Corpuscular Volume 83.5 80-100 fL Mean Corpuscular Hemoglobin 26.7 25-34 pg Mean Corpuscular Hemoglobin Concent 32.0 32-36 g/dl Platelet Count 191 130-400 K/uL Mean Platelet Volume 9.7 7.4-10.4 fL Neutrophils (%) (Auto) 56.6 % Lymphocytes (%) (Auto) 30.0 % Monocytes (%) (Auto) 9.1 % Eosinophils (%) (Auto) 3.6 % Basophils (%) (Auto) 0.5 % Neutrophils # (Auto) 3.31 1.4-6.5 K/uL Lymphocytes # (Auto) 1.75 1.2-3.4 K/uL Monocytes # (Auto) 0.53 0.11-0.59 K/uL Eosinophils # (Auto) 0.21 0-0.5 K/uL Basophils # (Auto) 0.03 0-0.2 K/uL RDW Standard Deviation 48.8 36.4-46.3 fL RDW Coefficient of Variation 16.1 11.5-14.5 % Immature Granulocyte % (Auto) 0.2 % Immature Granulocyte # (Auto) 0.01 0.00-0.02 K/uL Sodium Level 140 136-145 mmol/L Potassium Level 3.1 3.5-5.1 mmol/L Chloride Level 104 98-107 mmol/L Carbon Dioxide Level 29 21-32 mmol/L Anion Gap 7.0 3-11 mmol/L Blood Urea Nitrogen 13 7-18 mg/dl Creatinine 0.80 0.60-1.20 mg/dl Est Creatinine Clear Calc Drug Dose 66.5 ml/min Estimated GFR () 90.3 Estimated GFR (Non- 77.9 BUN/Creatinine Ratio 16.3 10-20 Random Glucose 109 70-99 mg/dl Calcium Level 8.6 8.5-10.1 mg/dl
[2017-01-10] MEDS: WARFARIN SOD 5 MG TAB PO SCH (15:11)
--- NOTE | 2017-01-10 15:24 | Discharge Instructions ---
Discharge Instructions Date of Service Jan 10, 2017. Admission Reason for Admission: Acute Renal Failure Discharge Discharge Diagnosis / Problem: Syncopal episode,Likely secondary to Orthostatic Hypotension,CMP Discharge Goals Goal(s): Prevent Disease Progression Activity Recommendations Activity Limitations: resume your previous activity . Instructions / Follow-Up Instructions / Follow-Up DR Christopher on on 01/15/17 at 1:45PM (check Electrolytes) and Dr Hernandez on 01/20/17 at 3:05 PM.Please keep appointment with coagulation clinic. Do note the Diuretics for the next 2 days.Do not take any Coumadin today and tomorrow. Current Hospital Diet Patient's current hospital diet: Low Lactose Diet, AHA Diet (Heart Healthy) Discharge Diet Recommended Diet: AHA Diet (Heart Healthy), Low Sodium Diet (2gm Na), Low Lactose Diet Fluid Restriction: 1500 ml (6 cups) Pending Studies Studies pending at discharge: no Medical Emergencies . Who to Call and When: Medical Emergencies: If at any time you feel your situation is an emergency, please call 911 immediately. . Non-Emergent Contact Non-Emergency issues call your: Primary Care Provider . Past History Medical & Surgical History: (1) CHF (congestive heart failure) (2) Diarrhea (3) Weakness (4) Acute renal failure (5) Hypokalemia (6) s/p placement AICD (7) s/p colonoscopy (8) s/p cardiac catheterization (9) left ventricular mural thrombus (10) Systolic heart failure (11) Pulmonary hypertension (12) Mitral valve regurgitation (13) Hypothyroidism (14) Cardiomyopathy . "Provider Documentation" section prepared by Vinay Bass. . VTE Core Measure Inpt VTE Proph given/why not?: Warfarin (Coumadin)
[2017-01-10] MEDS ORDERED: MCRK20 PO (15:54)
--- NOTE | 2017-01-10 18:44 | Discharge Summary ---
Discharge Summary Date of Service Jan 10, 2017. Discharge Summary Admission Date: Jan 08, 2017 at 07:10 Discharge Date: Jan 10, 2017 Discharge Disposition: Home Principal Diagnosis: Syncopal episode,Likely secondary to Orthostatic Hypotension,CMP Consultations: Cardiology Medication Reconciliation New Medications: Potassium Chloride (Klor-Con M20) 20 Meq Tabcr 20 MEQ PO 3XWK for 30 Days, #30 MEQ Continued Medications: Alprazolam (Xanax) 1 Mg Tab 0.5-1 MG PO QID PRN for STRESS Home O2 Therapy (Oxygen) Gas 2 LITERS NA HS&PRN Lisinopril (Lisinopril) 5 Mg Tab 2.5 MG PO QPM for 30 Days, #30 TAB Metoprolol Succinate (Toprol Xl) 50 Mg Tabcr 100 MG PO BID Pantoprazole (Protonix) 40 Mg Tab 40 MG PO BID, TAB Spironolactone (Spironolactone) 25 Mg Tab 25 MG PO DAILY for 30 Days, #30 TAB Torsemide (Torsemide) 20 Mg Tab 1 TAB PO BID for 30 Days, #60 TAB Travoprost (Travatan Z) 0.004 % Paul 1 DROP OPB HS Warfarin Sod (Jantoven) 5 Mg Tab 5 MG PO QPM, TAB Admission Information HPI (per Admitting provider): 66 year old female with history of Ischemic Cardiomyopathy, EF <20% s/p AICD, Atrial Flutter on coumadin, presenting with weakness. Patient states she was doing fine until about 1 week ago when started to have diarrhea, >5x a day, associated with generalized abdominal discomfort, and occasional hematochezia. She also has poor oral intake, and was still taking her diuretics. Last night, patient was talking to her friend on the phone and states she cannot recall what exactly happened after. She reports EMS came to her apartment last night, and thinks her friend may have called them to check on her. Patient states her left lower lip is hurting, also has some left sided headache. She also reports occasional palpitations for the past few days. On exam, patient is oriented x 3, but appears anxious. Denies dizziness, nausea, chest pain, does have dyspnea on exertion. No active abdominal pain, nausea/vomiting. Denies other symptoms. Past Medical/Surgical History Medical Problems: (1) Calculus of kidney and ureter Status: Resolved (2) Cardiomyopathy Permanent Comment: idiopathic echo 10/9/11 [facility] global hypokinesis, LVEF 20-25%, mural thrombus Status: Chronic (3) Chronic osteoarthritis Status: Chronic (4) Dyslipidemia Status: Chronic (5) Hypothyroidism Status: Chronic (6) Left bundle branch block Status: Chronic (7) left ventricular mural thrombus Permanent Comment: noted on echo 02/10/11 Status: Chronic (8) Mitral valve regurgitation Status: Chronic (9) Pulmonary hypertension Status: Chronic (10) s/p arthroscopy/meniscectomy right knee Permanent Comment: 2003 Status: Resolved (11) s/p cardiac catheterization Permanent Comment: 09/21/09 normal coronaries Status: Resolved (12) s/p colonoscopy Permanent Comment: 2008 internal hemorrhoids Status: Resolved (13) s/p EGD Permanent Comment: 03/22/11 [facility] gastritis Status: Resolved (14) s/p hysterectomy Status: Resolved (15) s/p ORIF right humerus fracture Status: Resolved (16) s/p pacemaker insertion Permanent Comment: 03/26/10 Dr. Wallace [facility] [place] Status: Resolved (17) s/p placement AICD Status: Resolved (18) s/p sinus surgery Status: Resolved (19) s/p ROBYN left Permanent Comment: 08/14/11 Dr. Butcher [facility] Status: Resolved (20) s/p ROBYN right Permanent Comment: 05/09/11 Dr. Butcher [facility] Status: Resolved (21) Systolic heart failure Permanent Comment: LVEF 20-25% by echo 2010 Status: Chronic Family History FH: breast cancer SISTER FH: lung disease FATHER Social History Smoking Status: Never Smoker Drug Use: none Marital Status: Housing status: lives alone Occupational Status: disabled Immunizations History of Influenza Vaccine: No History of Tetanus Vaccine?: Yes Tetanus Immunization Date: Mar 21, 2005 History of Pneumococcal: Yes Pneumococcal Date: May 09, 2009 History of Hepatitis B Vaccine: Yes Multi-Drug Resistant Organisms History of MDRO: No Allergies Coded Allergies: Cefazolin (Verified Allergy, Severe, ANAPHYLAXIS, 01/08/17) Phenytoin (Verified Allergy, Intermediate, HIVES, 01/08/17) PER ROUTINE PREOP ORDERS [id number] Diphenhydramine (Verified Allergy, Mild, HAS OPPOSITE EFFECTS, 01/08/17) Zolpidem (Verified Allergy, Mild, HAS OPPOSITE EFFECTS, 01/08/17) Ciprofloxacin (Verified Allergy, Unknown, UNKNOWN, 01/08/17) Clindamycin (Verified Allergy, Unknown, UNKNOWN, 01/08/17) Fentanyl (Verified Allergy, Unknown, HAS OPPOSITE EFFECTS, 01/08/17) Ivabradine (Unverified Allergy, Unknown, RASH/DEPLETED POTASSIUM IN BOODY , 01/08/17) Tramadol (Verified Adverse Reaction, Intermediate, SEIZURE, 01/08/17) PER ROUTINE PRE-OP ORDERS [id number] Home Medications Scheduled Home O2 Therapy (Oxygen), 2 LITERS NA HS&PRN Lisinopril (Lisinopril), 2.5 MG PO QPM Metoprolol Succinate (Toprol Xl), 100 MG PO BID Pantoprazole (Protonix), 40 MG PO BID Spironolactone (Spironolactone), 25 MG PO DAILY Torsemide (Torsemide), 1 TAB PO BID Travoprost (Travatan Z), 1 DROP OPB HS Warfarin Sod (Jantoven), 5 MG PO QPM Scheduled PRN Alprazolam (Xanax), 0.5-1 MG PO QID PRN for STRESS Review of Systems Constitutional- no fever; no weight loss Eyes- no acute visual changes ENT- no sinus drainage; no pharyngitis Pulmonary- no cough, no wheezing, no shortness of breath Cardiac- no chest pain,(+) palpitations, no orthopnea, no dependent edema GI- (+) as noted above - no dysuria, no hematuria Musculoskeletal- no arthralgias, no myalgias Derm- no rashes, no new skin lesions, no changing skin lesions Hematologic- no unusual bruising, no unusual bleeding Lymphatics- no adenopathy Endocrine- no polyuria or polydipsia; no heat or cold intolerance Neuro- no headaches, no focal neurologic symptoms Psych- no anxiety, no depression Physical Ex - H&P Physical Exam Vital Signs Date Time Temp Pulse Resp B/P (MAP) Pulse Ox O2 Delivery O2 Flow Rate FiO2 01/08/17 05:25 78 22 117/57 97 01/08/17 04:13 96 Room Air 01/08/17 04:13 96 Room Air 01/08/17 04:05 93 01/08/17 04:04 36.7 85 20 100/73 96 Room Air General Appearance: WD/WN, no apparent distress, + pertinent finding (anxious, appeared tired) Head: normocephalic, atraumatic Eyes: normal inspection, EOMI, sclerae normal ENT: normal ENT inspection, hearing grossly normal, pharynx normal Neck: supple, no adenopathy, thyroid normal, no JVD, trachea midline Respiratory/Chest: chest non-tender, lungs clear, normal breath sounds, no respiratory distress, no accessory muscle use Cardiovascular: regular rate, rhythm, no edema, no JVD, no murmur Abdomen/GI: normal bowel sounds, non tender, soft, no organomegaly Back: normal inspection, no CVA tenderness Extremities/Musculoskelatal: normal inspection, no calf tenderness, no pedal edema, normal range of motion Neurologic/Psych: radar scientist II-XII nml as tested, no motor/sensory deficits, alert, normal mood/affect, oriented x 3 Skin: normal color, warm/dry, no rash Lymphatic: no adenopathy Diagnostics - H&P Diagnostics Laboratory Results Results Past 24 Hours Test 01/08/17 04:25 01/08/17 04:50 Range/Units White Blood Count 12.51 4.8-10.8 K/uL Red Blood Count 4.63 4.2-5.4 M/uL Hemoglobin 12.9 12.0-16.0 g/dL Hematocrit 37.3 37-47 % Mean Corpuscular Volume 80.6 80-100 fL Mean Corpuscular Hemoglobin 27.9 25-34 pg Mean Corpuscular Hemoglobin Concent 34.6 32-36 g/dl Platelet Count 241 130-400 K/uL Mean Platelet Volume 9.2 7.4-10.4 fL Neutrophils (%) (Auto) 82.4 % Lymphocytes (%) (Auto) 10.5 % Monocytes (%) (Auto) 6.6 % Eosinophils (%) (Auto) 0.0 % Basophils (%) (Auto) 0.1 % Neutrophils # (Auto) 10.32 1.4-6.5 K/uL Lymphocytes # (Auto) 1.31 1.2-3.4 K/uL Monocytes # (Auto) 0.82 0.11-0.59 K/uL Eosinophils # (Auto) 0.00 0-0.5 K/uL Basophils # (Auto) 0.01 0-0.2 K/uL RDW Standard Deviation 44.6 36.4-46.3 fL RDW Coefficient of Variation 15.4 11.5-14.5 % Immature Granulocyte % (Auto) 0.4 % Immature Granulocyte # (Auto) 0.05 0.00-0.02 K/uL Sodium Level 132 136-145 mmol/L Potassium Level 2.9 3.5-5.1 mmol/L Chloride Level 94 98-107 mmol/L Carbon Dioxide Level 29 21-32 mmol/L Anion Gap 9.0 3-11 mmol/L Blood Urea Nitrogen 13 7-18 mg/dl Creatinine 1.30 0.60-1.20 mg/dl Est Creatinine Clear Calc Drug Dose 40.9 ml/min Estimated GFR () 50.2 Estimated GFR (Non- 43.3 BUN/Creatinine Ratio 10.3 10-20 Random Glucose 114 70-99 mg/dl Calcium Level 8.9 8.5-10.1 mg/dl Magnesium Level 1.7 1.8-2.4 mg/dl Total Bilirubin 0.7 0.2-1 mg/dl Direct Bilirubin 0.2 0-0.2 mg/dl Aspartate Amino Transf (AST/SGOT) 20 15-37 U/L Alanine Aminotransferase (ALT/SGPT) 17 12-78 U/L Alkaline Phosphatase 120 45-117 U/L Total Creatine Kinase 299 26-192 U/L Creatine Kinase MB 6.3 0.5-3.6 ng/ml Creatine Kinase MB Ratio 2.1 0-3.0 Troponin I < 0.015 0-0.045 ng/ml Total Protein 7.4 6.4-8.2 gm/dl Albumin 3.9 3.4-5.0 gm/dl Lipase 157 73-393 U/L Thyroid Stimulating Hormone (TSH) 0.780 0.300-4.500 uIu/ml Urine Color YELLOW Urine Appearance CLEAR CLEAR Urine pH 5.5 4.5-7.5 Urine Specific [place] 1.042 1.000-1.030 Urine Protein NEG NEG Urine Glucose (UA) NEG NEG Urine Ketones TRACE NEG Urine Occult Blood NEG NEG Urine Nitrite NEG NEG Urine Bilirubin NEG NEG Urine Urobilinogen NEG NEG Urine Leukocyte Esterase TRACE NEG Urine WBC (Auto) 0-5 /hpf Urine RBC (Auto) 0-4 /hpf Urine Hyaline Casts (Auto) 0-5 /lpf Urine Epithelial Cells (Auto) 0-5 /lpf Urine Bacteria (Auto) NEG Urine RBC 0-4 0-4 /hpf Urine WBC 1-5 0-5 /hpf Urine Epithelial Cells 20-30 0-5 /lpf Urine Bacteria NEG NEG Diagnostic Radiology CLINICAL HISTORY: CHEST PAIN pain COMPARISON STUDY: 11/11/2016 FINDINGS: Mild stable cardia megaly. Permanent bipolar cardiac pacemaker. Mild chronic left basilar interstitial change. Mild chronic elevation left hemidiaphragm. Lungs otherwise are clear. IMPRESSION: Chronic and postoperative change. No acute process. EKG HR 79, paced rhythm Impression - H&P Impression Assessment and Plan 66 year old female with history of Ischemic Cardiomyopathy, EF <20% s/p AICD, Atrial Flutter on coumadin, presenting with weakness. DIARRHEA - check stool for culture and C diff - patient allergic to Cipro and has prolonged QT - gentle IV fluids- 1 L NSS at 60cc/hr HEMATOCHEZIA - Hg 12 - check fecal occult blood - may need to hold coumadin if (+) hematochezia EPISODE OF ALTERED MENTAL STATUS - poor recollection of events last night - likely from Dehydration - ff up CT head EEG ordered Neuro checks ACUTE RENAL FAILURE - likely pre renal from diarrhea - gently IV fluids HYPO K AND MG - from GI losses - PO K and IV Mg given - repeat K and Mg at 830am CHF, CARDIOMYOPATHY EF <20% S/P AICD - on the dry side - gently IV fluids Torsemide and Spironolactone held - AICD interrogation ordered ATRIAL FLUTTER - INR pending - usually on coumadin 5mg po daily on Metoprolol DVT PROPHYLAXIS - on coumadin FULL CODE PER PATIENT DISPOSITION will need PT/OT lives alone in her apartment VTE Prophylaxis VTE Risk Assessment Done? Y/N: Yes Risk Level: Moderate Given or contraindicated: Warfarin (Coumadin) Physical Exam (per Admitting): General Appearance: WD/WN, no apparent distress, + pertinent finding ( anxious, appeared tired) Head: normocephalic, atraumatic Eyes: normal inspection, EOMI, sclerae normal ENT: normal ENT inspection, hearing grossly normal, pharynx normal Neck: supple, no adenopathy, thyroid normal, no JVD, trachea midline Respiratory/Chest: chest non-tender, lungs clear, normal breath sounds, no respiratory distress, no accessory muscle use Cardiovascular: regular rate, rhythm, no edema, no JVD, no murmur Abdomen/GI: normal bowel sounds, non tender, soft, no organomegaly Back: normal inspection, no CVA tenderness Extremities/Musculoskelatal: normal inspection, no calf tenderness, no pedal edema, normal range of motion Neurologic/Psych: radar scientist II-XII nml as tested, no motor/sensory deficits, alert , normal mood/affect, oriented x 3 Skin: normal color, warm/dry, no rash Lymphatic: no adenopathy Hospital Course 66 year old female with history of Ischemic Cardiomyopathy, EF <20% s/p AICD, Atrial Flutter on Coumadin, presenting with weakness. DIARRHEA- stopped spontaneously - check stool for culture and C diff - patient allergic to Cipro and has prolonged QT - gentle IV fluids- 1 L NSS at 60cc/hr -diarrhea stopped -C Diff test-never done HEMATOCHEZIA - Hg 12 - check fecal occult blood - may need to hold Coumadin if (+) hematochezia -Likely from Hemorrhoids-patient admits to have Hemorrhoids -No real issue EPISODE OF ALTERED MENTAL STATUS-resolved - poor recollection of events last night - likely from Dehydration and hypotension -doubt any seizure activity - ff up CT head-negative -EEG ordered-result pending -Neuro checks-no abnormality- ACUTE RENAL FAILURE - likely pre renal from diarrhea - gently IV fluids -Improved HYPO K AND MG - from GI losses - PO K and IV Mg given - repeat K and Mg at 830am -corrected CHF, CARDIOMYOPATHY EF <20% S/P AICD - on the dry side - gently IV fluids -Torsemide and Spironolactone held - AICD interrogation -Appreciate Cardiology evaluation -Hold Diuretics for the next 2 days ATRIAL FLUTTER - INR pending - usually on Coumadin 5mg po daily -on Metoprolol -No acute symptoms DVT PROPHYLAXIS - on Coumadin -INR 3.8 today -hold Coumadin today -follow up with the Coag clinic FULL CODE PER PATIENT DISPOSITION Patient is ambulating Will discharge home today Total time spent on discharge = 35 minutes This includes examination of the patient, discharge planning, medication reconciliation, and communication with other providers. Discharge Instructions Date of Service Jan 10, 2017. Admission Reason for Admission: Acute Renal Failure Discharge Discharge Diagnosis / Problem: Syncopal episode,Likely secondary to Orthostatic Hypotension,CMP Discharge Goals Goal(s): Prevent Disease Progression Activity Recommendations Activity Limitations: resume your previous activity . Instructions / Follow-Up Instructions / Follow-Up DR Christopher on on 01/15/17 at 1:45PM (check Electrolytes) and Dr Hernandez on 01/20/17 at 3:05 PM.Please keep appointment with coagulation clinic. Do note the Diuretics for the next 2 days.Do not take any Coumadin today and tomorrow. Current Hospital Diet Patient's current hospital diet: Low Lactose Diet, AHA Diet (Heart Healthy) Discharge Diet Recommended Diet: AHA Diet (Heart Healthy), Low Sodium Diet (2gm Na), Low Lactose Diet Fluid Restriction: 1500 ml (6 cups) Pending Studies Studies pending at discharge: no Medical Emergencies . Who to Call and When: Medical Emergencies: If at any time you feel your situation is an emergency, please call 911 immediately. . Non-Emergent Contact Non-Emergency issues call your: Primary Care Provider . Past History Medical & Surgical History: (1) CHF (congestive heart failure) (2) Diarrhea (3) Weakness (4) Acute renal failure (5) Hypokalemia (6) s/p placement AICD (7) s/p colonoscopy (8) s/p cardiac catheterization (9) left ventricular mural thrombus (10) Systolic heart failure (11) Pulmonary hypertension (12) Mitral valve regurgitation (13) Hypothyroidism (14) Cardiomyopathy . "Provider Documentation" section prepared by Vinay Bass. . VTE Core Measure Inpt VTE Proph given/why not?: Warfarin (Coumadin) <Electronically signed by Vinay Bass M.D.> Signed: 01/10/17 8513 Additional Copies To Adan Christopher M.D. (MEDICAL)
--- NOTE | 2017-01-10 19:04 | ELECTROENCEPHALOGRAPH REPORT ---
CLINICAL DIAGNOSIS: Syncope, question seizures. EEG DIAGNOSIS: Essentially normal during wakefulness. DESCRIPTION OF TRACING: This EEG obtained as a bedside recording and is of good technical quality. There were few muscle movement artifacts captured by simultaneous video analysis of patient movement and behavior. Photic stimulation was performed. Hyperventilation was not. Episode of drowsiness was recorded, but was never sustained. Under these conditions, there is evidence for normal appearing background rhythm in the alpha range of up to 10 Hz of maximum frequency and 30 microvolts of maximum amplitude. This is maximum posterior head regions bilaterally symmetrical. Polymorphic mid frequency theta activity is seen over all head regions without clear focal or regional predominance. Anterior head region maximum bilaterally symmetrical low voltage fast activity in the beta range is present. Photic stimulation provokes a modest driving response without a photomyogenic or photoparoxysmal component. Drowsiness is recorded episodically, but no abnormal activations occur during it. At no time during the waking or drowsy tracing is there evidence for potentially epileptogenic activity in the form of polyspike or spike wave bursts, focal sharp waves or focal spikes. INTERPRETATION: This EEG is essentially normal during wakefulness without evidence for focal or generalized encephalopathy and without evidence for potentially epileptogenic activity.
== END 2017-01-10 19:00 | disposition home or self-care (01) ==
LOC: EDBD 03:58 → C.EDB 04:00 → C.2T 07:10 → ENRESERV 07:32
PROVIDERS: ADMIT Internal Medicine; ATTEND Internal Medicine
DX: R10.9 Unspecified abdominal pain (principal); K92.1 Melena; R19.7 Diarrhea, unspecified; N17.9 Acute kidney failure, unspecified; R53.83 Other fatigue; E03.9 Hypothyroidism, unspecified; I48.92 Unspecified atrial flutter; Z79.899 Other long term (current) drug therapy; Z79.01 Long term (current) use of anticoagulants; F32.9 Major depressive disorder, single episode, unspecified; F41.9 Anxiety disorder, unspecified; R06.00 Dyspnea, unspecified

== ENCOUNTER 2017-04-20 21:15 | Inpatient (IN) | payer OTHER ==
[~2017-04-20] VITALS: Ht 167.6 cm; Wt 76.6 kg
[~2017-04-20 21:15] MED LIST changes: -ACET-749 PO; +MCRK20 PO; +METO-217 PO; -METO1TAB69 PO; +PANT1TAB3 PO; -PANT1TAB48 PO
--- NOTE | 2017-04-20 21:27 | EMERGENCY ROOM VISIT NOTE ---
History Report prepared by Tyrese: Jose Irizarry Under the Supervision of: Dr. Mc Rivers M.D. First contact with patient: 21:17 Chief Complaint: CARDIAC ASSESSMENT Stated Complaint: CARDIAC, DEFIB ACTIVATION History of Present Illness The patient is a 67 year old female who presents to the Emergency Room with complaints of an episode of tachycardia occurring today. Per EMS, the patient's defibrillator fired twice an hour ago. He notes that the patient last had a similar experience a year ago. The patient states that she was not experiencing any prior chest pain but noted that she was experiencing tachycardia. She denies any other pain. She notes that she is up to date on her tetanus shots. She reports that she is currently being seen by Dr. Mykel Caballero - Cardiology, [facility], for a possible heart transplant. Source of History: patient Onset: today Position: other (global) Quality: other (tachycardia) Timing: other (an episode) Associated Symptoms: No chest pain Note: She denies any pain. Review of Systems See HPI for pertinent positives and negatives. A total of ten systems were reviewed and were otherwise negative. Past Medical & Surgical Medical Problems: (1) Acute renal failure (2) Calculus of kidney and ureter (3) Cardiomyopathy (4) CHF (congestive heart failure) (5) Chronic osteoarthritis (6) Dyslipidemia (7) Hypokalemia (8) Hypothyroidism (9) Inguinal hernia (10) Left bundle branch block (11) left ventricular mural thrombus (12) Mitral valve regurgitation (13) Pulmonary hypertension (14) s/p arthroscopy/meniscectomy right knee (15) s/p cardiac catheterization (16) s/p colonoscopy (17) s/p EGD (18) s/p hysterectomy (19) s/p ORIF right humerus fracture (20) s/p pacemaker insertion (21) s/p placement AICD (22) s/p sinus surgery (23) s/p ROBYN left (24) s/p ROBYN right (25) Systolic heart failure (26) Ventricular fibrillation (27) Ventricular tachycardia Family History FH: breast cancer SISTER FH: lung disease FATHER Social History Smoking Status: Never Smoker Alcohol Use: none Drug Use: none Marital Status: Housing Status: lives with family Occupation Status: disabled Current/Historical Medications Scheduled Amitriptyline HCl (Amitriptyline HCl), 25 MG PO HS Digoxin (Digitek), 125 MCG PO MWF Home O2 Therapy (Oxygen), 2 LITERS NA HS&PRN Lisinopril (Lisinopril), 2.5 MG PO QPM Magnesium Oxide (Mag-Ox), 400 MG PO DAILY Metolazone (Metolazone), 1-2 TIMES A WEEK Metoprolol Succinate (Toprol Xl), 100 MG PO BID Pantoprazole (Protonix), 40 MG PO BID Potassium Chloride (Klor-Con M20), 20 MEQ PO 3XWK Spironolactone (Spironolactone), 25 MG PO DAILY Torsemide (Torsemide), 1 TAB PO BID Travoprost (Travatan Z), 1 DROP OPB HS Warfarin Sod (Jantoven), 5 MG PO 5XWK Warfarin Sod (Jantoven), 7.5 MG PO 2XWK Scheduled PRN Alprazolam (Xanax), 0.5-1 MG PO QID PRN for STRESS Allergies Coded Allergies: Cefazolin (Verified Allergy, Severe, ANAPHYLAXIS, 04/20/17) Phenytoin (Verified Allergy, Intermediate, HIVES, 04/20/17) PER ROUTINE PREOP ORDERS [id number] Diphenhydramine (Verified Allergy, Mild, HAS OPPOSITE EFFECTS, 04/20/17) Zolpidem (Verified Allergy, Mild, HAS OPPOSITE EFFECTS, 04/20/17) Ciprofloxacin (Verified Allergy, Unknown, UNKNOWN, 04/20/17) Clindamycin (Verified Allergy, Unknown, UNKNOWN, 04/20/17) Fentanyl (Verified Allergy, Unknown, HAS OPPOSITE EFFECTS, 04/20/17) Ivabradine (Unverified Allergy, Unknown, RASH/DEPLETED POTASSIUM IN BOODY , 04/20/17) Tramadol (Verified Adverse Reaction, Intermediate, SEIZURE, 04/20/17) PER ROUTINE PRE-OP ORDERS [id number] Physical Exam Vital Signs Date Time Temp Pulse Resp B/P (MAP) Pulse Ox O2 Delivery O2 Flow Rate FiO2 04/21/17 02:25 87 20 95/54 96 Room Air 04/21/17 01:35 88 20 118/79 96 Room Air 04/21/17 01:31 88 04/21/17 00:27 94 20 118/70 95 Room Air 04/20/17 23:18 101 20 127/86 96 Room Air 04/20/17 22:06 114 18 104/90 96 Room Air 04/20/17 21:23 96 Room Air 04/20/17 21:23 119 04/20/17 21:23 36.8 119 20 107/89 96 Room Air Physical Exam GENERAL: Awake, alert, well-appearing, in no distress, fatigued. HENT: Normocephalic, atraumatic. Oropharynx unremarkable. Dry mucous membrane. EYES: Normal conjunctiva. Sclera non-icteric. NECK: Supple. No nuchal rigidity. FROM. No JVD. RESPIRATORY: Clear to auscultation. CARDIAC: Regular rate, normal rhythm. Extremities warm and well perfused. Pulses equal. ABDOMEN: Soft, non-distended. No tenderness to palpation. No rebound or guarding. No masses. RECTAL: Deferred. MUSCULOSKELETAL: Chest examination reveals no tenderness. The back is symmetrical on inspection without obvious abnormality. There is no CVA tenderness to palpation. No joint edema. LOWER EXTREMITIES: Calves are equal size bilaterally and non-tender. No edema. No discoloration. NEURO: Normal sensorium. No sensory or motor deficits noted. SKIN: No rash or jaundice noted. Medical Decision & Procedures ER Provider Diagnostic Interpretation: Radiology results as stated below per my review and radiologist interpretation: CHEST ONE VIEW PORTABLE FINDINGS: Left subclavian implanted cardiac defibrillator with leads to the right atrium, coronary sinus, and right ventricular apex. Additional epicardial lead projects over the aortopulmonary window. An external lead also projects over the mediastinum. Cardiac silhouette mildly enlarged. Lungs and pleural spaces clear. Cortical plate and screw fixation of the right humerus. Upper abdomen normal. IMPRESSION: 1. No acute cardiopulmonary disease. Electronically signed by: Karl Hale M.D. 04/20/2017 10:45 PM Laboratory Results Test 04/20/17 21:30 04/20/17 21:42 04/20/17 22:09 04/21/17 01:30 Magnesium Level 2.0 mg/dl (1.8-2.4) Total Bilirubin 0.2 mg/dl (0.2-1) Direct Bilirubin < 0.1 mg/dl (0-0.2) Aspartate Amino Transf (AST/SGOT) 15 U/L (15-37) Alanine Aminotransferase (ALT/SGPT) 12 U/L (12-78) Alkaline Phosphatase 114 U/L (45-117) Troponin I 0.037 ng/ml (0-0.045) Pro-B-Type Natriuretic Peptide 2822 pg/ml (0-900) Total Protein 6.8 gm/dl (6.4-8.2) Albumin 3.2 gm/dl (3.4-5.0) Lipase 273 U/L (73-393) Digoxin Level 0.2 ng/ml (0.8-2.0) Bedside Hemoglobin 10.9 g/dl (12.0-16.0) Bedside Hematocrit 32 % (37-47) Bedside Sodium 140 mEq/L (135-144) Bedside Potassium 3.4 mEq/L (3.3-5.0) Bedside Chloride 103 mEq/L (101-112) Bedside Total CO2 24 mEq/l (24-31) Bedside Blood Urea Nitrogen 8 mg/dl (7-18) Bedside Creatinine 0.9 mg/dl (0.6-1.3) Bedside Glucose (other) 128 mg/dl (70-99) Bedside Ionized Calcium (Renu) 1.10 mmol/l (1.12-1.32) Bedside Troponin I < 0.030 ng/ml (0-0.045) Prothrombin Time 11.8 SECONDS (9.0-12.0) Prothromb Time International Ratio 1.1 (0.9-1.1) Urine Color YELLOW Urine Appearance CLEAR (CLEAR) Urine pH 6.5 (4.5-7.5) Urine Specific [place] 1.008 (1.000-1.030) Urine Protein NEG (NEG) Urine Glucose (UA) NEG (NEG) Urine Ketones NEG (NEG) Urine Occult Blood NEG (NEG) Urine Nitrite NEG (NEG) Urine Bilirubin NEG (NEG) Urine Urobilinogen NEG (NEG) Urine Leukocyte Esterase TRACE (NEG) Urine WBC (Auto) 1-5 /hpf (0-5) Urine RBC (Auto) 0-4 /hpf (0-4) Urine Hyaline Casts (Auto) 0 /lpf (0-5) Urine Epithelial Cells (Auto) 10-20 /lpf (0-5) Urine Bacteria (Auto) NEG (NEG) Laboratory results reviewed by me Medications Administered Medications (Trade) Dose Ordered Sig/Anusha Route Start Time Stop Time Status Last Admin Dose Admin Alprazolam (Xanax Tab) 1 mg NOW STAT PO 04/20/17 22:08 04/20/17 22:09 DC 04/20/17 22:20 1 MG Aspirin (Aspirin Chew) 324 mg NOW STAT PO 04/20/17 22:16 04/20/17 22:17 DC 04/20/17 22:20 324 MG Potassium Chloride (Klor-Con Tab) 40 meq NOW STAT PO 04/21/17 00:23 04/21/17 00:29 DC 04/21/17 00:47 40 MEQ Promethazine HCl 12.5 mg/Sodium Chloride 50.5 ml @ 204 mls/hr NOW STAT IV 04/21/17 01:06 04/21/17 01:20 DC 04/21/17 01:28 204 MLS/HR ECG Indication: tachycardia Rate (beats per minute): 116 Rhythm: other (ventricular paced) Findings: no acute ischemic change, other (Normal axis) ED Course 2116: The patient was evaluated in room C1. A complete history and physical exam was performed. 2206: I paged [facility] Cardiology. 2214: Upon reexamination, the patient was stable. I discussed the test results and treatment plan with her. I spoke to Dr. Ann - clean out driller wagon drill operator at [facility]. He accepts the patient for transfer, and suggests that the patient be directly transferred to the [facility] emergency department. 2300: I spoke to Dr. Thomas. We spoke about getting a bed for the patient and then arranging for air transport. Medical Decision I reviewed the patient's past medical history, medications, and the nursing notes as described above. Differential diagnoses include: arrhythmia, ACS, CHF, pneumonia, bronchitis, UTI , dehydration, and electrolyte abnormality. The patient is a 67 yo woman with pmhx of Ischemic Cardiomyopathy, EF <20% s/p AICD, Atrial Flutter on coumadin being evaluated by [facility] (Dr. Mykel Caballero) for possible heart transplant is to emergency department after having episodes of racing heart followed by shocks by her AICD. On arrival the patient is fatigue and uncomfortable but in no acute distress. She is afebrile with mild tachycardia the 110s but vital signs otherwise stable. Interrogation of the patient's AICD demonstrates to runs of V. tach of rates greater than 200 lasting for 40 seconds. Second shock was not clean cardioversion and there was some residual V. tach until spontaneous resolution. Case was discussed with Dr. Lowry, [facility] cardiology on-call, is familiar with the patient's case and recommends transfer to [facility] as the patient has end-stage heart failure and will be best served in a specialty care Center. Case was discussed with Dr. Ann coating inspector on-call at [facility] except the patient for transfer and recommends transfer to the emergency department. Transfer center was called and patient was then accepted as direct admission by Cardiology Attending, Dr. Thomas. Bed assignment confirmed. Unfortunately, currently there is inclement weather making transfer unlikely however final decision still pending. I discussed the case with [facility] Gia Yi[facility], who is aware of the patient should transport not be possible and he would admit the patient for further management. I additionally updated Dr. Lowry of this and is agreeable with this plan should transport not be possible. Medication Reconcilliation Current Medication List: was personally reviewed by me Blood Pressure Screening Patient's blood pressure: Normal blood pressure Blood pressure disposition: Did not require urgent referral Consults Time Called: 2212 Consulting Physician: Dr. Ann - clean out driller wagon drill operator at [facility] Returned Call: [address] Ann - clean out driller wagon drill operator at [facility]. He accepts the patient for transfer, and suggests that the patient be directly transferred to the [facility] emergency department Impression Primary Impression: Ischemic cardiomyopathy Additional Impression: Ventricular tachycardia Scribe Attestation The scribe's documentation has been prepared under my direction and personally reviewed by me in its entirety. I confirm that the note above accurately reflects all work, treatment, procedures, and medical decision making performed by me. Departure Information Dispostion Transfer Acute Care Facility Referrals Adan Christopher M.D. (MEDICAL) (PCP) Patient Instructions My [facility] Problem Qualifiers
[2017-04-20 22:02] LABS: HEMATOCRIT 33.2 % (37-47); MEAN CORPUSCULAR HEMOGLOBIN 27.2 pg (25-34); MEAN CORPUSCULAR HGB CONC 33.1 g/dl (32-36); MEAN PLATELET VOLUME 9.2 fL (7.4-10.4); PLATELET COUNT 265 K/uL (130-400); RED BLOOD COUNT 4.05 M/uL (4.2-5.4); WHITE BLOOD COUNT 7.09 K/uL (4.8-10.8)
[2017-04-20] MEDS ORDERED: ALPRAZOLAM 0.5 MG TAB PO STA (22:08)
[2017-04-20] MEDS ORDERED: ASPIRIN 81 MG CHEW PO STA (22:16)
[2017-04-20 22:17] LABS: ISTAT CREATININE 0.9 mg/dl (0.6-1.3); ISTAT HEMOGLOBIN 10.9 g/dl (12.0-16.0); ISTAT IONIZED CALCIUM 1.1 mmol/l (1.12-1.32)
[2017-04-20 22:25] LABS: ALT/SGPT 12 U/L (12-78); BLOOD UREA NITROGEN 9 mg/dl (7-18); CALCIUM 8.3 mg/dl (8.5-10.1); CARBON DIOXIDE 24 mmol/L (21-32); CHLORIDE 104 mmol/L (98-107); CREATININE 0.94 mg/dl (0.60-1.20); GLUCOSE 122 mg/dl (70-99); POTASSIUM 3.4 mmol/L (3.5-5.1); SODIUM 138 mmol/L (136-145)
[2017-04-20 22:30] LABS: ALKALINE PHOSPHATASE 114 U/L (45-117); AST/SGOT 15 U/L (15-37)
[2017-04-20 22:42] LABS: BASO % 0.6 %; BASO ABS # 0.04 K/uL (0-0.2); COMPLETE YES; EOS % 3.2 %; IG% 0.3 %; LYMPH ABS # 2.41 K/uL (1.2-3.4); MONO % 7.2 %; NEUT % 54.7 %
[2017-04-20] MEDS ORDERED: AMT25 PO (22:44)
[2017-04-20] MEDS ORDERED: WARF7.5T4 PO (22:44)
[2017-04-20] MEDS ORDERED: ZRX25 (22:44)
[2017-04-20] MEDS ORDERED: MAGN400T6 PO (22:44)
[2017-04-20] MEDS ORDERED: DIGO30TA PO (22:44)
--- NOTE | 2017-04-20 22:46 | DIAGNOSTIC IMAGING REPORT ---
CHEST ONE VIEW PORTABLE CLINICAL HISTORY: 67 years-old Female presenting with CHEST PAIN. TECHNIQUE: Portable upright AP view of the chest was obtained. COMPARISON: 01/08/2017. FINDINGS: Left subclavian implanted cardiac defibrillator with leads to the right atrium, coronary sinus, and right ventricular apex. Additional epicardial lead projects over the aortopulmonary window. An external lead also projects over the mediastinum. Cardiac silhouette mildly enlarged. Lungs and pleural spaces clear. Cortical plate and screw fixation of the right humerus. Upper abdomen normal. IMPRESSION: 1. No acute cardiopulmonary disease. Electronically signed by: Karl Hale M.D. 04/20/2017 10:45 PM Dictated Date/Time: 04/20/2017 10:44 PM
[2017-04-20 22:52] LABS: INR 1.1 (0.9-1.1); PROTHROMBIN TIME (PATIENT) 11.8 SECONDS (9.0-12.0)
[2017-04-21] VITALS (18 sets, daily range): BP systolic 79–107; BP diastolic 48–71; PULSE 75–90; TEMP 36.5–36.7; O2SAT 96–98; Ht 167.6 cm; Wt 76.6 kg
[2017-04-21] MEDS ORDERED: POTASSIUM CHLORIDE 20 MEQ TABCR PO STA (00:23)
[2017-04-21] MEDS ORDERED: PROMETHAZINE HCL INJ 12.5 MG in SODIUM CHLORIDE 0.9% 50ML 50 ML IV STA (01:06)
--- NOTE | 2017-04-21 01:14 | EMERGENCY ROOM VISIT NOTE ---
ED Visit Note First contact with patient: 01:00 67 yr old female being admitted to Hospitalist service due to CHF/ Tachyarrhythmia who is unable to be transferred to [facility] due to weather issues. Dr Rivers has already discussed the case with Dr Last who will be bringing patient in, as well as has talked to cardiology to make them aware. I was asked by nursing staff to order Phenergan for patient. I went and discussed case with patient, family and she notes she is feeling OK but after trying to take Potassium tablets became nauseous. She is requesting IV Phenergan which she notes she has tolerated previously without issue. To assist in care I placed order for this medication. She denies other current symptoms. Vitals stable. Awaiting Dr Last to bedside and orders.
[2017-04-21 01:57] LABS: URINE APPEARANCE CLEAR (CLEAR); URINE BILIRUBIN NEG (NEG); URINE COLOR YELLOW; URINE NITRITE NEG (NEG); URINE PH 6.5 (4.5-7.5); URINE SPECIFIC GRAVITY 1.008 (1.000-1.030); UROBILINOGEN NEG (NEG); ZZUR CULT IF INDIC CLEAN CATCH NO
[2017-04-21 01:58] LABS: MANUAL MICROSCOPIC REQUIRED? NO; REVIEW REQ? NO
[2017-04-21] MEDS ORDERED: AMIODARONE IV BOLUS / DRIP IV STA (02:52)
[2017-04-21] MEDS ORDERED: AMIODARONE 150MG / 100ML D5W ONE (03:07)
[2017-04-21] MEDS ORDERED: AMIODARONE HCL INJ 50 MG/ML 3 ML VIAL ONE (03:07)
[2017-04-21] MEDS ORDERED: HEPARIN 25000 UNIT/500 ML D5W ONE (03:07)
[2017-04-21] MEDS ORDERED: LORAZEPAM 2 MG/ML 1 ML VIAL IV PRN (03:15)
[2017-04-21] MEDS ORDERED: NITROGLYCERIN 0.4 MG SL PER TAB CHARGE SL PRN (03:15)
[2017-04-21] MEDS ORDERED: PROCHLORPERAZINE INJ 5 MG in SYRINGE 4 ML IV PRN (03:15)
[2017-04-21] MEDS ORDERED: HYDROmorphone INJ 0.5 MG/0.5 ML SYR IV PRN (03:15)
[2017-04-21] MEDS ORDERED: ACETAMINOPHEN 325 MG TAB PO PRN (03:15)
[2017-04-21] MEDS ORDERED: OXYCODONE/ACETAMINOPHEN 5-325 TAB PO PRN (03:15)
[2017-04-21] MEDS ORDERED: HEPARIN IV LOW DOSE NO BOLUS SCH (03:27)
[2017-04-21] MEDS ORDERED: AMIODARONE / D5W 200 ML IV SCH (03:30)
[2017-04-21] MEDS ORDERED: POTASSIUM CHLORIDE PWD 20 MEQ PACK PO ONE (04:00)
[2017-04-21] MEDS: AMITRIPTYLINE HCL 25 MG TAB PO SCH ×2 (04:54→21:00)
[2017-04-21] MEDS: ALPRAZOLAM 0.5 MG TAB PO PRN ×3 (05:02→19:40)
[2017-04-21] MEDS ORDERED: LORAZEPAM INJ 0.5 MG in SYRINGE 0.75 ML IV PRN (05:15)
[2017-04-21 05:39] LABS: BASO % 0.5 %; BASO ABS # 0.04 K/uL (0-0.2); COMPLETE YES; EOS % 4.2 %; IG% 0.4 %; LYMPH % 44.9 %; LYMPH ABS # 3.57 K/uL (1.2-3.4); MEAN CELL VOLUME 83.5 fL (80-100); MEAN CORPUSCULAR HEMOGLOBIN 26.8 pg (25-34); MEAN CORPUSCULAR HGB CONC 32.1 g/dl (32-36); MEAN PLATELET VOLUME 9.3 fL (7.4-10.4); MONO % 7.5 %; NEUT % 42.5 %; PLATELET COUNT 276 K/uL (130-400); RED BLOOD COUNT 4.07 M/uL (4.2-5.4); WHITE BLOOD COUNT 7.95 K/uL (4.8-10.8)
--- NOTE | 2017-04-21 05:48 | Critical Care Consultation ---
Critical Care Consultation Date of Consultation: Apr 21, 2017. Attending Physician: Vinay Bass M.D. Reason for Consultation: 67-year-old female with significant past medical history of nonischemic cardiomyopathy with end-stage heart failure and EF of less than 20% requiring AICD placement who subsequently underwent 2 subsequent defibrillations this evening secondary to ventricular tachyarrhythmia. Patient on amiodarone drip and heparin drips pending transfer to [facility] for further evaluation and management. History of Present Illness Patient is an unfortunate 67-year-old female with a significant past medical history of nonischemic dilated cardiomyopathy and end-stage heart failure who presented to the emergency Department last evening after AICD discharge 2. She reports that she felt exhausted earlier this evening and, after taking a shower, she reports that she was lying on her couch when she became tachycardic. She felt a jitteriness throughout her body which she is expecting the past. She did take her evening medications. Shortly after, she felt a shock. A few seconds later, it happened again. She was able to contact EMS who subsequently brought the patient to the emergency department for further evaluation and management. While in the emergency setting, the patient had interrogation of the AICD performed which demonstrated 2 separate runs of ventricular tachyarrhythmia at a rate of greater than 200 last for approximately 40 seconds each. The patient did eventually spontaneously convert to sinus rhythm. The patient is not anemic. Her only significant electrolyte abnormality was a slight hypokalemia at 3.4. Digoxin level is very low at 0.2. The patient was subtherapeutic with an INR of 1.1. Apparently, emergency department physician spoke with the [facility] after discussing the case with [facility] cardiology. It was felt best that the patient be transferred to their facility, however the transfer was obstructed by poor weather. Because of this, the patient was to the ICU for close monitoring. She was started on an amiodarone drip as well as heparin drip for her subtherapeutic INR in the setting of atrial flutter and intramural thrombus. Upon arrival to the ICU, the patient complains of feeling tired and weak. She describes back discomfort which she reports is chronic. Otherwise, she reports feeling fine. She denies any recent headaches, dizziness, lightheadedness, chest pain, palpitations, short of breath, nausea, vomiting, or worsening diarrhea. The patient is reportedly in the process of being on the transplant list at the [facility]. She has an appointment on the for her final round of testing. She has been in close communication with their institution to this point. Past Medical/Surgical History Medical Problems: (1) Acute renal failure (2) AICD discharge (3) Calculus of kidney and ureter (4) Cardiomyopathy (5) CHF (congestive heart failure) (6) Chronic osteoarthritis (7) Dyslipidemia (8) Hypokalemia (9) Hypothyroidism (10) Inguinal hernia (11) Left bundle branch block (12) left ventricular mural thrombus (13) Mitral valve regurgitation (14) Pulmonary hypertension (15) s/p arthroscopy/meniscectomy right knee (16) s/p cardiac catheterization (17) s/p colonoscopy (18) s/p EGD (19) s/p hysterectomy (20) s/p ORIF right humerus fracture (21) s/p pacemaker insertion (22) s/p placement AICD (23) s/p sinus surgery (24) s/p ROBYN left (25) s/p ROBYN right (26) Systolic heart failure (27) Ventricular fibrillation (28) Ventricular tachycardia Family History FH: breast cancer SISTER FH: lung disease FATHER Noncontributory Social History Smoking Status: Never Smoker Smokeless Tobacco Use: No Alcohol Use: none Drug Use: none Marital Status: Housing Status: lives with family Occupation Status: disabled Allergies Coded Allergies: Cefazolin (Verified Allergy, Severe, ANAPHYLAXIS, 04/20/17) Phenytoin (Verified Allergy, Intermediate, HIVES, 04/20/17) PER ROUTINE PREOP ORDERS [id number] Diphenhydramine (Verified Allergy, Mild, HAS OPPOSITE EFFECTS, 04/20/17) Zolpidem (Verified Allergy, Mild, HAS OPPOSITE EFFECTS, 04/20/17) Ciprofloxacin (Verified Allergy, Unknown, UNKNOWN, 04/20/17) Clindamycin (Verified Allergy, Unknown, UNKNOWN, 04/20/17) Fentanyl (Verified Allergy, Unknown, HAS OPPOSITE EFFECTS, 04/20/17) Ivabradine (Unverified Allergy, Unknown, RASH/DEPLETED POTASSIUM IN BOODY , 04/20/17) Tramadol (Verified Adverse Reaction, Intermediate, SEIZURE, 04/20/17) PER ROUTINE PRE-OP ORDERS [id number] Home Medications Scheduled Amitriptyline HCl (Amitriptyline HCl), 25 MG PO HS Digoxin (Digitek), 125 MCG PO MWF Home O2 Therapy (Oxygen), 2 LITERS NA HS&PRN Lisinopril (Lisinopril), 2.5 MG PO QPM Magnesium Oxide (Mag-Ox), 400 MG PO DAILY Metolazone (Metolazone), 1-2 TIMES A WEEK Metoprolol Succinate (Toprol Xl), 100 MG PO BID Pantoprazole (Protonix), 40 MG PO BID Potassium Chloride (Klor-Con M20), 20 MEQ PO 3XWK Spironolactone (Spironolactone), 25 MG PO DAILY Torsemide (Torsemide), 1 TAB PO BID Travoprost (Travatan Z), 1 DROP OPB HS Warfarin Sod (Jantoven), 5 MG PO 5XWK Warfarin Sod (Jantoven), 7.5 MG PO 2XWK Scheduled PRN Alprazolam (Xanax), 0.5-1 MG PO QID PRN for STRESS Current Inpatient Medications Current Inpatient Medications Medications (Trade) Dose Ordered Sig/Anusha Route Start Time Stop Time Status Last Admin Dose Admin Heparin Sodium/ Dextrose 1 ea Q15M N/A 04/21/17 03:27 05/21/17 03:26 Acetaminophen (Tylenol Tab) 650 mg Q4H PRN PO 04/21/17 03:15 05/21/17 03:14 Lorazepam (Ativan Inj) 0.5 mg Q4H PRN IV 04/21/17 03:15 05/21/17 03:14 UNV Nitroglycerin (Nitrostat Tab) 0.4 mg UD PRN SL 04/21/17 03:15 05/21/17 03:14 Alprazolam (Xanax Tab) 0.5 mg QID PRN PO 04/21/17 03:15 05/21/17 03:14 Amitriptyline HCl (Elavil Tab) 25 mg HS PO 04/21/17 21:00 05/21/17 20:59 Magnesium Oxide (Mag-Ox Tab) 400 mg DAILY PO 04/21/17 09:00 05/21/17 08:59 Pantoprazole Sodium (Protonix Tab) 40 mg BID PO 04/21/17 09:00 05/21/17 08:59 Potassium Chloride (Klor-Con Tab) 20 meq DAILY PO 04/21/17 09:00 05/21/17 08:59 Travoprost (Travatan Z) 1 drops HS OPB 04/21/17 21:00 05/21/17 20:59 Digoxin (Lanoxin Tab) 0.125 mg MoWeFr@1600 PO 04/21/17 16:00 05/21/17 15:59 Oxycodone/ Acetaminophen (Percocet 5-325mg Tab) 1 tab Q6H PRN PO 04/21/17 03:15 05/05/17 03:14 Hydromorphone HCl (Dilaudid Inj) 0.5 mg Q3H PRN IV 04/21/17 03:15 05/05/17 03:14 Prochlorperazine Edisylate 5 mg/ Syringe 5 ml @ 5 mls/min Q6H PRN IV 04/21/17 03:15 05/21/17 03:14 Metoprolol Succinate (Toprol Xl Tab) 25 mg BID PO 04/21/17 09:00 05/21/17 08:59 Amiodarone HCL/ Dextrose 200 ml @ 33.3 mls/hr Q6H1M IV 04/21/17 03:30 04/21/17 09:30 04/21/17 03:39 33.3 MLS/HR Amiodarone HCL/ Dextrose 200 ml @ 16.7 mls/hr [id number] IV 04/21/17 09:31 05/21/17 09:30 Lisinopril (Zestril Tab) 2.5 mg QPM PO 04/21/17 21:00 05/21/17 20:59 Review of Systems A complete 10-point Review of Systems was discussed with the patient, with pertinent positives and negatives listed in the History of Present Illness. All remaining Review of Systems questions can be considered negative unless otherwise specified. Physical Exam Date Time Temp Pulse Resp B/P (MAP) Pulse Ox O2 Delivery O2 Flow Rate FiO2 04/21/17 04:01 85 17 103/69 97 Room Air 04/21/17 02:25 87 20 95/54 96 Room Air 04/21/17 01:35 88 20 118/79 96 Room Air 04/21/17 01:31 88 04/21/17 00:27 94 20 118/70 95 Room Air 04/20/17 23:18 101 20 127/86 96 Room Air 04/20/17 22:06 114 18 104/90 96 Room Air 04/20/17 21:23 96 Room Air 04/20/17 21:23 119 04/20/17 21:23 36.8 119 20 107/89 96 Room Air VITAL SIGNS - Vital signs and nursing notes were reviewed. GENERAL - 67-year-old female appearing her stated age who is in no acute distress. Communicates well with provider and answers questions appropriately. HEAD - NC/AT. EYES - PERRL with EOMI bilaterally. Sclera anicteric. Palpebral conjunctiva pink and moist with no injection noted. EARS - No deformities of external structures noted on gross examination bilaterally. NOSE - Midline and without cyanosis. MOUTH/OROPHARYNX - Without perioral cyanosis. Buccal mucosa pink and moist and without leukoplakia. Tongue midline with equal elevation of palate bilaterally. NECK - Neck with FROM. Supple to palpation. LUNGS - Chest wall symmetric without accessory muscle use, intercostals retractions, or central cyanosis. Normal vesicular breath sounds CTA B/L. No wheezes, rales, or rhonchi appreciated. CARDIAC - RRR with S1/S2. No murmur, rubs, or gallops appreciated. No reproducible tenderness to palpation appreciated over the anterior chest wall. ABDOMEN - Abdominal contour obese and without pulsations or visible masses. BS normoactive all four quadrants. No tenderness, palpable masses, hepatosplenomegaly, or ascites noted. EXTREMITIES - No clubbing or peripheral cyanosis. No pretibial edema present. +3 /5 radial and dorsalis pedis pulses palpated throughout. +5/5 strength noted in UE/LE bilaterally. NEUROLOGIC - Cranial nerves II through XII grossly intact. Sensory intact to light touch throughout. PSYCH - A&Ox3 and cooperates fully with examiner. Pt is very pleasant and interacts well with examiner. Laboratory Results Last 24 Hours Test 04/20/17 21:30 04/20/17 21:42 04/20/17 22:09 04/21/17 01:30 White Blood Count 7.09 K/uL Red Blood Count 4.05 M/uL Hemoglobin 11.0 g/dL Hematocrit 33.2 % Mean Corpuscular Volume 82.0 fL Mean Corpuscular Hemoglobin 27.2 pg Mean Corpuscular Hemoglobin Concent 33.1 g/dl Platelet Count 265 K/uL Mean Platelet Volume 9.2 fL Neutrophils (%) (Auto) 54.7 % Lymphocytes (%) (Auto) 34.0 % Monocytes (%) (Auto) 7.2 % Eosinophils (%) (Auto) 3.2 % Basophils (%) (Auto) 0.6 % Neutrophils # (Auto) 3.88 K/uL Lymphocytes # (Auto) 2.41 K/uL Monocytes # (Auto) 0.51 K/uL Eosinophils # (Auto) 0.23 K/uL Basophils # (Auto) 0.04 K/uL RDW Standard Deviation 49.4 fL RDW Coefficient of Variation 16.5 % Immature Granulocyte % (Auto) 0.3 % Immature Granulocyte # (Auto) 0.02 K/uL Activated Partial Thromboplast Time 25.7 SECONDS Partial Thromboplastin Ratio 1.0 Sodium Level 138 mmol/L Potassium Level 3.4 mmol/L Chloride Level 104 mmol/L Carbon Dioxide Level 24 mmol/L Anion Gap 9.0 mmol/L 17.0 mmol/L Blood Urea Nitrogen 9 mg/dl Creatinine 0.94 mg/dl Est Creatinine Clear Calc Drug Dose 62.6 ml/min Estimated GFR () 73.8 Estimated GFR (Non- 63.7 BUN/Creatinine Ratio 10.0 Random Glucose 122 mg/dl Calcium Level 8.3 mg/dl Magnesium Level 2.0 mg/dl Total Bilirubin 0.2 mg/dl Direct Bilirubin < 0.1 mg/dl Aspartate Amino Transf (AST/SGOT) 15 U/L Alanine Aminotransferase (ALT/SGPT) 12 U/L Alkaline Phosphatase 114 U/L Troponin I 0.037 ng/ml Pro-B-Type Natriuretic Peptide 2822 pg/ml Total Protein 6.8 gm/dl Albumin 3.2 gm/dl Lipase 273 U/L Digoxin Level 0.2 ng/ml Bedside Hemoglobin 10.9 g/dl Bedside Hematocrit 32 % Bedside Sodium 140 mEq/L Bedside Potassium 3.4 mEq/L Bedside Chloride 103 mEq/L Bedside Total CO2 24 mEq/l Bedside Blood Urea Nitrogen 8 mg/dl Bedside Creatinine 0.9 mg/dl Bedside Glucose (other) 128 mg/dl Bedside Ionized Calcium (Renu) 1.10 mmol/l Bedside Troponin I < 0.030 ng/ml Prothrombin Time 11.8 SECONDS Prothromb Time International Ratio 1.1 Urine Color YELLOW Urine Appearance CLEAR Urine pH 6.5 Urine Specific [place] 1.008 Urine Protein NEG Urine Glucose (UA) NEG Urine Ketones NEG Urine Occult Blood NEG Urine Nitrite NEG Urine Bilirubin NEG Urine Urobilinogen NEG Urine Leukocyte Esterase TRACE Urine WBC (Auto) 1-5 /hpf Urine RBC (Auto) 0-4 /hpf Urine Hyaline Casts (Auto) 0 /lpf Urine Epithelial Cells (Auto) 10-20 /lpf Urine Bacteria (Auto) NEG Diagnostic Results Radiological imaging and reports were reviewed by myself. Radiologist's Interpretation as follows: CHEST ONE VIEW PORTABLE CLINICAL HISTORY: 67 years-old Female presenting with CHEST PAIN. TECHNIQUE: Portable upright AP view of the chest was obtained. COMPARISON: 01/08/2017. FINDINGS: Left subclavian implanted cardiac defibrillator with leads to the right atrium, coronary sinus, and right ventricular apex. Additional epicardial lead projects over the aortopulmonary window. An external lead also projects over the mediastinum. Cardiac silhouette mildly enlarged. Lungs and pleural spaces clear. Cortical plate and screw fixation of the right humerus. Upper abdomen normal. IMPRESSION: 1. No acute cardiopulmonary disease. Assessment & Plan (1) AICD discharge (2) Hypokalemia (3) CHF (congestive heart failure) (4) Ventricular tachycardia (5) Cardiomyopathy (6) Mitral valve regurgitation (7) Pulmonary hypertension Reason Critically Ill: 67-year-old female with significant past medical history of nonischemic cardiomyopathy with end-stage heart failure and EF of less than 20% requiring AICD placement who subsequently underwent 2 subsequent defibrillations this evening secondary to ventricular tachyarrhythmia. Patient on amiodarone drip and heparin drips pending transfer to [facility] for further evaluation and management. Neuro - * CAM ICU: NEGATIVE * Chronic pain 2/2 Arthritides * Percocet/PRN Dilaudid. * Mental Health - Continue home Xanax/Amitriptyline Cardiac - * Nonischemic Cardiomyopathy w/ End Stage Heart Failure w/ an EF of <20% requiring AICD placement - s/p defibrillation x2 last evening * Interrogation of the AICD demonstrated two separate runs of V-tach of approximately 40 seconds each. * Started on Amiodarone bolus/gtt. * Continue home Rx per cardiology. * Check Dig level. * Plan to transfer to the [facility] this AM - weather permitting. * ECHO (11/12/2016): * -- Conclusions -- * There is global thinning of the left ventricular esparza. * The left ventricle is severely dilated. * There is severe global hypokinesis of the left ventricle. * Left ventricular systolic function is severely reduced. * The qualitative left ventricular ejection fraction is < 20% * There is moderate to severe mitral regurgitation. * The etiology of the metral regurtitation is secondary mitral regurgitation from left ventricular chamber dilatation with resultant leaflet motion in systole (Maeve functional classification Type IIIb ). * There is moderate tricuspid regurgitation. * Doppler findings do not suggest pulmonary hypertension. * Diastolic dysfunction, Grade III (restrictive pattern), consistent with markedly increased left atrial pressure. * The inferior vena cava diameter is collapsed at baseline, consistent with low right atrial pressure and low central venous pressure. * Compared to the prior study dated 10/01/13 , the LV systolic function is relatively unchanged. * Atrial Flutter: * Continue rate control medications. * Subtherapeutic INR - Heparin gtt started. Respiratory - * No h/o pulmonary disease. * Continuous Pulse Oximetry. * Supplemental O2 as needed. GI - * Continue home Protonix. * Regular diet. RENAL/LYTES - * Hypokalemia - 3.4: * Replaced in the ED and p/t arrival in the ICU. * Monitor closely as the patient has had dysrhythmias 2/2 hypokalemia in the past. - * No [place] at this time - would consider this for transport. * Strict I&Os ENDO - * No h/o DM or Thyroid Disease. HEME - * Stable H&H * Currently on Coumadin 2/2 A.flutter - currently on Heparin gtt 2/2 subtherapeutic INR. ID - * No concerns for infection at this time. * Monitor fever curve. LINES/IV ACCESS - * PIVs intact x2. DVT PROPHYLAXIS - * Heparin gtt * SCDs I have personally spent 35 minutes of critical care time in the direct management of this patient. This is a life/limb threatening event. This includes time spent evaluating patient, direct bedside care, chart review, placing orders, interpretation of diagnostic studies, discussion with consultants, patient, and family members, as well as other required patient management activities. This time is exclusive of all separately billable procedures, and teaching time and separate from and in addition to any other critical care service time. Thank you for this consultation allow us to be part of this patient's care. Please refer to my attending physician's documentation for any further recommendations. I have personally evaluated and examined this patient. I agree with assessment and plan of Tyson Suarez PA-C. I discussed the case with Dr. Lowry of cardiology. He stated the patient was stable for transfer via ground EMS with an amiodarone infusion as well as a heparin infusion for intramural thrombus. During my evaluation the patient was hemodynamically stable, disappointed with the recent turn of events. I reviewed the documentation of the overnight, the patient was unable to be transferred via helicopter EMS secondary to weather conditions. Per report with case management nursing the earliest we were able to facilitate ground transfer was at 1900 hrs. this evening. Problem Qualifiers (1) CHF (congestive heart failure): Congestive heart failure type: unspecified congestive heart failure type Congestive heart failure chronicity: unspecified congestive heart failure chronicity Qualified Codes: I50.9 - Heart failure, unspecified
[2017-04-21] MEDS ORDERED: HEPARIN 25,000 UNIT/500ML D5W 500 ML IV PRN (06:00)
[2017-04-21 06:12] LABS: BUN/CREATININE RATIO 11.1 (10-20); CALCIUM 8.5 mg/dl (8.5-10.1); CREATININE 0.86 mg/dl (0.60-1.20); POTASSIUM 3.5 mmol/L (3.5-5.1)
--- NOTE | 2017-04-21 07:18 | HISTORY & PHYSICAL EXAMINATION ---
DATE OF ADMISSION: 04/21/2017 PRIMARY CARE PHYSICIAN: Dr. Christopher. CHIEF COMPLAINT: Defibrillator shock . HISTORY OF PRESENT ILLNESS: History obtained from patient and records. Medical history significant for chronic systolic heart failure secondary to idiopathic cardiomyopathy, EF of 15-20% (TTE 11/2016) sp ICD, hx VF, chronic LBBB, hx of atrial flutter sp PPM, LV thrombus on Coumadin, chronic anemia (baseline hemoglobin is 11-12), IBS, diarrhea predominant, past history of seizures per patient, anxiety/mood disorder. Recent confinement last January 2017 for syncope secondary to diarrheal illness and hypotension.. Yesterday, the patient was not feeling well, appetite not too good. She was watching an action flick on TV when she felt her ICD fire twice, some lightheadedness. Patient denies fluid retention. Px compliant with home medications. Patient brought to the Emergency Room. Interrogation of ICD demonstrated runs of V-tach with rates greater than 200 lasting for about 40 seconds. [employer] information systems consultant recommended transfer to [facility] following patient/ family request. Currently unable to transfer via air secondary to inclement weather. MEDICAL HISTORY: As above. Last April 2016, the patient had a right side heart catheterization at the [facility] which showed chronic systolic and diastolic heart failure. Patient was to return return to [facility] this week for additional workup in preparation for cardiac transplantation. A 2D echo from November 2016 showed global thickening of LV wall, severe LV dilatation, severe global hypokinesis LV, EF less than 20%, moderate to severe MR, moderate TR, no pulmonary hypertension, grade II diastolic dysfunction, collapsed IVC. SURGERIES: She has had ICD placement, hysterectomy, shoulder surgery, sinus surgery, hip surgery. HOME MEDICATIONS: Include Xanax, amitriptyline, digoxin, oxygen at night, mag oxide, metolazone, Protonix, Toprol, Trileptal. ALLERGIES: ALLERGIC TO CEFAZOLIN, CLINDAMYCIN, DIPHENHYDRAMINE, FENTANYL, PHENYTOIN, CIPRO, ZOLPIDEM, TRAMADOL, IVABRADINE. FAMILY HISTORY: Breast cancer, lung disease. PERSONAL AND SOCIAL HISTORY: Nonsmoker, no chronic ETOH intake. 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 REVIEW OF SYSTEMS: As per HPI, all 10 systems reviewed. All other ROS negative. PHYSICAL EXAMINATION: VITAL SIGNS: Blood pressure was noted to be 107/80, pulse rate noted to be 94, RR 20, temperature 36.8, sats 96 on room air. GENERAL: Noted to be slightly anxious. No respiratory distress. SKIN: Pallor, warm. HEENT: Pale palpebral conjunctivae. No ptosis. Dry buccal mucosa. NECK: Short neck, supple. CHEST: Clear to auscultate. No tenderness. HEART: Diminished S1, S2. systolic murmur. ABDOMEN: Some distension, nontender. EXTREMITIES: Minimal LE edema, no tenderness. No gross deformities. NEUROLOGIC: Coherent. No gross focality. LABORATORY DATA: Hemoglobin was 11, hematocrit 30, white cell count was noted to be 7, platelets noted to be 265. Sodium 138, potassium 3.4, chloride noted to be 104, CO2 noted to be 24, BUN 9, creatinine 0.9, glucose 122, troponin noted to be 0.03. Chest x-ray showed defibrillator, borderline cardiomegaly, no congestion. EKG as per my interpretation rate 115, paced rhythm. ASSESSMENT: 1. Implantable cardioverter defibrillator shock 2 to Paroxysmal ventricular tachycardia 2. history of chronic systolic heart failure, nonischemic cardiomyopathy sp ICD. The patient on the dry side. Patient currently completing workup for for cardiac transplantation. 3. hx LBBB 4. hx AFlutter sp PPM, cardiac thrombus on Coumadin, INR subtherapeutic. 5. HTN, BP on the lower side 6. Hypokalemia secondary to diuretic therapy. 7. Diarrhea predominant IBS as per px PLAN: ICU monitoring as per Cardiology recommendations until patient can be transferred to [facility] once weather permits. (Patient already accepted for transfer by Dr. Ann, supervisor [employer] textile information systems consultant under the service of Dr. Thomas as per ER documentation.) IV Amiodarone to suppress malignant ventricular arrhythmia for now. Decrease home beta carola given borderline blood pressure. Replace K, hold home diuretics for now IV heparin for now for thromboembolic prevention (history of cardiac thrombus/AFlutter, subtherapeutic INR while Coumadin on hold) DVT prophylaxis, IV heparin. Full code. Total critical time was 45 minutes. MTDD
[2017-04-21] MEDS: PANTOprazole SOD 40 MG TAB PO SCH ×2 (07:21→20:57)
[2017-04-21] MEDS ORDERED: METOPROLOL SUCC 50MG EXT REL TAB PO SCH (09:00)
[2017-04-21] MEDS ORDERED: POTASSIUM CHLORIDE 20 MEQ TABCR PO SCH (09:00)
[2017-04-21] MEDS ORDERED: MAGNESIUM OXIDE 400 MG TAB PO SCH (09:00)
[2017-04-21 09:39] LABS: PARTIAL THROMBOPLASTIN RATIO 1.3
[2017-04-21] MEDS: AMIODARONE / D5W 200 ML IV SCH ×2 (10:58→20:56)
[2017-04-21] MEDS: METOPROLOL SUCC 25MG EXT REL TAB PO SCH ×2 (11:05→20:57)
[2017-04-21] MEDS ORDERED: HEPARIN IV BOLUS 4,500 UNIT in SYRINGE 0 ML IV ONE (12:00)
--- NOTE | 2017-04-21 12:00 | Cardiology Consultation ---
Cardiology Consultation Date of Consultation: Apr 21, 2017 Requesting Physician: Dr. Last Attending Health Worker: Dr. Lowry (Perla Pena PA-C) History of Present Illness Patient is a 67 year old very complex female who is well known to our [facility] Cardiology service, typically following with Dr. Hernandez/Madeline Paulino PA-C. She has also been followed closely by CHF/transplant clinic at [facility]. She had recent right heart cath last week in prep for transplant list. Results not available. Patient states she was in her usual state of health yesterday, except for possibly more fatigued. She went to get a shower and felt very exhausted after getting dressed. She sat down to relax and watch TV. [place] sudden onset palpitations/fluttering. No dizziness, syncope or near syncope. She then received one ICD shock. About 30 seconds later she received another shock. She was able to walk to the phone and summoned 911. No recurrent ICD therapies on route to ER. In ER ICD was interrogated which demonstrated VT > 200 bpm with appropriate therapeutic shocks. She was started on IV amiodarone. INR was serotherapeutic and she was started on IV heparin given history of mural thrombus. Potassium mildly low and supplemented. [facility] was notified and accepted transfer, but unfortunately weather prohibited the flight and she was admitted to [place] ICU to await transfer/bed. At time of consult, patient feeling fairly well. No recurrent VT on telemetry. Remains on IV Amio and IV heparin. BP borderline low. Patient asymptomatic. Denies symptoms of chest pain, SOB at rest, increased edema, orthopnea, PND, fever or chills. Mild abdominal bloating noted, which is chronic. Notes dyspnea with minimal exertion (baseline). Still awaiting transfer information. (Perla Pena PA-C) Past Medical/Surgical History Problem List: 1. Nonischemic dilated cardiomyopathy, diagnosed in September 2009, with severe LV dysfunction, EF 20%. 2. Normal coronary anatomy by diagnostic cardiac catheterization in 2009. 3. NYHA, class IIIB, stage C systolic congestive heart failure with multiple decompensations. 4. Status post biventricular pacer-defibrillator implantation, with ventricular lead initially disabled, then upgrade with epicardial lead placement via left thoracotomy 01/09/2016. 5. History of appropriate ICD (implantable cardioverter- defibrillator) discharge for ventricular fibrillation in April 2016. 6. Chronic resting sinus tachycardia. 7. History of degenerative joint disease. Medical Problems: (1) Acute renal failure (2) Calculus of kidney and ureter (3) Cardiomyopathy (4) CHF (congestive heart failure) (5) Chronic osteoarthritis (6) Dyslipidemia (7) Hypokalemia (8) Hypothyroidism (9) Inguinal hernia (10) Left bundle branch block (11) left ventricular mural thrombus (12) Mitral valve regurgitation (13) Pulmonary hypertension (14) s/p arthroscopy/meniscectomy right knee (15) s/p cardiac catheterization (16) s/p colonoscopy (17) s/p EGD (18) s/p hysterectomy (19) s/p ORIF right humerus fracture (20) s/p pacemaker insertion (21) s/p placement AICD (22) s/p sinus surgery (23) s/p ROBYN left (24) s/p ROBYN right (25) Systolic heart failure (26) Ventricular fibrillation (27) Ventricular tachycardia (Perla Pena PA-C) Family History FH: breast cancer SISTER FH: lung disease FATHER (Perla Pena PA-C) FH: breast cancer SISTER FH: lung disease FATHER (Delmer Lowry D.OTina) Social History Smoking Status: Never Smoker Smokeless Tobacco Use: No Alcohol Use: none Drug Use: none Marital Status: Housing Status: lives alone Occupation: disabled (Perla Pena PA-C) Review Of Systems General: The patient denies weight change, night sweats, fever, chills. Head: The patient denies headache and prior head trauma. Cardiovascular: The patient denies chest pain or chest discomfort, dyspnea on exertion, palpitations, PND, orthopnea, edema, spontaneous shortness of breath, syncope and near syncope. Pulmonary: The patient denies cough, wheeze, pleurisy, hemoptysis, sputum, and excessive snoring. Gastrointestinal: The patient denies nausea, vomiting, diarrhea, constipation, bloating, hematemesis, hematochezia, and abdominal pain. Skin: The patient denies diaphoresis and rash. Musculoskeletal: The patient denies joint pain, joint swelling, myalgia, back pain, neck pain and prior injuries. Neurological: The patient denies prior stroke and seizures (Perla Pena, RADHA) Allergies Coded Allergies: Cefazolin (Verified Allergy, Severe, ANAPHYLAXIS, 04/20/17) Phenytoin (Verified Allergy, Intermediate, HIVES, 04/20/17) PER ROUTINE PREOP ORDERS [id number] Diphenhydramine (Verified Allergy, Mild, HAS OPPOSITE EFFECTS, 04/20/17) Zolpidem (Verified Allergy, Mild, HAS OPPOSITE EFFECTS, 04/20/17) Ciprofloxacin (Verified Allergy, Unknown, UNKNOWN, 04/20/17) Clindamycin (Verified Allergy, Unknown, UNKNOWN, 04/20/17) Fentanyl (Verified Allergy, Unknown, HAS OPPOSITE EFFECTS, 04/20/17) Ivabradine (Unverified Allergy, Unknown, RASH/DEPLETED POTASSIUM IN BOODY , 04/20/17) Tramadol (Verified Adverse Reaction, Intermediate, SEIZURE, 04/20/17) PER ROUTINE PRE-OP ORDERS [id number] Medications Reported Home Medications Medications Dose Route/Sig Max Daily Dose Days Date Category Dose Instructions Mag-Ox (Magnesium Oxide) 400 Mg Tab 400 Mg PO DAILY 04/20/17 Reported Amitriptyline HCl 25 Mg Tab 25 Mg PO HS 04/20/17 Reported Metolazone 2.5 Mg Tab 1-2 TIMES A WEEK 04/20/17 Reported Digitek (Digoxin) 0.125 Mg Tab 125 Mcg PO MWF 04/20/17 Reported Jantoven (Warfarin Sodium) 7.5 Mg Tab 7.5 Mg PO 2XWK 04/20/17 Reported FRIDAY AND FRIDAY Klor-Con M20 (Potassium Chloride) 20 Meq Tabcr 20 Meq PO 3XWK 30 01/10/17 Rx Toprol Xl (Metoprolol Succinate) 50 Mg Tabcr 100 Mg PO BID 01/08/17 Reported Torsemide 20 Mg Tab 1 Tab PO BID 30 11/14/16 Rx Spironolactone 25 Mg Tab 25 Mg PO DAILY 30 11/14/16 Rx Lisinopril 5 Mg Tab 2.5 Mg PO QPM 30 11/14/16 Rx Jantoven (Warfarin Sodium) 5 Mg Tab 5 Mg PO 5XWK 05/02/16 Reported EXCEPT FRIDAY AND FRIDAY Xanax (Alprazolam) 1 Mg Tab 0.5-1 Mg PO QID PRN 05/02/16 Reported Oxygen Gas 2 Liters NA HS&PRN 12/19/14 Reported Protonix (Pantoprazole) 40 Mg Tab 40 Mg PO BID 12/28/13 Reported Travatan Z (Travoprost) 0.004 % Paul 1 Drop OPB HS 01/17/13 Reported (Perla Pena PA-C) Physical Exam Vital Signs (Last 8hrs): Last 8 Hrs Date Time Temp Pulse Resp B/P (MAP) Pulse Ox O2 Delivery O2 Flow Rate FiO2 04/21/17 08:01 81 23 93/50 (64) 98 Nasal Cannula 2.0 04/21/17 08:00 83 19 97 04/21/17 07:30 97 Nasal Cannula 2.0 04/21/17 07:21 36.6 86 17 93/63 (73) 97 04/21/17 07:01 81 20 79/48 (58) 97 04/21/17 07:00 81 20 97 04/21/17 06:00 83 2 94/53 (67) 97 Nasal Cannula 2.0 04/21/17 04:10 36.6 80 20 107/69 Nasal Cannula 2.0 04/21/17 04:01 85 17 103/69 97 Room Air 04/21/17 02:25 87 20 95/54 96 Room Air 04/21/17 01:35 88 20 118/79 96 Room Air 04/21/17 01:31 88 General Appearance: Alert and Oriented x3. NAD. Pale. Head: Normocephalic Atraumatic. Eyes: PERRLA, EOMI, conjunctiva and sclera clear Neck: Supple. No carotid bruits noted. No JVD. No HJD. Respiratory: decreased breath sounds, otherwise clear. Cardiovascular: Mildly tachycardic. No audbile murmurs. Abdomen: Normal bowel sounds, soft nontender. no abdominal bruits. Extremities: No edema, no clubbing or cyanosis. distal pulses 2/4 bilaterally. Neuro: No focal deficits. Psychiatric: Flat affect. (Perla Pena PA-C) Data Last 24 Hours Test 04/20/17 21:30 04/20/17 21:42 04/20/17 22:09 04/21/17 01:30 White Blood Count 7.09 K/uL Red Blood Count 4.05 M/uL Hemoglobin 11.0 g/dL Hematocrit 33.2 % Mean Corpuscular Volume 82.0 fL Mean Corpuscular Hemoglobin 27.2 pg Mean Corpuscular Hemoglobin Concent 33.1 g/dl Platelet Count 265 K/uL Mean Platelet Volume 9.2 fL Neutrophils (%) (Auto) 54.7 % Lymphocytes (%) (Auto) 34.0 % Monocytes (%) (Auto) 7.2 % Eosinophils (%) (Auto) 3.2 % Basophils (%) (Auto) 0.6 % Neutrophils # (Auto) 3.88 K/uL Lymphocytes # (Auto) 2.41 K/uL Monocytes # (Auto) 0.51 K/uL Eosinophils # (Auto) 0.23 K/uL Basophils # (Auto) 0.04 K/uL RDW Standard Deviation 49.4 fL RDW Coefficient of Variation 16.5 % Immature Granulocyte % (Auto) 0.3 % Immature Granulocyte # (Auto) 0.02 K/uL Activated Partial Thromboplast Time 25.7 SECONDS Partial Thromboplastin Ratio 1.0 Sodium Level 138 mmol/L Potassium Level 3.4 mmol/L Chloride Level 104 mmol/L Carbon Dioxide Level 24 mmol/L Anion Gap 9.0 mmol/L 17.0 mmol/L Blood Urea Nitrogen 9 mg/dl Creatinine 0.94 mg/dl Est Creatinine Clear Calc Drug Dose 62.6 ml/min Estimated GFR () 73.8 Estimated GFR (Non- 63.7 BUN/Creatinine Ratio 10.0 Random Glucose 122 mg/dl Calcium Level 8.3 mg/dl Magnesium Level 2.0 mg/dl Total Bilirubin 0.2 mg/dl Direct Bilirubin < 0.1 mg/dl Aspartate Amino Transf (AST/SGOT) 15 U/L Alanine Aminotransferase (ALT/SGPT) 12 U/L Alkaline Phosphatase 114 U/L Troponin I 0.037 ng/ml Pro-B-Type Natriuretic Peptide 2822 pg/ml Total Protein 6.8 gm/dl Albumin 3.2 gm/dl Lipase 273 U/L Digoxin Level 0.2 ng/ml Bedside Hemoglobin 10.9 g/dl Bedside Hematocrit 32 % Bedside Sodium 140 mEq/L Bedside Potassium 3.4 mEq/L Bedside Chloride 103 mEq/L Bedside Total CO2 24 mEq/l Bedside Blood Urea Nitrogen 8 mg/dl Bedside Creatinine 0.9 mg/dl Bedside Glucose (other) 128 mg/dl Bedside Ionized Calcium (Renu) 1.10 mmol/l Bedside Troponin I < 0.030 ng/ml Prothrombin Time 11.8 SECONDS Prothromb Time International Ratio 1.1 Urine Color YELLOW Urine Appearance CLEAR Urine pH 6.5 Urine Specific [place] 1.008 Urine Protein NEG Urine Glucose (UA) NEG Urine Ketones NEG Urine Occult Blood NEG Urine Nitrite NEG Urine Bilirubin NEG Urine Urobilinogen NEG Urine Leukocyte Esterase TRACE Urine WBC (Auto) 1-5 /hpf Urine RBC (Auto) 0-4 /hpf Urine Hyaline Casts (Auto) 0 /lpf Urine Epithelial Cells (Auto) 10-20 /lpf Urine Bacteria (Auto) NEG Test 04/21/17 05:16 White Blood Count 7.95 K/uL Red Blood Count 4.07 M/uL Hemoglobin 10.9 g/dL Hematocrit 34.0 % Mean Corpuscular Volume 83.5 fL Mean Corpuscular Hemoglobin 26.8 pg Mean Corpuscular Hemoglobin Concent 32.1 g/dl Platelet Count 276 K/uL Mean Platelet Volume 9.3 fL Neutrophils (%) (Auto) 42.5 % Lymphocytes (%) (Auto) 44.9 % Monocytes (%) (Auto) 7.5 % Eosinophils (%) (Auto) 4.2 % Basophils (%) (Auto) 0.5 % Neutrophils # (Auto) 3.38 K/uL Lymphocytes # (Auto) 3.57 K/uL Monocytes # (Auto) 0.60 K/uL Eosinophils # (Auto) 0.33 K/uL Basophils # (Auto) 0.04 K/uL RDW Standard Deviation 51.2 fL RDW Coefficient of Variation 16.7 % Immature Granulocyte % (Auto) 0.4 % Immature Granulocyte # (Auto) 0.03 K/uL Sodium Level 139 mmol/L Potassium Level 3.5 mmol/L Chloride Level 106 mmol/L Carbon Dioxide Level 29 mmol/L Anion Gap 4.0 mmol/L Blood Urea Nitrogen 10 mg/dl Creatinine 0.86 mg/dl Est Creatinine Clear Calc Drug Dose 68.2 ml/min Estimated GFR () 82.2 Estimated GFR (Non- 70.9 BUN/Creatinine Ratio 11.1 Random Glucose 94 mg/dl Calcium Level 8.5 mg/dl Imaging: Chest xray - unremarkable. EKG: Ventricular paced rhythm. Telemetry reviewed: NSR/Sinus tachycardia with ventricular pacing noted (Perla Pena, RADHA) Assessment & Plan ASSESSMENT: 67 year old female 1. Paroxysmal VT, receiving AICD shock x2. No recurrent arrhythmias with IV amiodarone. 2. History of chronic end stage systolic heart failure, nonischemic cardiomyopathy sp ICD. Appears euvolemic. 3. Mild hypokalemia - supplement 4. History of atrial flutter, on Coumadin. INR subtherapeutic, on IV heparin. 5. History of LV mural thrombus 6. LBBB PLAN Continue IV heparin and IV amiodarone Continue home dose Toprol Await transfer to [facility] for further evaluation. Is being worked up for cardiac transplant list. Case discussed with Dr. Lowry. Will follow while at [place]. (Perla Pena, DICKSONC) Cardiology attending: Pt seen and examined, agree with findings and assessment as per Perla Castillo. I spoke with Drs. Rivers and Elba this AM. Pt had v-tach refractory to ICD shock, luckily, spontaneously resolved. Placed on amio gtt with no further episodes. Believe this increases her need for transplant or further mechanical support. Agree with transfer to [facility] where she is being seen by transplant team. Will be happy to help in anyway to facilitate. Will need to be sent on amio gtt. Cont po metoprolol succinate, unfortunately, unable to uptitrate due to chronic relative hypotension. Cont low dose lisinopril and dig. (Delmer Lowry, Deepika.OTina)
[2017-04-21] MEDS ORDERED: DIGOXIN 0.125 MG TAB PO SCH (16:00)
--- NOTE | 2017-04-21 16:13 | Progress Note ---
Medicine Progress Note Date & Time of Visit: Apr 21, 2017 at 16:05. Subjective 67 yoF with nonischemic cardiomyopathy s/p ICD who presented to the ER after two ICD shocks at home. She was admitted to the ICU and placed on amiodarone with no further events. She is otherwise asymptomatic at this time. She is being transferred to [facility] where she is undergoing a pre heart transplant workup-Dr Ann is accepting cardiac fellow under Dr. Thomas's service. ICU attending is facilitating the transfer. Tolerating PO, ambulatory, no increased work of breathing or chest pain. No other symptoms reported at this time. Objective Last 8 Hrs Date Time Temp Pulse Resp B/P (MAP) Pulse Ox O2 Delivery O2 Flow Rate FiO2 04/21/17 15:55 82 04/21/17 11:15 96 Room Air 04/21/17 11:03 36.7 87 16 101/71 (81) 98 Room Air 04/21/17 10:01 75 12 85/54 (64) 98 04/21/17 10:00 77 21 98 04/21/17 09:01 78 21 89/54 (66) 98 04/21/17 09:00 78 21 98 Physical Exam: GEN: WNWD, in no acute distress, alert and appropriate HEENT: NC/AT, pupils equal and round bilaterally,normal sclerae, MMM CARDIO: reg rate, S1/2 heard without m/g/r, no JVD LUNGS: CTA bilaterally, no crackles, rales or wheezes, good diaphragmatic excursion ABD: soft, non-tender, non-distended, no rebound or guarding, +BS EXTREMITY: RP and DP palpable 2+ bilat, no LE swelling or edema, extremities are warm and well-perfused NEURO: CN 2-12 grossly intact MUSC: ambulatory, no gross focal deficits. SKIN: warm and dry Laboratory Results: 04/21/17 05:16 Red Blood Count 4.07, Mean Corpuscular Volume 83.5, Mean Corpuscular Hemoglobin 26.8, Mean Corpuscular Hemoglobin Concent 32.1, Mean Platelet Volume 9.3, Neutrophils (%) (Auto) 42.5, Lymphocytes (%) (Auto) 44.9, Monocytes (%) (Auto) 7.5, Eosinophils (%) (Auto) 4.2, Basophils (%) (Auto) 0.5, Neutrophils # (Auto) 3.38, Lymphocytes # (Auto) 3.57, Monocytes # (Auto) 0.60, Eosinophils # (Auto) 0.33, Basophils # (Auto) 0.04 04/21/17 05:16 Test 04/20/17 21:30 04/20/17 21:42 04/20/17 22:09 04/21/17 01:30 Magnesium Level 2.0 mg/dl (1.8-2.4) Total Bilirubin 0.2 mg/dl (0.2-1) Direct Bilirubin < 0.1 mg/dl (0-0.2) Aspartate Amino Transf (AST/SGOT) 15 U/L (15-37) Alanine Aminotransferase (ALT/SGPT) 12 U/L (12-78) Alkaline Phosphatase 114 U/L (45-117) Troponin I 0.037 ng/ml (0-0.045) Pro-B-Type Natriuretic Peptide 2822 pg/ml (0-900) Total Protein 6.8 gm/dl (6.4-8.2) Albumin 3.2 gm/dl (3.4-5.0) Lipase 273 U/L (73-393) Digoxin Level 0.2 ng/ml (0.8-2.0) Bedside Hemoglobin 10.9 g/dl (12.0-16.0) Bedside Hematocrit 32 % (37-47) Bedside Sodium 140 mEq/L (135-144) Bedside Potassium 3.4 mEq/L (3.3-5.0) Bedside Chloride 103 mEq/L (101-112) Bedside Total CO2 24 mEq/l (24-31) Bedside Blood Urea Nitrogen 8 mg/dl (7-18) Bedside Creatinine 0.9 mg/dl (0.6-1.3) Bedside Glucose (other) 128 mg/dl (70-99) Bedside Ionized Calcium (Renu) 1.10 mmol/l (1.12-1.32) Bedside Troponin I < 0.030 ng/ml (0-0.045) Prothrombin Time 11.8 SECONDS (9.0-12.0) Prothromb Time International Ratio 1.1 (0.9-1.1) Urine Color YELLOW Urine Appearance CLEAR (CLEAR) Urine pH 6.5 (4.5-7.5) Urine Specific [place] 1.008 (1.000-1.030) Urine Protein NEG (NEG) Urine Glucose (UA) NEG (NEG) Urine Ketones NEG (NEG) Urine Occult Blood NEG (NEG) Urine Nitrite NEG (NEG) Urine Bilirubin NEG (NEG) Urine Urobilinogen NEG (NEG) Urine Leukocyte Esterase TRACE (NEG) Urine WBC (Auto) 1-5 /hpf (0-5) Urine RBC (Auto) 0-4 /hpf (0-4) Urine Hyaline Casts (Auto) 0 /lpf (0-5) Urine Epithelial Cells (Auto) 10-20 /lpf (0-5) Urine Bacteria (Auto) NEG (NEG) Test 04/21/17 05:16 04/21/17 09:21 White Blood Count 7.95 K/uL (4.8-10.8) Red Blood Count 4.07 M/uL (4.2-5.4) Hemoglobin 10.9 g/dL (12.0-16.0) Hematocrit 34.0 % (37-47) Mean Corpuscular Volume 83.5 fL (80-100) Mean Corpuscular Hemoglobin 26.8 pg (25-34) Mean Corpuscular Hemoglobin Concent 32.1 g/dl (32-36) Platelet Count 276 K/uL (130-400) Mean Platelet Volume 9.3 fL (7.4-10.4) Neutrophils (%) (Auto) 42.5 % Lymphocytes (%) (Auto) 44.9 % Monocytes (%) (Auto) 7.5 % Eosinophils (%) (Auto) 4.2 % Basophils (%) (Auto) 0.5 % Neutrophils # (Auto) 3.38 K/uL (1.4-6.5) Lymphocytes # (Auto) 3.57 K/uL (1.2-3.4) Monocytes # (Auto) 0.60 K/uL (0.11-0.59) Eosinophils # (Auto) 0.33 K/uL (0-0.5) Basophils # (Auto) 0.04 K/uL (0-0.2) RDW Standard Deviation 51.2 fL (36.4-46.3) RDW Coefficient of Variation 16.7 % (11.5-14.5) Immature Granulocyte % (Auto) 0.4 % Immature Granulocyte # (Auto) 0.03 K/uL (0.00-0.02) Anion Gap 4.0 mmol/L (3-11) Est Creatinine Clear Calc Drug Dose 68.2 ml/min Estimated GFR () 82.2 Estimated GFR (Non- 70.9 BUN/Creatinine Ratio 11.1 (10-20) Calcium Level 8.5 mg/dl (8.5-10.1) Activated Partial Thromboplast Time 33.6 SECONDS (21.0-31.0) Partial Thromboplastin Ratio 1.3 Date/Time Source Procedure Growth Status 04/21/17 04:15 Nasal MRSA DNA Surveillance Screen - Final Specimen Negative for MRSA by DNA Probe Complete Last 24 Hours Test 04/20/17 21:30 04/20/17 21:42 04/20/17 22:09 04/21/17 01:30 White Blood Count 7.09 K/uL Red Blood Count 4.05 M/uL Hemoglobin 11.0 g/dL Hematocrit 33.2 % Mean Corpuscular Volume 82.0 fL Mean Corpuscular Hemoglobin 27.2 pg Mean Corpuscular Hemoglobin Concent 33.1 g/dl Platelet Count 265 K/uL Mean Platelet Volume 9.2 fL Neutrophils (%) (Auto) 54.7 % Lymphocytes (%) (Auto) 34.0 % Monocytes (%) (Auto) 7.2 % Eosinophils (%) (Auto) 3.2 % Basophils (%) (Auto) 0.6 % Neutrophils # (Auto) 3.88 K/uL Lymphocytes # (Auto) 2.41 K/uL Monocytes # (Auto) 0.51 K/uL Eosinophils # (Auto) 0.23 K/uL Basophils # (Auto) 0.04 K/uL RDW Standard Deviation 49.4 fL RDW Coefficient of Variation 16.5 % Immature Granulocyte % (Auto) 0.3 % Immature Granulocyte # (Auto) 0.02 K/uL Activated Partial Thromboplast Time 25.7 SECONDS Partial Thromboplastin Ratio 1.0 Sodium Level 138 mmol/L Potassium Level 3.4 mmol/L Chloride Level 104 mmol/L Carbon Dioxide Level 24 mmol/L Anion Gap 9.0 mmol/L 17.0 mmol/L Blood Urea Nitrogen 9 mg/dl Creatinine 0.94 mg/dl Est Creatinine Clear Calc Drug Dose 62.6 ml/min Estimated GFR () 73.8 Estimated GFR (Non- 63.7 BUN/Creatinine Ratio 10.0 Random Glucose 122 mg/dl Calcium Level 8.3 mg/dl Magnesium Level 2.0 mg/dl Total Bilirubin 0.2 mg/dl Direct Bilirubin < 0.1 mg/dl Aspartate Amino Transf (AST/SGOT) 15 U/L Alanine Aminotransferase (ALT/SGPT) 12 U/L Alkaline Phosphatase 114 U/L Troponin I 0.037 ng/ml Pro-B-Type Natriuretic Peptide 2822 pg/ml Total Protein 6.8 gm/dl Albumin 3.2 gm/dl Lipase 273 U/L Digoxin Level 0.2 ng/ml Bedside Hemoglobin 10.9 g/dl Bedside Hematocrit 32 % Bedside Sodium 140 mEq/L Bedside Potassium 3.4 mEq/L Bedside Chloride 103 mEq/L Bedside Total CO2 24 mEq/l Bedside Blood Urea Nitrogen 8 mg/dl Bedside Creatinine 0.9 mg/dl Bedside Glucose (other) 128 mg/dl Bedside Ionized Calcium (Renu) 1.10 mmol/l Bedside Troponin I < 0.030 ng/ml Prothrombin Time 11.8 SECONDS Prothromb Time International Ratio 1.1 Urine Color YELLOW Urine Appearance CLEAR Urine pH 6.5 Urine Specific [place] 1.008 Urine Protein NEG Urine Glucose (UA) NEG Urine Ketones NEG Urine Occult Blood NEG Urine Nitrite NEG Urine Bilirubin NEG Urine Urobilinogen NEG Urine Leukocyte Esterase TRACE Urine WBC (Auto) 1-5 /hpf Urine RBC (Auto) 0-4 /hpf Urine Hyaline Casts (Auto) 0 /lpf Urine Epithelial Cells (Auto) 10-20 /lpf Urine Bacteria (Auto) NEG Test 04/21/17 05:16 04/21/17 09:21 White Blood Count 7.95 K/uL Red Blood Count 4.07 M/uL Hemoglobin 10.9 g/dL Hematocrit 34.0 % Mean Corpuscular Volume 83.5 fL Mean Corpuscular Hemoglobin 26.8 pg Mean Corpuscular Hemoglobin Concent 32.1 g/dl Platelet Count 276 K/uL Mean Platelet Volume 9.3 fL Neutrophils (%) (Auto) 42.5 % Lymphocytes (%) (Auto) 44.9 % Monocytes (%) (Auto) 7.5 % Eosinophils (%) (Auto) 4.2 % Basophils (%) (Auto) 0.5 % Neutrophils # (Auto) 3.38 K/uL Lymphocytes # (Auto) 3.57 K/uL Monocytes # (Auto) 0.60 K/uL Eosinophils # (Auto) 0.33 K/uL Basophils # (Auto) 0.04 K/uL RDW Standard Deviation 51.2 fL RDW Coefficient of Variation 16.7 % Immature Granulocyte % (Auto) 0.4 % Immature Granulocyte # (Auto) 0.03 K/uL Sodium Level 139 mmol/L Potassium Level 3.5 mmol/L Chloride Level 106 mmol/L Carbon Dioxide Level 29 mmol/L Anion Gap 4.0 mmol/L Blood Urea Nitrogen 10 mg/dl Creatinine 0.86 mg/dl Est Creatinine Clear Calc Drug Dose 68.2 ml/min Estimated GFR () 82.2 Estimated GFR (Non- 70.9 BUN/Creatinine Ratio 11.1 Random Glucose 94 mg/dl Calcium Level 8.5 mg/dl Activated Partial Thromboplast Time 33.6 SECONDS Partial Thromboplastin Ratio 1.3 Date/Time Source Procedure Growth Status 04/21/17 04:15 Nasal MRSA DNA Surveillance Screen - Final Specimen Negative for MRSA by DNA Probe Complete Assessment & Plan 67 yoF with nonischemic cardiomyopathy s/p ICD who presented to the ER after two ICD shocks at home. She was admitted to the ICU and placed on amiodarone with no further events. She is otherwise asymptomatic at this time. She is being transferred to [facility] where she is undergoing a pre heart transplant workup-Dr Ann is accepting cardiac fellow under Dr. Thomas's service. ICU attending is facilitating the transfer. 1. NICM s/p ICD with 2 shocks overnight 2/2 paroxysmal VT. Cardiology evaluated her, placed her on amio drip and heparin with h/o mural thrombus. Recommended transfer o as above. 2. hx LBBB 3. hx AFlutter sp PPM, cardiac thrombus on Coumadin, INR subtherapeutic. Placed on heparin drip. 4. HTN, BP on the lower side-management per ICU team. 5. Hypokalemia secondary to diuretic therapy. Replace and monitor DVT proph-IV heparin Full Code Dispo-transfer to CC. DO Carol Ramirez Hospitalist Consultants: ICU-[facility] Current Inpatient Medications: Current Inpatient Medications Medications (Trade) Dose Ordered Sig/Anusha Route Start Time Stop Time Status Last Admin Dose Admin Acetaminophen (Tylenol Tab) 650 mg Q4H PRN PO 04/21/17 03:15 05/21/17 03:14 Lorazepam (Ativan Inj) 0.5 mg Q4H PRN IV 04/21/17 03:15 05/21/17 03:14 Nitroglycerin (Nitrostat Tab) 0.4 mg UD PRN SL 04/21/17 03:15 05/21/17 03:14 Alprazolam (Xanax Tab) 0.5 mg QID PRN PO 04/21/17 03:15 05/21/17 03:14 04/21/17 11:02 0.5 MG Amitriptyline HCl (Elavil Tab) 25 mg HS PO 04/21/17 21:00 05/21/17 20:59 04/21/17 04:54 25 MG Magnesium Oxide (Mag-Ox Tab) 400 mg DAILY PO 04/21/17 09:00 05/21/17 08:59 04/21/17 07:21 400 MG Pantoprazole Sodium (Protonix Tab) 40 mg BID PO 04/21/17 09:00 05/21/17 08:59 04/21/17 07:21 40 MG Potassium Chloride (Klor-Con Tab) 20 meq DAILY PO 04/21/17 09:00 05/21/17 08:59 04/21/17 07:21 20 MEQ Travoprost (Travatan Z) 1 drops HS OPB 04/21/17 21:00 05/21/17 20:59 04/21/17 04:55 1 DROPS Digoxin (Lanoxin Tab) 0.125 mg MoWeFr@1600 PO 04/21/17 16:00 05/21/17 15:59 04/21/17 15:55 0.125 MG Oxycodone/ Acetaminophen (Percocet 5-325mg Tab) 1 tab Q6H PRN PO 04/21/17 03:15 05/05/17 03:14 Hydromorphone HCl (Dilaudid Inj) 0.5 mg Q3H PRN IV 04/21/17 03:15 05/05/17 03:14 Prochlorperazine Edisylate 5 mg/ Syringe 5 ml @ 5 mls/min Q6H PRN IV 04/21/17 03:15 05/21/17 03:14 Metoprolol Succinate (Toprol Xl Tab) 25 mg BID PO 04/21/17 09:00 05/21/17 08:59 04/21/17 11:05 25 MG Amiodarone HCL/ Dextrose 200 ml @ 16.7 mls/hr [id number] IV 04/21/17 09:31 05/21/17 09:30 04/21/17 10:58 16.7 MLS/HR Lisinopril (Zestril Tab) 2.5 mg QPM PO 04/21/17 21:00 05/21/17 20:59 Lorazepam 0.5 mg/ Syringe 1 ml @ 1 mls/min Q4H PRN IV 04/21/17 05:15 05/21/17 05:14 Heparin Sodium/ Dextrose 500 ml @ 19 mls/hr Q24H PRN IV 04/21/17 06:00 05/21/17 05:59
[2017-04-21 19:15] LABS: PARTIAL THROMBOPLASTIN RATIO 2.9
[2017-04-21] MEDS ORDERED: LISINOPRIL 5 MG TAB PO SCH (21:00)
[2017-04-21] MEDS ORDERED: TRAVOPROST Z 0.004% OPH SOLN 2.5 ML BTL OPB SCH (21:00)
[2017-04-21] MEDS ORDERED: LISINOPRIL 2.5 MG TAB PO SCH (21:00)
--- NOTE | 2017-04-26 08:59 | Discharge Instructions ---
Discharge Instructions Date of Service Apr 26, 2017. Admission Reason for Admission: Ventricular Tachycardia Discharge Discharge Diagnosis / Problem: VT, nonischemic dilated cardiomopathy Discharge Goals Goal(s): Therapeutic intervention Activity Recommendations Activity Limitations: per Instructions/Follow-up section . Instructions / Follow-Up Instructions / Follow-Up Please continue all medications as instructed. Please follow-up with your primary care physician within one week of discharge from receiving facility. It was a pleasure taking care of you! Call if you have any questions or problems. You can reach a [facility] hospitalist on duty at [facility] 24 hours a day by calling [phone]. Take care of yourself. Yandy Alcala DO [facility] Hospitalist Current Hospital Diet Patient's current hospital diet: AHA Diet (Heart Healthy), Low Lactose Diet Discharge Diet Recommended Diet: AHA Diet (Heart Healthy), Low Lactose Diet Pending Studies Studies pending at discharge: no Medical Emergencies . Who to Call and When: Medical Emergencies: If at any time you feel your situation is an emergency, please call 911 immediately. . Non-Emergent Contact Non-Emergency issues call your: Primary Care Provider, Furniture Finisher Helper . . "Provider Documentation" section prepared by Yandy Alcala. . VTE Core Measure Inpt VTE Proph given/why not?: Other Anticoagulation
--- NOTE | 2017-04-26 09:02 | Discharge Summary ---
Discharge Summary Date of Service Apr 26, 2017. 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 Consultations: ICU-[facility] Pending Studies/Follow-Up: see instructions below. Admission Information HPI (per Admitting provider): HISTORY OF PRESENT ILLNESS: History obtained from patient and records. Medical history significant for chronic systolic heart failure secondary to idiopathic cardiomyopathy, EF of 15-20% (TTE 11/2016) sp ICD, hx VF, chronic LBBB, hx of atrial flutter sp PPM, LV thrombus on Coumadin, chronic anemia (baseline hemoglobin is 11-12), IBS, diarrhea predominant, past history of seizures per patient, anxiety/mood disorder. Recent confinement last January 2017 for syncope secondary to diarrheal illness and hypotension.. Yesterday, the patient was not feeling well, appetite not too good. She was watching an action flick on TV when she felt her ICD fire twice, some lightheadedness. Patient denies fluid retention. Px compliant with home medications. Patient brought to the Emergency Room. Interrogation of ICD demonstrated runs of V-tach with rates greater than 200 lasting for about 40 seconds. Coil Binder national insurance officer recommended transfer to [facility] following patient/ family request. Currently unable to transfer via air secondary to inclement weather. Physical Exam (per Admitting): PHYSICAL EXAMINATION: VITAL SIGNS: Blood pressure was noted to be 107/80, pulse rate noted to be 94, RR 20, temperature 36.8, sats 96 on room air. GENERAL: Noted to be slightly anxious. No respiratory distress. SKIN: Pallor, warm. HEENT: Pale palpebral conjunctivae. No ptosis. Dry buccal mucosa. NECK: Short neck, supple. CHEST: Clear to auscultate. No tenderness. HEART: Diminished S1, S2. systolic murmur. ABDOMEN: Some distension, nontender. EXTREMITIES: Minimal LE edema, no tenderness. No gross deformities. NEUROLOGIC: Coherent. No gross focality. 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 In the ER her ICD was interrogated and revealed ventricular tachycardia at >200 bpm with appropriate therapeutic shocks. She was started on IV amiodarone. She was also started on IV heparin given that her INR was 1.1 and she had a h/o mural wall thrombus. She was transferred to the ICU while awaiting definitive transport to [facility]. Cardiology saw her and felt the transport necessary as these episodes increased her need for a transplant or further mechanical support. She was continued on her Toprol as well as lisinopril and digoxin; given her hypotension these could not be uptitrated. She was originally supposed to travel out by air but had to go by ground due to weather. At time of discharge she was afebrile and hemodynamically stable and was ambulating and mentating at baseline and tolerating PO. Her physical exam was unremarkable. She was sent out in guarded condition. Total time spent on discharge = 60 minutes This includes examination of the patient, discharge planning, medication reconciliation, and communication with other providers. [place] [address] Discharge Medical Patient Name: Natali Pandya Unit Number: [id number] Date of : 1950 Patient Status: Discharged Inpatient Attending Doctor: Vinay Bass M.D. DI: Medical v4 Discharge Instructions Date of Service Apr 26, 2017. Admission Reason for Admission: Ventricular Tachycardia Discharge Discharge Diagnosis / Problem: VT, nonischemic dilated cardiomopathy Discharge Goals Goal(s): Therapeutic intervention Activity Recommendations Activity Limitations: per Instructions/Follow-up section . Instructions / Follow-Up Instructions / Follow-Up Please continue all medications as instructed. Please follow-up with your primary care physician within one week of discharge from receiving facility. It was a pleasure taking care of you! Call if you have any questions or problems. You can reach a [facility] hospitalist on duty at [facility] 24 hours a day by calling [phone]. Take care of yourself. Yandy Alcala DO [facility] Hospitalist Current Hospital Diet Patient's current hospital diet: AHA Diet (Heart Healthy), Low Lactose Diet Discharge Diet Recommended Diet: AHA Diet (Heart Healthy), Low Lactose Diet Pending Studies Studies pending at discharge: no Medical Emergencies . Who to Call and When: Medical Emergencies: If at any time you feel your situation is an emergency, please call 911 immediately. . Non-Emergent Contact Non-Emergency issues call your: Primary Care Provider, Coil Binder . . "Provider Documentation" section prepared by Yandy Alcala. . VTE Core Measure Inpt VTE Proph given/why not?: Other Anticoagulation Additional Copies To Adan Christopher M.D. (MEDICAL)
== END 2017-04-21 21:20 | disposition short-term general hospital (02) | DRG 315 ==
LOC: EDBD 21:15 → C.EDC 21:16 → C.MSICU 04-21 02:50 → ENRESERV 04-21 03:23
PROVIDERS: ADMIT Internal Medicine; ATTEND Internal Medicine
DX: I42.0 Dilated cardiomyopathy (principal); I50.22 Chronic systolic (congestive) heart failure; N17.9 Acute kidney failure, unspecified; N20.2 Calculus of kidney with calculus of ureter; I47.2 Ventricular tachycardia; E78.5 Hyperlipidemia, unspecified; I34.0 Nonrheumatic mitral (valve) insufficiency; K58.9 Irritable bowel syndrome, unspecified; Z96.643 Presence of artificial hip joint, bilateral; M19.90 Unspecified osteoarthritis, unspecified site; E03.9 Hypothyroidism, unspecified; Z79.01 Long term (current) use of anticoagulants; I44.7 Left bundle-branch block, unspecified; I11.0 Hypertensive heart disease with heart failure; E87.6 Hypokalemia; T50.2X5A Adverse effect of carbonic-anhydrase inhibitors, benzothiadiazides and other diuretics, initial encounter; Z95.810 Presence of automatic (implantable) cardiac defibrillator; Y92.019 Unspecified place in single-family (private) house as the place of occurrence of the external cause